=== PATIENT | female | born 1935 | race Caucasian/White ===

== ENCOUNTER 2016-09-17 07:08 | Day surgery (SDC) | payer MEDICARE ==
[~2016-09-17] VITALS: Ht 160 cm; Wt 55.5 kg
[~2016-09-17 07:08] MED LIST: BENEPOW8 PO; CALC600T44 PO; COZA50TA PO; HYDR12.56 PO; LIDOCAINE 1%/EPINEPHrine 1:100,000 SOLN 20 ML VIAL ONE; METH5TAB PO; RIVA20 PO; TAB-TAB PO; ULTR50TA PO; VITA400C28 PO
[2016-09-17] MEDS ORDERED: METH5TAB PO (07:23)
[2016-09-17 07:24] VITALS: BP 149/87; PULSE 101; RESP 20; TEMP 98.2; O2SAT 98
[2016-09-17] MEDS ORDERED: HYDR12.57 PO (07:24)
[2016-09-17] MEDS ORDERED: COZA100T PO (07:24)
[2016-09-17] MEDS ORDERED: XARE20TA PO (07:25)
[2016-09-17] MEDS ORDERED: SODIUM CHLOR 0.9% 1000 ML IV SCH (08:00)
[2016-09-17] MEDS ORDERED: fentaNYL CITRATE 250 MCG/5 ML AMP ONE (08:29)
[2016-09-17] MEDS ORDERED: MIDAZOLAM HCL 5 MG/5 ML VIAL ONE (08:29)
[2016-09-17 09:40] VITALS: BP 103/63; PULSE 71; RESP 20; TEMP 96.3; O2SAT 94
[2016-09-17 09:55] VITALS: BP 96/56; PULSE 89; RESP 20; O2SAT 95
[2016-09-17] MEDS ORDERED: oxyCODONE/ACETAMINOPHEN 5 MG/325 MG TAB PO PRN (10:00)
--- NOTE | 2016-09-17 10:13 | RADRPT ---
EXAM DATE/TIME: 09/17/2016 08:42 [facility] COMPARISON: No previous studies available for comparison. INDICATIONS : Left chest wall mass. SEDATION TIME: 30 minutes BIOPSY SITE: Left chest wall. MEDICATION(S): 1.) 2.5 mg midazolam (Versed) IV 2.) 125 mcg fentanyl (Sublimaze) IV DEVICE(S): 1.) 18 gauge Temno core biopsy needle MEDICAL HISTORY : Carcinoma, breast. Diverticulosis. Hypertension. Chronic kidney disease. SURGICAL HISTORY : Mastectomy, left. Hysterectomy. Appendectomy. ENCOUNTER: Initial ACUITY: 1 day PAIN SCORE: 0/10 LOCATION: Left axilla/chest wall. A total of two core specimen(s) were obtained and sent to the laboratory for pathologic evaluation. PROCEDURE: 1. CT guided chest wall, left biopsy. 2. Conscious sedation with continuous EKG and oximetry monitoring. 3. EKG and oximetry remained stable throughout the procedure. Prior to the procedure informed consent was obtained. Any appropriate prior imaging studies were rev iewed. The site was prepped in a sterile fashion. Full sterile technique was used, including cap, mask, hoa rile gloves and gown and a large sterile sheet. Hand hygiene and 2% chlorhexidine and/or betadine/al cohol prep was utilized per protocol for cutaneous antisepsis. The skin and subcutaneous tissues wer e infiltrated with local anesthetic solution. With CT guidance the previously identified target was localized. Biopsy was performed using the presc ribed needle as above. Adequate hemostasis was obtained with compression at the puncture site. Follow-up CT scan reveals no hemorrhage. The patient tolerated the procedure well and there were no complications. The patient was returned to the Radiology Outpatient Unit in stable condition. CONCLUSION: Uncomplicated CT guided biopsy. Bassam Alonzo MD on September 17, 2016 at 10:11 Board Certified Radiologist. This report was verified electronically.
[2016-09-17 10:25] VITALS: BP 87/49; PULSE 87; RESP 20; O2SAT 95
[2016-09-17 10:55] VITALS: BP 92/52; PULSE 73; RESP 20; O2SAT 95
[2016-09-17 11:25] VITALS: BP 93/54; PULSE 82; RESP 20; O2SAT 97
== END 2016-09-17 11:50 | disposition home or self-care (01) ==
LOC: HROP 07:08 → HRIP 07:09 → HROP 11:50
PROVIDERS: ATTEND Surgery
DX: R22.2 Localized swelling, mass and lump, trunk (principal); I12.9 Hypertensive chronic kidney disease with stage 1 through stage 4 chronic kidney disease, or unspecified chronic kidney disease; N18.9 Chronic kidney disease, unspecified
CPT/HCPCS: 20206; 77012; 88305; 99152; 99153; J1642; J2250; J3010; J7030

== ENCOUNTER 2017-03-04 09:47 | Day surgery (SDC) | payer MEDICARE ==
[~2017-03-04 09:47] MED LIST changes: -BENEPOW8 PO; -CALC600T44 PO; +COZA100T PO; -COZA50TA PO; -HYDR12.56 PO; +HYDR12.57 PO; -LIDOCAINE 1%/EPINEPHrine 1:100,000 SOLN 20 ML VIAL ONE; -RIVA20 PO; -TAB-TAB PO; -ULTR50TA PO; -VITA400C28 PO; +XARE20TA PO
[2017-03-04 10:39] VITALS: BP 163/95; PULSE 78; RESP 14; TEMP 97; O2SAT 97
[2017-03-04 11:45] VITALS: BP 187/87; PULSE 73; RESP 18; O2SAT 98
[2017-03-04] MEDS ORDERED: LIDOCAINE HCL 1% PF 30 ML VIAL ONE (11:48)
[2017-03-04 12:00] VITALS: BP 151/81; PULSE 64; RESP 16; O2SAT 100
[2017-03-04 12:30] VITALS: BP 143/81; PULSE 65; RESP 18; O2SAT 99
--- NOTE | 2017-03-04 13:41 | RADRPT ---
EXAM DATE/TIME: 03/04/2017 10:14 [facility] COMPARISON: No previous studies available for comparison. EXTERNAL COMPARISON: [facility], MR SHOULDER WITH AND WITHOUT CONTRAST, Feb 15 2017. [facility], MR SHOULD ER WITH AND WITHOUT CONTRAST, NOVEMBER 19, 2016. [facility], MR SHOULDER LEFT WITH AND WITHOUT C ONTRAST, Aug 13, 2016. [facility], MR SHOULDER LEFT WITH CONTRAST, Jan 29, 2016. [facility], CT CHEST WITH CONTRAST, February 15, 2017. [facility], CT chest without contrast, Mar 16, 016. INDICATIONS : Enlarged lymph node left axilla. MEDICAL HISTORY : Hypertension. Arthritis. Blood clots. Breast cancer. Radiation therapy. SURGICAL HISTORY : Appendectomy. Hysterectomy. Tonsillectomy. Left axillary mass biopsy. Endoscopy. Colonoscopy. Mastect alivia. Lumpectomy. ENCOUNTER: Initial ACUITY: 2 weeks PAIN SCORE: 0/10 LOCATION: Left axilla. ORGAN: Left lymph node SPECIMENS: One fine needle aspirate(s) submitted for pathologic evaluation. DEVICE: 22 gauge needle Post procedure scanning reveals no hematoma or other complication. The possibility does exist that the tissue obtained will be non-diagnostic. If the sample is non-rc gnostic a repeat biopsy or surgical biopsy may need to be performed. TECHNIQUE: 1. Ultrasound guidance for needle aspiration. 2. Aspiration. The risks, benefits, and alternatives to ultrasound guided aspiration were explained to the patient i n detail including the risk of bleeding and infection. Written and verbal informed consent was obtai esther. With the patient on the ultrasound table, ultrasound imaging was used to select the most appropriate approach for aspiration. The dominant lesion in the left axilla measured 3.4 x 2.5 x 2.3 cm and appea rs to completely encompass the axillary artery. In addition, the axillary vein draped over the lesion . Additional smaller lymph nodes were identified in this region but overall normal by size criteria and appear to contain fatty martin suggesting benignity. I did not feel there was a safe approach for a co re biopsy of the dominant lesion due to the regional vascularity and therefore, a 22 gauge FNA was pe rformed on a small projection of abnormally appearing tissue just anterior to the artery using real-t harjeet ultrasound guidance. CONCLUSION: Uncomplicated ultrasound guided FNA as above. Slides were prepared bedside. Galileo Bernabe MD on March 04, 2017 at 13:31 Board Certified Radiologist. This report was verified electronically.
== END 2017-03-04 12:35 | disposition home or self-care (01) ==
LOC: HRAD 09:47 → HRIP 09:48 → HRAD 12:35
PROVIDERS: ATTEND Internal Medicine Hematology & Oncology
DX: C96.9 Malignant neoplasm of lymphoid, hematopoietic and related tissue, unspecified (principal); Z85.3 Personal history of malignant neoplasm of breast; I10 Essential (primary) hypertension; M19.90 Unspecified osteoarthritis, unspecified site; Z92.3 Personal history of irradiation; Z90.12 Acquired absence of left breast and nipple
CPT/HCPCS: 10022; 76942; 88172; 88173; 88333

== ENCOUNTER 2017-06-22 14:08 | Emergency (ER) | payer MEDICARE ==
[~2017-06-22] VITALS: Ht 157.5 cm; Wt 55.1 kg
[2017-06-22 14:11] VITALS: BP 220/118; PULSE 82; RESP 16; TEMP 98.2; O2SAT 98
--- NOTE | 2017-06-22 15:03 | PD ---
HPI Chief Complaint: Skin Problem Time Seen by Provider: 14:39 Travel History International Travel<30 days: No Contact w/Intl Traveler<30days: No Traveled to known affect area: No History of Present Illness HPI The patient is a 81-year-old female who presents emergency department for right upper extremity swelling after an IV infiltrated. The patient was having a CT of her chest performed earlier today at [facility] when she was administered IV contrast in the IV infiltrated. The patient states she has no swelling over the affected area and was given some precautions including elevate, ice, and follow-up with her physician. However, the patient states the swelling concerned her and she presented to the emergency department for further evaluation. She denies any acute numbness or tingling of the right upper extremity. She does know some coolness over the affected area secondary to ice placement with mild edema, but denies any erythema or skin color changes. She denies any pain to the affected area. Symptoms are mild, exacerbated after IV contrast infiltrated, and there are no current alleviating factors. PFSH Past Medical History Hx Anticoagulant Therapy: Yes Cancer: Yes (LEFT BREAST (2)) Cardiovascular Problems: No Diabetes: No Diminished Hearing: No Endocrine: No Gastrointestinal Disorders: No Glaucoma: No Genitourinary: No Hepatitis: No Hiatal Hernia: No Hypertension: Yes Immune Disorder: No Medical other: Yes (blood clot lt arm) Musculoskeletal: Yes (ARTHRITIS) Neurologic: Yes (MIGRAINES) Psychiatric: No Reproductive: No Respiratory: No Thyroid Disease: No Influenza Vaccination: No (WILL BE GETTING IT 06/25/17) ?: Not Past Surgical History Abdominal Surgery: Yes (APPENDECTOMY 1950) AICD: No Appendectomy: Yes Cardiac Surgery: No Ear Surgery: No Endocrine Surgery: No Eye Surgery: No Genitourinary Surgery: No Gynecologic Surgery: Yes (HYSTERECTOMY X30YRS AGO) Hysterectomy: Yes Joint Replacement: No Neurologic Surgery: No Oral Surgery: Yes (TONSILLECTOMY IN 1963) Pacemaker: No Thoracic Surgery: Yes (LEFT BREAST LUMPECTOMY, LEFT MASTECTOMY) Tonsillectomy: Yes Other Surgery: Yes Social History Alcohol Use: Yes (OCCAS ) Tobacco Use: No Substance Use: No Allergies-Medications (Allergen,Severity, Reaction): Coded Allergies: acetaminophen (Unverified Allergy, Severe, ANXIETY, 03/23/17) meperidine (Unverified Allergy, Severe, Irritability/Anxiety, 03/23/17) morphine (Unverified Allergy, Severe, Irritability/Anxiety, 03/23/17) oxycodone (Unverified Allergy, Severe, ANXIETY, 03/23/17) Reported Meds & Prescriptions Reported Meds & Active Scripts Active Reported Xarelto (Rivaroxaban) 20 Mg Tab 20 Mg PO DAILY Hydrochlorothiazide 12.5 Mg Cap 12.5 Mg PO DAILY Cozaar (Losartan Potassium) 100 Mg Tab 100 Mg PO DAILY Review of Systems General / Constitutional: No: Fever Cardiovascular: No: Chest Pain or Discomfort Respiratory: No: Shortness of Breath Gastrointestinal: No: Nausea, Vomiting Musculoskeletal: Positive: Edema, No: Pain Neurologic: No: Paresthesia, Sensory Disturbance Physical Exam Narrative GENERAL: Awake, alert, pleasant 81 year-old female who appears her stated age and is in no acute respiratory distress. SKIN: Focused skin assessment warm/dry. HEAD: Atraumatic. Normocephalic. EYES: No injection or drainage. ENT: No nasal bleeding or discharge. Mucous membranes pink and moist. NECK: Trachea midline. No JVD. CARDIOVASCULAR: Regular rate and rhythm. No murmur appreciated. RESPIRATORY: No accessory muscle use. Clear to auscultation. Breath sounds equal bilaterally. MUSCULOSKELETAL: The right upper extremity has some mild edema to the distal aspect the right humerus and proximal right forearm. Positive right radial pulse. Positive right brachial pulse. No visible skin necrosis. Intrinsic hand muscles are intact. Arthritis noted of the patient's digits on the right hand. Intrinsic hand muscles are intact. NEUROLOGICAL: Awake and alert. No obvious cranial nerve deficits. Motor grossly within normal limits. Normal speech. Sensation is intact to the radial , median, and ulnar distribution of the right hand. PSYCHIATRIC: Appropriate mood and affect; insight and judgment normal. Data Data Last Documented VS Vital Signs Date Time Temp Pulse Resp B/P (MAP) Pulse Ox O2 Delivery O2 Flow Rate FiO2 06/22/17 14:11 98.2 82 16 220/118 (152) 98 Orders Orders Ed Discharge Order (06/22/17 16:40) [facility] Medical Decision Making Medical Screen Exam Complete: Yes Emergency Medical Condition: Yes Medical Record Reviewed: Yes Differential Diagnosis Differential diagnosis includes IV contrast infiltration, DVT, fistula, aneurysm , compartment syndrome, edema. Narrative Course I had a discussion with radiology, who states to elevate, ice, evaluate for skin necrosis. The patient is neurovascularly intact. The patient will be observed in the emergency department will have repeat neurologic and vascular evaluations. The right upper extremity had ice applied and was elevated in the emergency department. The patient was reevaluated once again at 3:50 PM. The patient continued to have a right radial pulse, the edema improved. She has no pain. Patient was once again monitored. The patient was reevaluated at 4:40 PM , she continues to be neurovascularly intact, the swelling has improved. She will be discharged home. Diagnosis Primary Impression: Edema at injection site Additional Instructions: Elevate, ice, monitor for signs of infection or neurovascular insufficiency. Return if symptoms worsen or progress. Follow-up with your primary physician. Med/Other Pt SpecificInfo: No Change to Meds Disposition: 01 DISCHARGE HOME Condition: Stable Mata Pulliam MD Jun 22, 2017 15:03
== END 2017-06-22 17:58 | disposition home or self-care (01) ==
LOC: NEPD 14:08
DX: R60.9 Edema, unspecified (principal); I10 Essential (primary) hypertension; M19.90 Unspecified osteoarthritis, unspecified site; Z85.3 Personal history of malignant neoplasm of breast; Z79.899 Other long term (current) drug therapy; Z88.6 Allergy status to analgesic agent; Z88.5 Allergy status to narcotic agent; Z88.8 Allergy status to other drugs, medicaments and biological substances
CPT/HCPCS: 99281

== ENCOUNTER 2017-07-10 16:11 | Inpatient (IN) | payer MEDICARE ==
[~2017-07-10] VITALS: Ht 160 cm; Wt 57.3 kg
[~2017-07-10 16:11] MED LIST changes: -METH5TAB PO
[2017-07-10 16:14] VITALS: BP 225/102; PULSE 65; RESP 15; TEMP 97.7; O2SAT 97
[2017-07-10] MEDS ORDERED: SODIUM CHLOR 0.9% 1000 ML INJ 1,000 ML IV ONE (16:58)
[2017-07-10] MEDS ORDERED: SODIUM CHLORIDE 0.9% FLUSH 10 ML FLUSH IVF PRN (17:00)
[2017-07-10] MEDS ORDERED: ONDANSETRON HCL 4 MG/2 ML VIAL IV PUSH ONE ×2 (17:00→19:00)
--- NOTE | 2017-07-10 17:28 | PD ---
HPI Chief Complaint: Edema Time Seen by Provider: 16:46 Travel History International Travel<30 days: No Contact w/Intl Traveler<30days: No Traveled to known affect area: No History of Present Illness HPI Patient is a 81-year-old female presenting to the emergency department for evaluation of left arm numbness and left hand swelling. Patient states it started at 1 PM today. She reports the dry heaves since Wednesday. She has been intolerant of food and fluids. She has started a new chemotherapy men on Wednesday of this week. She has felt nauseated and has been vomiting since that time. She went to [facility] yesterday and was given IV fluid hydration. She was then discharged home. Patient has a history of breast cancer and a left axillary mass. She reports that she's had numbness and swelling in her left arm in the past. She states it's worse today, she denies any weakness. Patient further denies any chest pain, shortness of breath, fever , chills, abdominal pain. PFSH Past Medical History Hx Anticoagulant Therapy: Yes (XARELTO) Cancer: Yes (LEFT BREAST (2)) Chemotherapy: Yes Hypertension: Yes Implanted Vascular Access Dvce: Yes (RIGHT CHEST PORT) Medical other: Yes (blood clot lt arm) Migraines: Yes Past Surgical History Appendectomy: Yes Gynecologic Surgery: Yes (PARTAIL HYSTERECTOMY ) Thoracic Surgery: Yes (LEFT BREAST LUMPECTOMY, LEFT MASTECTOMY) Tonsillectomy: Yes Social History Alcohol Use: Yes (OCCAS ) Tobacco Use: No Substance Use: No Allergies-Medications (Allergen,Severity, Reaction): Coded Allergies: meperidine (Verified Allergy, Severe, Irritability/Anxiety, 07/10/17) morphine (Verified Allergy, Severe, Irritability/Anxiety, 07/10/17) oxycodone (Verified Allergy, Severe, ANXIETY, 07/10/17) acetaminophen (Verified Adverse Reaction, Severe, ANXIETY, 07/10/17) Reported Meds & Prescriptions Reported Meds & Active Scripts Active Reported Xarelto (Rivaroxaban) 20 Mg Tab 20 Mg PO DAILY Hydrochlorothiazide 12.5 Mg Cap 12.5 Mg PO DAILY Cozaar (Losartan Potassium) 100 Mg Tab 100 Mg PO DAILY Review of Systems Except as stated in HPI: all other systems reviewed are Neg Gastrointestinal: Positive: Nausea, Vomiting Musculoskeletal: Positive: Edema Neurologic: Positive: Sensory Disturbance, No: Weakness, Focal Abnormalities Physical Exam Narrative GENERAL: Well-developed, well-nourished, alert female. Resting comfortably in no acute distress. SKIN: Warm and dry. HEAD: Atraumatic. Normocephalic. EYES: Pupils equal and round. No scleral icterus. No injection or drainage. ENT: No nasal bleeding or discharge. Mucous membranes pink and moist. NECK: Trachea midline. No JVD. CARDIOVASCULAR: Regular rate and rhythm. RESPIRATORY: No accessory muscle use. Clear to auscultation. Breath sounds equal bilaterally. GASTROINTESTINAL: Abdomen soft, non-tender, nondistended. Hepatic and splenic margins not palpable. MUSCULOSKELETAL: Extremities without clubbing, cyanosis, or edema. No obvious deformities. NEUROLOGICAL: Awake and alert. No obvious cranial nerve deficits. Motor grossly within normal limits. Five out of 5 muscle strength in the arms and legs. Normal speech. PSYCHIATRIC: Appropriate mood and affect; insight and judgment normal. Data Data Last Documented VS Vital Signs Date Time Temp Pulse Resp B/P (MAP) Pulse Ox O2 Delivery O2 Flow Rate FiO2 07/10/17 19:17 89 18 156/72 (100) 97 07/10/17 18:35 Room Air 07/10/17 16:14 97.7 Orders Orders Complete Blood Count With Diff (07/10/17 16:58) Comprehensive Metabolic Panel (07/10/17 16:58) Lipase (07/10/17 16:58) Iv Access Insert/Monitor (07/10/17 16:58) Ecg Monitoring (07/10/17 16:58) Oximetry (07/10/17 16:58) Ondansetron Inj (Zofran Inj) (07/10/17 17:00) Sodium Chlor 0.9% 1000 Ml Inj (Ns 1000 M (07/10/17 16:58) Sodium Chloride 0.9% Flush (Ns Flush) (07/10/17 17:00) Us Arm Venous Doppler (07/10/17 ) Hydralazine Inj (Apresoline Inj) (07/10/17 19:00) Ondansetron Inj (Zofran Inj) (07/10/17 19:00) Potassium Chlor 20 Meq Premix (Kcl 20 Me (07/10/17 20:00) Prochlorperazine Inj (Compazine Inj) (07/10/17 20:15) Diphenhydramine Inj (Benadryl Inj) (07/10/17 20:15) Pantoprazole Inj (Protonix Inj) (07/10/17 20:15) Admit Order (Ed Use Only) (07/10/17 20:14) Labs Laboratory Tests Test 07/10/17 18:15 White Blood Count 7.4 TH/MM3 Red Blood Count 3.25 MIL/MM3 Hemoglobin 11.2 GM/DL Hematocrit 31.6 % Mean Corpuscular Volume 97.3 FL Mean Corpuscular Hemoglobin 34.4 PG Mean Corpuscular Hemoglobin Concent 35.4 % Red Cell Distribution Width 13.1 % Platelet Count 266 TH/MM3 Mean Platelet Volume 7.7 FL Neutrophils (%) (Auto) 85.6 % Lymphocytes (%) (Auto) 6.4 % Monocytes (%) (Auto) 7.9 % Eosinophils (%) (Auto) 0.0 % Basophils (%) (Auto) 0.1 % Neutrophils # (Auto) 6.3 TH/MM3 Lymphocytes # (Auto) 0.5 TH/MM3 Monocytes # (Auto) 0.6 TH/MM3 Eosinophils # (Auto) 0.0 TH/MM3 Basophils # (Auto) 0.0 TH/MM3 CBC Comment DIFF FINAL Differential Comment Blood Urea Nitrogen 17 MG/DL Creatinine 0.97 MG/DL Random Glucose 118 MG/DL Total Protein 8.1 GM/DL Albumin 3.2 GM/DL Calcium Level 8.8 MG/DL Alkaline Phosphatase 105 U/L Aspartate Amino Transf (AST/SGOT) 35 U/L Alanine Aminotransferase (ALT/SGPT) 61 U/L Total Bilirubin 0.6 MG/DL Sodium Level 125 MEQ/L Potassium Level 2.4 MEQ/L Chloride Level 86 MEQ/L Carbon Dioxide Level 30.6 MEQ/L Anion Gap 8 MEQ/L Estimat Glomerular Filtration Rate 55 ML/MIN Lipase 193 U/L MDM Medical Decision Making Medical Screen Exam Complete: Yes Emergency Medical Condition: Yes Medical Record Reviewed: Yes Interpretation(s) Laboratory Tests Test 07/10/17 18:15 White Blood Count 7.4 TH/MM3 Red Blood Count 3.25 MIL/MM3 Hemoglobin 11.2 GM/DL Hematocrit 31.6 % Mean Corpuscular Volume 97.3 FL Mean Corpuscular Hemoglobin 34.4 PG Mean Corpuscular Hemoglobin Concent 35.4 % Red Cell Distribution Width 13.1 % Platelet Count 266 TH/MM3 Mean Platelet Volume 7.7 FL Neutrophils (%) (Auto) 85.6 % Lymphocytes (%) (Auto) 6.4 % Monocytes (%) (Auto) 7.9 % Eosinophils (%) (Auto) 0.0 % Basophils (%) (Auto) 0.1 % Neutrophils # (Auto) 6.3 TH/MM3 Lymphocytes # (Auto) 0.5 TH/MM3 Monocytes # (Auto) 0.6 TH/MM3 Eosinophils # (Auto) 0.0 TH/MM3 Basophils # (Auto) 0.0 TH/MM3 CBC Comment DIFF FINAL Differential Comment Blood Urea Nitrogen 17 MG/DL Creatinine 0.97 MG/DL Random Glucose 118 MG/DL Total Protein 8.1 GM/DL Albumin 3.2 GM/DL Calcium Level 8.8 MG/DL Alkaline Phosphatase 105 U/L Aspartate Amino Transf (AST/SGOT) 35 U/L Alanine Aminotransferase (ALT/SGPT) 61 U/L Total Bilirubin 0.6 MG/DL Sodium Level 125 MEQ/L Potassium Level 2.4 MEQ/L Chloride Level 86 MEQ/L Carbon Dioxide Level 30.6 MEQ/L Anion Gap 8 MEQ/L Estimat Glomerular Filtration Rate 55 ML/MIN Lipase 193 U/L Vital Signs Date Time Temp Pulse Resp B/P (MAP) Pulse Ox O2 Delivery O2 Flow Rate FiO2 07/10/17 16:29 96 Room Air 07/10/17 16:14 97.7 65 15 225/102 (143) 97 Last Impressions Upper Extremity Ultrasound 07/10/17 0000 Signed Impressions: Service Date/Time: Monday, July 10, 2017 17:45 - CONCLUSION: 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 Jose Manuel Rodriguez MD Differential Diagnosis DVT versus lymphedema versus metabolic abnormality versus intractable nausea and vomiting versus medication side effect versus other Narrative Course Patient presented for evaluation of left arm numbness and left hand swelling. No obvious edema to the left hand on exam. Patient has a 2+ radial pulses, there are no focal deficits noted. Ultrasound of the left upper extremity is ordered and pending. Labs and IV fluids as well as Zofran ordered. Ultrasound the left arm shows occluded left axillary pain and lower internal jugular vein. Discussed with the reading radiologist who stated it was not a DVT but the mass effect from the left axillary masses causing the occlusion. There is no discrete thrombus noted. CBC reviewed, no acute findings identified. Patient reassessed, she continued to report nausea. Additional dose of Zofran ordered. Patient remains hypertensive, hydralazine 20 mg IV 1 dose ordered. BP normalized K 2.4 and NA 125, IVF and IV KCL ordered. Pt continues to c/o nausea and epigastric abdominal cramping. Protonix, compazine, benadry ordered. Discussed with Dr. Rees, admit orders placed. Diagnosis Primary Impression: Mass of left axilla Additional Impressions: Intractable nausea and vomiting Qualified Codes: R11.2 - Nausea with vomiting, unspecified Hypokalemia Hyponatremia Admitting Information Admitting Physician Requests: Observation Condition: Stable Caitlin Cano Jul 10, 2017 17:28
[2017-07-10 18:35] VITALS: RESP 16; O2SAT 98
--- NOTE | 2017-07-10 18:39 | RADRPT ---
EXAM DATE/TIME: 07/10/2017 17:45 [facility] COMPARISON: CT CHEST WALL BIOPSY, LEFT, September 17, 2016, 8:42. INDICATIONS : Left arm swelling. MEDICAL HISTORY : Hypertension. Carcinoma, breast. Anticoagulant therapy, xarelto. Renal calculi. SURGICAL HISTORY : Tonsillectomy. Mastectomy, left. Crowns. Left breast lumpectomy. Right chest port. ENCOUNTER: Initial ACUITY: 3 days PAIN SCORE: 6/10 LOCATION: Left arm. FINDINGS: Left axillary mass with occlusion of the axillary vein and lower portions of the internal jugular vei n noted. Other venous tributaries are patent. 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 Jose Manuel Rodriguez MD on July 10, 2017 at 18:33 Board Certified Radiologist. This report was verified electronically.
[2017-07-10] MEDS ORDERED: hydrALAZINE HCL 20 MG/ML VIAL IV PUSH ONE (19:00)
[2017-07-10 19:02] LABS: AUTOMATED NEUTROPHIL # 6.3 TH/MM3 (1.8-7.7); BASOPHIL % 0.1 % (0.0-2.0); HEMATOCRIT 31.6 % (35.0-46.0); HEMO FLAGS DIFF FINAL; LYMPH % 6.4 % (9.0-44.0); LYMPHOCYTE # 0.5 TH/MM3 (1.0-4.8); MEAN CELL VOLUME 97.3 FL (80.0-100.0); MEAN CORPUSCULAR HEMOGLOBIN 34.4 PG (27.0-34.0); MEAN CORPUSCULAR HGB CONC 35.4 % (32.0-36.0); MONO % 7.9 % (0.0-8.0); NEUT % 85.6 % (16.0-70.0); PLATELET COUNT 266 TH/MM3 (150-450); RED BLOOD COUNT 3.25 MIL/MM3 (4.00-5.30); RED CELL DISTRIBUTION WIDTH 13.1 % (11.6-17.2); WHITE BLOOD COUNT 7.4 TH/MM3 (4.0-11.0)
[2017-07-10 19:17] VITALS: BP 156/72; PULSE 89; RESP 18; O2SAT 97
[2017-07-10 19:49] LABS: ANION GAP 8 MEQ/L (5-15)
[2017-07-10 19:51] LABS: ALKALINE PHOSPHATASE 105 U/L (45-117); ALT (GPT) 61 U/L (10-53); AST (GOT) 35 U/L (15-37); BICARBONATE 30.6 MEQ/L (21.0-32.0); BLOOD UREA NITROGEN 17 MG/DL (7-18); CHLORIDE 86 MEQ/L (98-107); GLOMERULAR FILTRATION RATE 55 ML/MIN (>89); SODIUM (NA) 125 MEQ/L (136-145); TOTAL BILIRUBIN ADULT 0.6 MG/DL (0.2-1.0)
[2017-07-10 19:53] LABS: POTASSIUM 2.4 MEQ/L (3.5-5.1)
[2017-07-10] MEDS ORDERED: PROCHLORPERAZINE INJ 10 MG/2 ML VIAL IV PUSH ONE (20:15)
[2017-07-10] MEDS ORDERED: PANTOPRAZOLE SODIUM 40 MG VIAL IV PUSH ONE (20:15)
[2017-07-10] MEDS ORDERED: diphenhydrAMINE HCL 50 MG/ML VIAL IV PUSH ONE (20:15)
[2017-07-10] MEDS: POTASSIUM CHLOR 20 MEQ PREMIX 100 ML IV SCH (20:27)
[2017-07-10 20:37] VITALS: BP 153/74; PULSE 100; RESP 18; O2SAT 97
[2017-07-10] MEDS ORDERED: SENNOSIDES 8.6 MG TAB PO PRN (22:00)
[2017-07-10] MEDS ORDERED: SODIUM CHLORIDE 0.9% FLUSH 10 ML FLUSH IV FLUSH PRN (22:00)
[2017-07-10] MEDS ORDERED: MAGNESIUM HYDROXIDE SUSP 30 ML CUP PO PRN (22:00)
[2017-07-10] MEDS ORDERED: LACTULOSE SYRUP 20 GM/30 ML CUP PO PRN (22:00)
[2017-07-10] MEDS ORDERED: ONDANSETRON HCL 4 MG/2 ML VIAL IVP PRN (22:00)
[2017-07-10] MEDS ORDERED: NALOXONE HCL 0.4 MG/ML AMP IV PUSH PRN (22:00)
[2017-07-10] MEDS ORDERED: BISACODYL 10 MG SUPP RECTAL PRN (22:00)
[2017-07-10] MEDS ORDERED: TEMAZEPAM 15 MG CAP PO PRN (22:00)
[2017-07-10] MEDS ORDERED: ENALAPRILAT 1.25 MG/ML VIAL IV PUSH PRN (22:15)
--- NOTE | 2017-07-10 22:28 | HHI.HP ---
HPI Service [facility] Primary Care Physician Keke Chapa MD Admission Diagnosis INTRACTABLE N/V, HYPOKALEMIA, HYPONATREMIA Chief Complaint: intractable N/V on chemo trial Travel History International Travel<30 Days: No Contact w/Intl Traveler <30 Da: No Traveled to Known Affected Are: No History of Present Illness Patient is a 81-year-old female presenting to the emergency department for evaluation of left arm numbness and left hand swelling. Patient states it started at 1 PM today. She reports the dry heaves since Wednesday. She has been intolerant of food and fluids. She has started a new chemotherapy men on Wednesday of this week. She has felt nauseated and has been vomiting since that time. She went to [facility] yesterday and was given IV fluid hydration. She was then discharged home. Patient has a history of breast cancer and a left axillary mass. She reports that she's had numbness and swelling in her left arm in the past. She states it's worse today, she denies any weakness. Patient further denies any chest pain, shortness of breath, fever , chills, abdominal pain. Patient was dx 02/07 with ER positive disease completed adjunctive hormonal therapy . In 08/20 second primary left breast cancer s/p surgery and chemo. 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 In 02/21 left upper extremity DVT on Xarelto . In work up was found to have Left Axillary mass BX-poorly diff cancer consistent with breast as primary received chemo and RT completed 07/24 . In 11/23 and 02/22 metastatic to lymph nodes and just started clinical trialand has had nausea and vomit and on labs significant hyponatremia and hypokalemia and will admit for zofran and IV fluid replacement potassium. Patient also has left arm pain and swelling ultrasound showed occulsion but from axillary tumor and not blood clot. Review of Systems Gastrointestinal: COMPLAINS OF: Nausea, Vomiting Past Family Social History Past Medical History breast cancer,hypertension,DVT upper extremity,cellulitis Past Surgical History appendix,hysterectomy.mastectomy,lumpectomy tonsil Reported Medications Xarelto (Rivaroxaban) 20 Mg Tab 20 Mg PO DAILY Hydrochlorothiazide 12.5 Mg Cap 12.5 Mg PO DAILY Cozaar (Losartan Potassium) 100 Mg Tab 100 Mg PO DAILY Allergies: Coded Allergies: meperidine (Verified Allergy, Severe, Irritability/Anxiety, 07/10/17) morphine (Verified Allergy, Severe, Irritability/Anxiety, 07/10/17) oxycodone (Verified Allergy, Severe, ANXIETY, 07/10/17) acetaminophen (Verified Adverse Reaction, Severe, ANXIETY, 07/10/17) Social History NS,ND Physical Exam Vital Signs Vital Signs Date Time Temp Pulse Resp B/P (MAP) Pulse Ox O2 Delivery O2 Flow Rate FiO2 07/10/17 20:37 100 18 153/74 (100) 97 07/10/17 19:17 89 18 156/72 (100) 97 07/10/17 18:35 16 98 Room Air 07/10/17 16:29 96 Room Air 07/10/17 16:14 97.7 65 15 225/102 (143) 97 Physical Exam GENERAL: This is a well-nourished, well-developed patient, in no apparent distress. SKIN: No rashes, ecchymoses or lesions. Cool and dry.left mastectomy some swelling left hand HEAD: Atraumatic. Normocephalic. No temporal or scalp tenderness. EYES: Pupils equal round and reactive. Extraocular motions intact. No scleral icterus. No injection or drainage. ENT: Nose without bleeding, purulent drainage or septal hematoma. Throat without erythema, tonsillar hypertrophy or exudate. Uvula midline. Airway patent. NECK: Trachea midline. No JVD or lymphadenopathy. Supple, nontender, no meningeal signs. CARDIOVASCULAR: Regular rate and rhythm without murmurs, gallops, or rubs. RESPIRATORY: Clear to auscultation. Breath sounds equal bilaterally. No wheezes , rales, or rhonchi. GASTROINTESTINAL: Abdomen soft, non-tender, nondistended. No hepato-splenomegaly , or palpable masses. No guarding. MUSCULOSKELETAL: Extremities without clubbing, cyanosis, or edema. No joint tenderness, effusion, or edema noted. No calf tenderness. Negative Homans sign bilaterally. NEUROLOGICAL: Awake and alert. Cranial nerves II through XII intact. Motor and sensory grossly within normal limits. Five out of 5 muscle strength in all muscle groups. Normal speech. Laboratory Laboratory Tests Test 07/10/17 18:15 White Blood Count 7.4 Red Blood Count 3.25 Hemoglobin 11.2 Hematocrit 31.6 Mean Corpuscular Volume 97.3 Mean Corpuscular Hemoglobin 34.4 Mean Corpuscular Hemoglobin Concent 35.4 Red Cell Distribution Width 13.1 Platelet Count 266 Mean Platelet Volume 7.7 Neutrophils (%) (Auto) 85.6 Lymphocytes (%) (Auto) 6.4 Monocytes (%) (Auto) 7.9 Eosinophils (%) (Auto) 0.0 Basophils (%) (Auto) 0.1 Neutrophils # (Auto) 6.3 Lymphocytes # (Auto) 0.5 Monocytes # (Auto) 0.6 Eosinophils # (Auto) 0.0 Basophils # (Auto) 0.0 CBC Comment DIFF FINAL Differential Comment Blood Urea Nitrogen 17 Creatinine 0.97 Random Glucose 118 Total Protein 8.1 Albumin 3.2 Calcium Level 8.8 Alkaline Phosphatase 105 Aspartate Amino Transf (AST/SGOT) 35 Alanine Aminotransferase (ALT/SGPT) 61 Total Bilirubin 0.6 Sodium Level 125 Potassium Level 2.4 Chloride Level 86 Carbon Dioxide Level 30.6 Anion Gap 8 Estimat Glomerular Filtration Rate 55 Lipase 193 Result Diagram: 07/10/17 18107/10/17 1815 Imaging Last 24 hours Impressions Upper Extremity Ultrasound 07/10/17 0000 Signed Impressions: Service Date/Time: Monday, July 10, 2017 17:45 - CONCLUSION: 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 Jose Manuel Rodriguez MD Course in er started on IV fluid and potassium and given zofran ,blood pressure was high received hydralazine Caprini VTE Risk Assessment Caprini VTE Risk Assessment: Mod/High Risk (score >= 2) Caprini Risk Assessment Model Point Value = 1 Point Value = 2 Point Value = 3 Point Value = 5 Age 41-60 Minor surgery BMI > 25 kg/m2 Swollen legs Varicose veins or History of unexplained or recurrent spontaneous Oral contraceptives or hormone replacement Sepsis (< 1 month) Serious lung disease, including pneumonia (< 1 month) Abnormal pulmonary function Acute myocardial infarction Congestive heart failure (< 1 month) History of inflammatory bowel disease Medical patient at bed rest Age 61-74 Arthroscopic surgery Major open surgery (> 45 min) Laparoscopic surgery (> 45 min) Malignancy Confined to bed (> 72 hours) Immobilizing plaster cast Central venous access Age >= 75 History of VTE Family history of VTE Factor V Leiden Prothrombin [id number] Lupus anticoagulant Anticardiolipin antibodies Elevated serum homocysteine Heparin-induced thrombocytopenia Other congenital or acquired thrombophilia Stroke (< 1 month) Elective arthroplasty Hip, pelvis, or leg fracture Acute spinal cord injury (< 1 month) Prophylaxis Regimen Total Risk Factor Score Risk Level Prophylaxis Regimen 0-1 Low Early ambulation 2 Moderate Order ONE of the following: *Sequential Compression Device (SCD) *Heparin 5000 units SQ BID 3-4 Higher Order ONE of the following medications: *Heparin 5000 units SQ TID *Enoxaparin/Lovenox 40 mg SQ daily (WT < 150 kg, CrCl > 30 mL/min) *Enoxaparin/Lovenox 30 mg SQ daily (WT < 150 kg, CrCl > 10-29 mL/min) *Enoxaparin/Lovenox 30 mg SQ BID (WT < 150 kg, CrCl > 30 mL/min) AND/OR *Sequential Compression Device (SCD) 5 or more Highest Order ONE of the following medications: *Heparin 5000 units SQ TID (Preferred with Epidurals) *Enoxaparin/Lovenox 40 mg SQ daily (WT < 150 kg, CrCl > 30 mL/min) *Enoxaparin/Lovenox 30 mg SQ daily (WT < 150 kg, CrCl > 10-29 mL/min) *Enoxaparin/Lovenox 30 mg SQ BID (WT < 150 kg, CrCl > 30 mL/min) AND *Sequential Compression Device (SCD) Assessment and Plan Problem List: (1) Hyponatremia ICD Codes: E87.1 - Hypo-osmolality and hyponatremia Status: Acute Plan: IV fluid and recheck labs (2) Hypokalemia ICD Codes: E87.6 - Hypokalemia Status: Acute Plan: potassium replacement and recheck labs (3) Intractable nausea and vomiting ICD Codes: R11.2 - Nausea with vomiting, unspecified Status: Acute Plan: possibly related to chemo drugs just started them this week will consult oncology (4) Mass of left axilla ICD Codes: R22.32 - Localized swelling, mass and lump, left upper limb Status: Chronic Plan: will consult oncology ultrasound shows no new changes (5) Breast CA ICD Codes: C50.919 - Malignant neoplasm of unspecified site of unspecified female breast Status: Chronic Plan: will consult oncology Assessment and Plan further plan as case develops and recheck of labs Code Status full Discussed Condition With patient Problem Qualifiers (1) Intractable nausea and vomiting: Qualified Codes: R11.2 - Nausea with vomiting, unspecified Irwin Jordan MD Jul 10, 2017 22:27
[2017-07-10] MEDS: SODIUM CHLOR 0.9% 1000 ML INJ 1,000 ML IV SCH (23:06)
[2017-07-11] VITALS (7 sets, daily range): BP systolic 143–186; BP diastolic 68–89; PULSE 69–89; RESP 16–18; TEMP 98.2–98.7; O2SAT 94–96
[2017-07-11] MEDS ORDERED: ACETAMINOPHEN 325 MG TAB PO PRN (04:15)
[2017-07-11] MEDS: POTASSIUM CHLOR 20 MEQ PREMIX 100 ML IV SCH (04:19)
[2017-07-11] MEDS: HYDROCHLOROTHIAZIDE 12.5 MG CAP PO SCH (08:33)
[2017-07-11] MEDS: LOSARTAN 50 MG TAB PO SCH (08:33)
[2017-07-11] MEDS: DOCUSATE SODIUM 50 MG/SENNA 8.6 MG TAB PO SCH ×2 (08:34→20:21)
[2017-07-11] MEDS: SODIUM CHLORIDE 0.9% FLUSH 10 ML FLUSH IV FLUSH SCH ×2 (08:34→20:21)
[2017-07-11] MEDS: SODIUM CHLOR 0.9% 1000 ML INJ 1,000 ML IV SCH (09:09)
[2017-07-11] MEDS: RIVAROXABAN 20 MG TAB PO SCH (09:10)
--- NOTE | 2017-07-11 12:05 | MB ---
cc: MICHELLE MORALES M.D. DATE OF CONSULTATION: 07/11/2017. REASON FOR CONSULTATION: Oncology was consulted to render opinion regarding a patient with metastatic breast cancer admitted with dehydration and swelling of the left upper extremity. ATTENDING PHYSICIAN: Dr. Jordan. HISTORY OF PRESENT ILLNESS: The patient is a very pleasant 81-year-old female with a long history of metastatic breast cancer who presented to the hospital with complaints of left arm numbness and swelling since yesterday afternoon. She just received her first cycle of cisplatin with a clinical trial drug on Wednesday. Since then, she has not been feeling well. She has had a lot of dry heaves. She has decreased oral intake and has lost about five pounds. She is able to drink water. She called me yesterday with the above complaints and was directed to the emergency room. She denies any fever, chills or night sweats. Denies any chest pain. Denies any shortness of breath or cough. She denies abdominal pain. She had constipation but that is controlled. Denies any bone pain. Denies any change in urinary habits. PAST MEDICAL HISTORY: 1. Metastatic breast cancer. 2. Hypertension. 3. Deep venous thrombosis left upper extremity. 4. Cellulitis. PAST SURGICAL HISTORY: 1. Appendectomy. 2. Lumpectomy. 3. Mastectomy. 4. Tonsillectomy. 5. Port placement. 6. Hysterectomy. SOCIAL HISTORY: Remote history of tobacco use. She drinks occasionally. FAMILY HISTORY: She has two sisters with some sort of malignancy. No family history of thromboembolic event. ALLERGIES: 1. ACETAMINOPHEN. 2. MEPERIDINE. 3. MORPHINE. 4. OXYCODONE. CURRENT MEDICATIONS: 1. Hydrochlorothiazide. 2. Cozaar. 3. Xarelto. REVIEW OF SYSTEMS: CONSTITUTIONAL: As above. EYES: Negative. ENT: Negative. CARDIOVASCULAR: Denies any chest pressure or palpitations. RESPIRATORY: Denies any shortness of breath or cough. GI: As above. : Negative. MUSCULOSKELETAL: As above. ENDOCRINE: Negative. HEMATOLOGIC: Negative. DERMATOLOGIC: Negative. PSYCHIATRIC: A little anxious. NEUROLOGIC: Negative. PHYSICAL EXAMINATION: VITAL SIGNS: Temperature 98.4, blood pressure 186/82, 02 saturation 96% on room air. GENERAL: She is alert and oriented times three and in no acute distress. HEAD, EYES, EARS, NOSE, THROAT: Atraumatic, normocephalic. Pupils equal, round, reactive to light. Extraocular muscles are intact. No scleral icterus. OROPHARYNX: Dry mucosa. No lesions. No thrush. No mucositis. NECK: No thyromegaly. No palpable mass. LYMPHATIC: No palpable cervical, clavicular, axillary or inguinal lymph nodes. CARDIOVASCULAR: Regular S1-S2. No murmur. LUNGS: Clear to auscultation bilaterally. ABDOMEN: Abdomen soft and nontender. I could not palpate the liver or spleen. EXTREMITIES: She is a little tender in the left axillary area. I could not palpate any mass. I do not see significant edema of the left upper extremity. NEUROLOGIC EXAM: Nonfocal. LABORATORY DATA: Hemoglobin 11.2. Creatinine 0.97. ALT 61. ASSESSMENT: 1. Metastatic breast cancer. She was first diagnosed with left breast cancer in 2001 and underwent lumpectomy. She had a stage I hormone receptor positive tumor. She was on endocrine therapy under clinical trial until 2008. In 2011, she developed recurrent disease in the left breast and underwent mastectomy. It was a triple negative tumor. She was again treated and did well. In February of 2016, she developed left upper extremity deep venous thrombosis. A workup showed a left axillary mass. She was given carboplatin and Taxol with poor tolerance. She then received radiation with concurrent Xeloda. She unfortunately developed progression of disease. She was just started on cisplatin with clinical trial drug (velaparib) versus a placebo. She received the first dose on Wednesday, and since then she has not been feeling well. She has had nausea, dry heaves, weakness and taste changes. I think all these are due to cisplatin. It is too early to assess response at this time. 2. Left upper extremity swelling and numbness. She had ultrasound of the left upper extremity again showing left axillary mass with occlusion of the axillary vein and lower internal jugular vein. I think the numbness is likely due to cisplatin. The swelling is most likely due to the chronic deep venous thrombosis and the left axillary mass. She has been on Xarelto. This morning her swelling has resolved. I doubt that she has failed Xarelto. Will continue her on Xarelto for now. 3. Dehydration. She has decreased oral intake since the chemotherapy on Wednesday. She was started on IV fluids and she feels better this morning. 4. Hypertension. Stable. RECOMMENDATIONS: 1. Continue Xarelto. 2. Continue IV fluid hydration. 3. Continue to replace electrolytes. 4. She possibly could be discharged tomorrow if her symptoms continue to improve. Thank you, Dr. Jordan, for asking me to see this patient. MD MANPREET José/JCMark /10:57 AM /11:46 AM JAVIER
--- NOTE | 2017-07-11 15:33 | HHI.PR ---
Subjective Remarks pain improved at LUE Objective Vitals Vital Signs Date Time Temp Pulse Resp B/P (MAP) Pulse Ox O2 Delivery O2 Flow Rate FiO2 07/11/17 12:00 98.6 80 16 177/89 (118) 95 07/11/17 08:00 98.4 77 16 186/82 (116) 96 07/11/17 04:00 98.5 78 18 143/68 (93) 94 07/11/17 04:00 98.5 78 18 143/68 (93) 94 07/11/17 00:00 98.2 89 18 145/69 (94) 95 07/10/17 22:49 07/10/17 20:37 100 18 153/74 (100) 97 07/10/17 19:17 89 18 156/72 (100) 97 07/10/17 18:35 16 98 Room Air 07/10/17 16:29 96 Room Air 07/10/17 16:14 97.7 65 15 225/102 (143) 97 07/11/17 07/11/17 07/12/17 15:00 23:00 07:00 Intake Total 1100 ml Balance 1100 ml Intake IV Total 1100 ml Result Diagram: 07/10/17 1815 07/10/17 1815 Imaging Last 24 hours Impressions Upper Extremity Ultrasound 07/10/17 0000 Signed Impressions: Service Date/Time: Monday, July 10, 2017 17:45 - CONCLUSION: 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 Jose Manuel Rodriguez MD Objective Remarks GENERAL: This is a well-nourished, well-developed patient, in no apparent distress. CARDIOVASCULAR: Regular rate and rhythm without murmurs, gallops, or rubs. RESPIRATORY: Clear to auscultation. Breath sounds equal bilaterally. No wheezes , rales, or rhonchi. GASTROINTESTINAL: Abdomen soft, non-tender, nondistended. Normal active bowel sounds MUSCULOSKELETAL: Extremities without clubbing, cyanosis, or edema. NEURO: Alert & Oriented x4 to person, place, time, situation. Moves all ext x4 A/P Problem List: (1) Hyponatremia ICD Codes: E87.1 - Hypo-osmolality and hyponatremia Status: Acute Plan: - continue IVFs - await repeat BMP - BMP ordered for 6AM was NOT done I have asked the nursing staff to draw the pt's blood and send samples to the lab STAT - anticipate d/c in next 1-2 days (2) Hypokalemia ICD Codes: E87.6 - Hypokalemia Status: Acute Plan: - see above (3) Intractable nausea and vomiting ICD Codes: R11.2 - Nausea with vomiting, unspecified Status: Acute Plan: - d/t new chemo regimen - IVFs - zofran prn (4) Mass of left axilla ICD Codes: R22.32 - Localized swelling, mass and lump, left upper limb Status: Chronic Plan: - US lue (07/10) - left axillary mass - LUE DVT - comgmt with Oncology - continue xarelto (5) Breast CA ICD Codes: C50.919 - Malignant neoplasm of unspecified site of unspecified female breast Status: Chronic Plan: - mgmt per Oncology (6) Head ache ICD Codes: R51 - Headache Status: Acute Plan: - possibly d/t elevated BP - pt has multiple narcotic allergies - NO relief with tylenol - trial of compazine. Compazine helped in ER Problem Qualifiers (1) Intractable nausea and vomiting: Qualified Codes: R11.2 - Nausea with vomiting, unspecified (2) Head ache: Qualified Codes: R51 - Headache Luis Marcelino DO Jul 11, 2017 15:32
[2017-07-11] MEDS ORDERED: cloNIDine HCL 0.2 MG TAB PO PRN (15:45)
[2017-07-11] MEDS ORDERED: ENALAPRILAT 1.25 MG/ML VIAL IV PRN (15:45)
[2017-07-11] MEDS: NIFEdipine 60 MG SUSTAINED RELEASE TAB PO SCH (15:59)
[2017-07-11] MEDS ORDERED: PROCHLORPERAZINE INJ 10 MG/2 ML VIAL IV PUSH ONE (16:00)
[2017-07-11 16:01] LABS: AUTOMATED NEUTROPHIL # 4.1 TH/MM3 (1.8-7.7); BASOPHIL % 0.2 % (0.0-2.0); EOSINOPHIL % 0.1 % (0.0-4.0); HEMATOCRIT 29.6 % (35.0-46.0); HEMO FLAGS DIFF FINAL; LYMPH % 14.7 % (9.0-44.0); LYMPHOCYTE # 0.8 TH/MM3 (1.0-4.8); MEAN CELL VOLUME 97.6 FL (80.0-100.0); MEAN CORPUSCULAR HEMOGLOBIN 34.5 PG (27.0-34.0); MEAN CORPUSCULAR HGB CONC 35.3 % (32.0-36.0); PLATELET COUNT 238 TH/MM3 (150-450); RED BLOOD COUNT 3.04 MIL/MM3 (4.00-5.30); WHITE BLOOD COUNT 5.6 TH/MM3 (4.0-11.0)
[2017-07-11] MEDS: NS + KCL 20 MEQ INJ 1,000 ML IV SCH (16:03)
[2017-07-11 16:24] LABS: BICARBONATE 30.8 MEQ/L (21.0-32.0)
[2017-07-11 16:28] LABS: POTASSIUM 2.4 MEQ/L (3.5-5.1)
[2017-07-11] MEDS: POTASSIUM CHLORIDE 20 MEQ CONTROLLED RELEASE TAB PO SCH ×2 (16:47→20:21)
[2017-07-12] VITALS: BP 137/63; PULSE 74; RESP 18; TEMP 97.7; O2SAT 93
[2017-07-12] MEDS: NS + KCL 20 MEQ INJ 1,000 ML IV SCH ×2 (03:46→05:10)
[2017-07-12 04:00] VITALS: BP 147/68; PULSE 77; RESP 18; TEMP 98.6; O2SAT 96
[2017-07-12 07:34] LABS: AUTOMATED NEUTROPHIL # 2.6 TH/MM3 (1.8-7.7); BASOPHIL % 0.2 % (0.0-2.0); EOSINOPHIL % 0.7 % (0.0-4.0); HEMATOCRIT 27.7 % (35.0-46.0); HEMO FLAGS DIFF FINAL; LYMPH % 18.4 % (9.0-44.0); LYMPHOCYTE # 0.7 TH/MM3 (1.0-4.8); MEAN CELL VOLUME 98.2 FL (80.0-100.0); MEAN CORPUSCULAR HEMOGLOBIN 34.2 PG (27.0-34.0); MEAN CORPUSCULAR HGB CONC 34.8 % (32.0-36.0); MONO % 11.2 % (0.0-8.0); NEUT % 69.5 % (16.0-70.0); PLATELET COUNT 218 TH/MM3 (150-450); RED BLOOD COUNT 2.82 MIL/MM3 (4.00-5.30); RED CELL DISTRIBUTION WIDTH 13.2 % (11.6-17.2); WHITE BLOOD COUNT 3.7 TH/MM3 (4.0-11.0)
[2017-07-12 08:00] VITALS: BP_SYST 140; BP_SYST 176; BP_DIAS 83; BP_DIAS 87; PULSE 82; RESP 20; TEMP 99; O2SAT 98
[2017-07-12 08:03] LABS: BICARBONATE 29.3 MEQ/L (21.0-32.0); POTASSIUM 3.7 MEQ/L (3.5-5.1)
[2017-07-12] MEDS: NIFEdipine 60 MG SUSTAINED RELEASE TAB PO SCH (08:08)
[2017-07-12] MEDS: DOCUSATE SODIUM 50 MG/SENNA 8.6 MG TAB PO SCH (08:09)
[2017-07-12] MEDS: HYDROCHLOROTHIAZIDE 12.5 MG CAP PO SCH (08:09)
[2017-07-12] MEDS: SODIUM CHLORIDE 0.9% FLUSH 10 ML FLUSH IV FLUSH SCH (08:09)
[2017-07-12] MEDS: LOSARTAN 50 MG TAB PO SCH (08:09)
[2017-07-12] MEDS: RIVAROXABAN 20 MG TAB PO SCH (09:05)
[2017-07-12 12:00] VITALS: BP 148/71; PULSE 85; RESP 19; TEMP 99; O2SAT 96
--- NOTE | 2017-07-12 12:32 | PD.ONC.PN ---
Subjective Subjective Remarks Afebrile overnight. Feeling much improved today. Tolerated breakfast this AM. No further nausea or vomiting. Eager to go home. Objective Data Date Time Temp Pulse Resp B/P (MAP) Pulse Ox O2 Delivery O2 Flow Rate FiO2 07/12/17 08:00 99.0 82 20 176/83 (114) 98 07/12/17 04:00 98.6 77 18 147/68 (94) 96 07/12/17 00:00 97.7 74 18 137/63 (87) 93 07/11/17 20:00 98.4 80 18 155/74 (101) 96 07/11/17 16:54 69 16 169/81 (110) 07/11/17 16:00 98.7 78 16 95 Result Diagram: 07/12/17 0649 07/12/17 0649 Laboratory Results Laboratory Tests Test 07/11/17 15:43 07/12/17 06:49 White Blood Count 5.6 TH/MM3 3.7 TH/MM3 Red Blood Count 3.04 MIL/MM3 2.82 MIL/MM3 Hemoglobin 10.5 GM/DL 9.6 GM/DL Hematocrit 29.6 % 27.7 % Mean Corpuscular Volume 97.6 FL 98.2 FL Mean Corpuscular Hemoglobin 34.5 PG 34.2 PG Mean Corpuscular Hemoglobin Concent 35.3 % 34.8 % Red Cell Distribution Width 13.0 % 13.2 % Platelet Count 238 TH/MM3 218 TH/MM3 Mean Platelet Volume 7.8 FL 7.7 FL Neutrophils (%) (Auto) 73.0 % 69.5 % Lymphocytes (%) (Auto) 14.7 % 18.4 % Monocytes (%) (Auto) 12.0 % 11.2 % Eosinophils (%) (Auto) 0.1 % 0.7 % Basophils (%) (Auto) 0.2 % 0.2 % Neutrophils # (Auto) 4.1 TH/MM3 2.6 TH/MM3 Lymphocytes # (Auto) 0.8 TH/MM3 0.7 TH/MM3 Monocytes # (Auto) 0.7 TH/MM3 0.4 TH/MM3 Eosinophils # (Auto) 0.0 TH/MM3 0.0 TH/MM3 Basophils # (Auto) 0.0 TH/MM3 0.0 TH/MM3 CBC Comment DIFF FINAL DIFF FINAL Differential Comment Blood Urea Nitrogen 16 MG/DL 17 MG/DL Creatinine 0.85 MG/DL 0.75 MG/DL Random Glucose 96 MG/DL 91 MG/DL Calcium Level 8.0 MG/DL 8.0 MG/DL Sodium Level 130 MEQ/L 135 MEQ/L Potassium Level 2.4 MEQ/L 3.7 MEQ/L Chloride Level 94 MEQ/L 100 MEQ/L Carbon Dioxide Level 30.8 MEQ/L 29.3 MEQ/L Anion Gap 5 MEQ/L 6 MEQ/L Estimat Glomerular Filtration Rate 65 ML/MIN 75 ML/MIN Administered Medications Medications (Trade) Dose Ordered Sig/Leslie Route PRN Reason Start Time Stop Time Status Last Admin Dose Admin Hydrochlorothiazide (Microzide) 12.5 mg DAILY PO 07/11/17 09:00 07/12/17 08:09 Losartan Potassium (Cozaar) 100 mg DAILY PO 07/11/17 09:00 07/12/17 08:09 Rivaroxaban (Xarelto) 20 mg DAILY PO 07/11/17 09:00 07/12/17 09:05 Ondansetron HCl (Zofran Inj) 4 mg Q6H PRN IVP NAUSEA OR VOMITING 07/10/17 22:00 07/11/17 09:09 Senna/Docusate Sodium (Nina-Colace) 1 tab BID PO 07/11/17 09:00 07/12/17 08:09 Enalaprilat (Vasotec Inj) 1.25 mg Q6H PRN IV PUSH SBP> OR = 180, DBP> OR = 100 07/10/17 22:15 07/10/17 23:21 Acetaminophen (Tylenol) 650 mg Q6H PRN PO PAIN SCALE 1 TO 5 07/11/17 04:15 07/11/17 04:19 Nifedipine (Procardia Xl) 60 mg DAILY PO 07/11/17 16:00 07/12/17 08:08 Potassium Chloride/Sodium Chloride 1,000 ml @ 85 mls/hr [id number] IV 07/11/17 16:00 07/12/17 05:10 Objective Remarks GENERAL: Pleasant female sitting up in bed in [facility]. SKIN: Warm and dry. HEAD: Normocephalic. EYES: No injection or drainage. NECK: Supple, trachea midline. CARDIOVASCULAR: Regular rate and rhythm RESPIRATORY: Breath sounds equal bilaterally. No accessory muscle use. GASTROINTESTINAL: Abdomen soft, non-tender, nondistended. EXTREMITIES: No cyanosis NEUROLOGICAL: awake and alert, normal speech. moving extremities. Assessment/Plan Problem List: (1) Metastatic breast cancer ICD Codes: C50.919 - Malignant neoplasm of unspecified site of unspecified female breast Plan: --currently on clinical trial drug + cisplatin--received first dose Wednesday last week. History of Cancer: first diagnosed with left breast cancer in 2001 and underwent lumpectomy. had a stage I hormone receptor positive tumor. --was on endocrine therapy under clinical trial until 2008. --2011, she developed recurrent disease in the left breast and underwent mastectomy. was a triple negative tumor. was again treated and did well. --February of 2016, she developed left upper extremity deep venous thrombosis. A workup showed a left axillary mass. She was given carboplatin and Taxol with poor tolerance. She then received radiation with concurrent Xeloda. She unfortunately developed progression of disease. She was just started on cisplatin with clinical trial drug (velaparib) versus a placebo. She received the first dose on Wednesday, and since then she has not been feeling well. She has had nausea, dry heaves, weakness and taste changes. I think all these are due to cisplatin. It is too early to assess response at this time. (2) Left upper extremity swelling ICD Codes: M79.89 - Other specified soft tissue disorders Plan: --Left upper extremity swelling and numbness. --U/S, LUE: showed left axillary mass with occlusion of the axillary vein and lower internal jugular vein. --numbness is likely due to cisplatin. --swelling is most likely due to the chronic deep venous thrombosis and the left axillary mass. --has been on Xarelto. swelling has resolved. doubt that she has failed Xarelto. Will continue her on Xarelto for now. Assessment 81y/o female with metastatic breast cancer admitted with dehydration and swelling of the left upper extremity. --just received her first cycle of cisplatin with a clinical trial drug on Wednesday. Since then, she has not been feeling well. h/o Metastatic breast cancer. Hypertension. Deep venous thrombosis left upper extremity. Cellulitis. Plan 1. continue supportive care 2. once discharged follow up in clinic with Dr. Grove. Attending Statement Pt DC home before could be seen. Discussed above. Reviewed with credit coordinator, continue to hold study drug until hospital fu appt this at 2pm. Jeanine Bright Jul 12, 2017 12:32 Mary Grove MD Jul 13, 2017 18:15
--- NOTE | 2017-07-12 14:40 | HHI.PR ---
Subjective Remarks Headache is better today Swelling has improved Pt tolerating oral intake she is wanting to go home today Objective Vitals Vital Signs Date Time Temp Pulse Resp B/P (MAP) Pulse Ox O2 Delivery O2 Flow Rate FiO2 07/12/17 12:00 99.0 85 19 148/71 (96) 96 07/12/17 08:00 99.0 82 20 176/83 (114) 98 07/12/17 04:00 98.6 77 18 147/68 (94) 96 07/12/17 00:00 97.7 74 18 137/63 (87) 93 07/11/17 20:00 98.4 80 18 155/74 (101) 96 07/11/17 16:54 69 16 169/81 (110) 07/11/17 16:00 98.7 78 16 95 Result Diagram: 07/12/17 0649 07/12/17 0649 Other Results Laboratory Tests Test 07/10/17 18:15 07/11/17 15:43 07/12/17 06:49 White Blood Count 7.4 TH/MM3 5.6 TH/MM3 3.7 TH/MM3 Red Blood Count 3.25 MIL/MM3 3.04 MIL/MM3 2.82 MIL/MM3 Hemoglobin 11.2 GM/DL 10.5 GM/DL 9.6 GM/DL Hematocrit 31.6 % 29.6 % 27.7 % Mean Corpuscular Volume 97.3 FL 97.6 FL 98.2 FL Mean Corpuscular Hemoglobin 34.4 PG 34.5 PG 34.2 PG Mean Corpuscular Hemoglobin Concent 35.4 % 35.3 % 34.8 % Red Cell Distribution Width 13.1 % 13.0 % 13.2 % Platelet Count 266 TH/MM3 238 TH/MM3 218 TH/MM3 Mean Platelet Volume 7.7 FL 7.8 FL 7.7 FL Neutrophils (%) (Auto) 85.6 % 73.0 % 69.5 % Lymphocytes (%) (Auto) 6.4 % 14.7 % 18.4 % Monocytes (%) (Auto) 7.9 % 12.0 % 11.2 % Eosinophils (%) (Auto) 0.0 % 0.1 % 0.7 % Basophils (%) (Auto) 0.1 % 0.2 % 0.2 % Neutrophils # (Auto) 6.3 TH/MM3 4.1 TH/MM3 2.6 TH/MM3 Lymphocytes # (Auto) 0.5 TH/MM3 0.8 TH/MM3 0.7 TH/MM3 Monocytes # (Auto) 0.6 TH/MM3 0.7 TH/MM3 0.4 TH/MM3 Eosinophils # (Auto) 0.0 TH/MM3 0.0 TH/MM3 0.0 TH/MM3 Basophils # (Auto) 0.0 TH/MM3 0.0 TH/MM3 0.0 TH/MM3 CBC Comment DIFF FINAL DIFF FINAL DIFF FINAL Differential Comment Blood Urea Nitrogen 17 MG/DL 16 MG/DL 17 MG/DL Creatinine 0.97 MG/DL 0.85 MG/DL 0.75 MG/DL Random Glucose 118 MG/DL 96 MG/DL 91 MG/DL Total Protein 8.1 GM/DL Albumin 3.2 GM/DL Calcium Level 8.8 MG/DL 8.0 MG/DL 8.0 MG/DL Alkaline Phosphatase 105 U/L Aspartate Amino Transf (AST/SGOT) 35 U/L Alanine Aminotransferase (ALT/SGPT) 61 U/L Total Bilirubin 0.6 MG/DL Sodium Level 125 MEQ/L 130 MEQ/L 135 MEQ/L Potassium Level 2.4 MEQ/L 2.4 MEQ/L 3.7 MEQ/L Chloride Level 86 MEQ/L 94 MEQ/L 100 MEQ/L Carbon Dioxide Level 30.6 MEQ/L 30.8 MEQ/L 29.3 MEQ/L Anion Gap 8 MEQ/L 5 MEQ/L 6 MEQ/L Estimat Glomerular Filtration Rate 55 ML/MIN 65 ML/MIN 75 ML/MIN Lipase 193 U/L Imaging Last 24 hours Impressions Upper Extremity Ultrasound 07/10/17 0000 Signed Impressions: Service Date/Time: Monday, July 10, 2017 17:45 - CONCLUSION: 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 Jose Manuel Rodriguez MD Objective Remarks General: NAD, AAOx3 Chest: CTA Cardiac: Regular Abd: +BS, soft ND/NT Ext: No edema A/P Problem List: (1) Hyponatremia ICD Codes: E87.1 - Hypo-osmolality and hyponatremia Status: Acute Plan: - Pt is a 81 y/o female with recurrent metastatic breast cancer. She was first diagnosed with left breast cancer in 2001 and underwent lumpectomy. In 2011 she had recent disease in the left breast and underwent mastectomy. In February of 2016, she developed left upper extremity deep venous thrombosis and workup showed a left axillary mass which was found to be consistent with poorly differentiated carcinoma of the breast. She was given carboplatin and Taxol with poor tolerance. She then received radiation with concurrent Xeloda. She developed progression of disease and was recently started on cisplatin with clinical trial drug (velaparib) vs. a placebo. She received the first dose on Wednesday, and since then has had nausea and vomiting - Labs at admission revealed significant hyponatremia and hypokalemia - Pt was treated with IVF and electrolyte replacement. - Repeat labs on 07/11 noted improvement in her Na+ to 130 but K+ was still 2.4 - She received continued oral replacement of the potassium - Repeat labs on 07/12 with K+ 3.7 and Na+ 135 - Pt is tolerating oral intake - She is anxious for discharge to home. - Pt will need to followup with her Oncologist, Dr. Grove, within 1 week of discharge. (2) Hypokalemia ICD Codes: E87.6 - Hypokalemia Status: Acute Plan: - see above (3) Intractable nausea and vomiting ICD Codes: R11.2 - Nausea with vomiting, unspecified Status: Acute Plan: - Likely d/t new chemo regimen - IVFs - zofran prn (4) Mass of left axilla ICD Codes: R22.32 - Localized swelling, mass and lump, left upper limb Status: Chronic Plan: - US LUE (07/10) -->showed left axillary mass with occlusion of the axillary vein and lower internal jugular vein. - Appreciate Oncology input - It is felt that the LUE numbness is likely due to cisplatin and swelling is most likely due to the chronic DVT and the left axillary mass. - The pt has been on Xarelto. - Today her swelling has resolved. It is felt to be unlikely that she has failed Xarelto per the Oncology notes. - She will continue on Xarelto for now. - She will need followup with Dr. Grove within 1 week following discharge (5) Breast CA ICD Codes: C50.919 - Malignant neoplasm of unspecified site of unspecified female breast Status: Chronic Plan: - mgmt per Oncology (6) Hypertension, benign ICD Codes: I10 - Essential (primary) hypertension Status: Chronic Plan: - Pt was continued on home meds of Losartan and HCTZ but BP was still elevated during admission - She was also started Procardia XL 60mg po daily and BP is better controlled today - She will be continued on the Procardia XL 60mg po daily at home - She will need to followup with her PCP, Dr. Chapa, in 1 week. (7) Head ache ICD Codes: R51 - Headache Status: Acute Plan: - possibly d/t elevated BP - pt has multiple narcotic allergies - NO relief with Tylenol - Pt was given trial of Compazine on 07/11 . Compazine helped in ER Problem Qualifiers (1) Intractable nausea and vomiting: Qualified Codes: R11.2 - Nausea with vomiting, unspecified (2) Head ache: Qualified Codes: R51 - Headache Khushi Lester Jul 12, 2017 14:40
[2017-07-12] MEDS ORDERED: NIFE60TA8 PO (14:49)
--- NOTE | 2017-07-12 14:54 | HHI.DCPOC ---
Discharge Care Plan Diagnosis: (1) Left upper extremity swelling (2) Hyponatremia (3) Hypokalemia (4) Hypertension, benign (5) Metastatic breast cancer (6) Mass of left axilla (7) Head ache Goals to Promote Your Health - New Medications: - Procardia XL 60mg once daily (for blood pressure control) - Monitor your blood pressure at home, once or twice a day at varying times during the day and record these values to give to your primary care physician, Dr. Chapa, at your followup appt with her - You need to followup with Dr. Chapa in 1 week, call for an appt - You need to followup with Dr. Grove in 1 week, call for an appt. Directions to Meet Your Goals Take your medications as prescribed Follow your dietary instruction Follow activity as directed Keep your appointments as scheduled Take your immunizations and boosters as scheduled If your symptoms worsen call your PCP, if no PCP go to Urgent Care Center or Emergency Room Smoking is Dangerous to Your Health. Avoid second hand smoke Call the 24-hour hour crisis hotline for domestic abuse at Khushi Lester Jul 12, 2017 14:53
[2017-07-12 16:00] VITALS: BP 150/76; PULSE 82; RESP 16; TEMP 99; O2SAT 97
== END 2017-07-12 18:54 | disposition home or self-care (01) | DRG 300 ==
LOC: NEPE 16:11 → NEDA 20:16 → N05B 22:46 → OBSVTOIN 07-12 09:25
PROVIDERS: ADMIT Hospitalist; ATTEND Hospitalist
DX: I82.622 Acute embolism and thrombosis of deep veins of left upper extremity (principal); E87.1 Hypo-osmolality and hyponatremia; E86.0 Dehydration; L03.90 Cellulitis, unspecified; E87.6 Hypokalemia; I10 Essential (primary) hypertension; K59.00 Constipation, unspecified; Z79.01 Long term (current) use of anticoagulants; Z85.3 Personal history of malignant neoplasm of breast; Z87.891 Personal history of nicotine dependence; R11.2 Nausea with vomiting, unspecified; R51 Headache
CPT/HCPCS: 80048; 80053; 83690; 85025; 93971; C9113; J0360; J0780; J1200; J2405; J3480; J7030

== ENCOUNTER 2017-08-05 13:31 | Inpatient (IN) | payer MEDICARE ==
[~2017-08-05 13:31] MED LIST changes: +NIFE60TA8 PO
[2017-08-05] MEDS ORDERED: ONDANSETRON HCL 4 MG/2 ML VIAL IV PUSH PRN (17:00)
[2017-08-05] MEDS: NS + KCL 20 MEQ INJ 1,000 ML IV SCH (17:00)
--- NOTE | 2017-08-05 17:01 | HHI.HP ---
HPI Service CP Hospitalists Primary Care Physician Unknown Admission Diagnosis Chief Complaint: n/v History of Present Illness Pt is 81 yo with recurrent metastatic breast ca, initially diagnosed in 2011. Admitted for intractable chemotherapy induced n/v. Attempts were made in oncology clinic for over 4 hrs but pt required admission. She is on cisplatin and a study drug. She denies abdomen pain or diarrhea. Denies any fever or chills. She is on anticoagulation for dvt found last admission. Review of Systems Other n/v Past Family Social History Past Medical History recurrent metastatic breast ca...first diagnosed with left breast cancer in 2001 and underwent lumpectomy. In 2011 recurrentce in left breast and underwent mastectomy. In February of 2016, she developed left upper extremity deep venous thrombosis and workup showed a left axillary mass which was found to be consistent with poorly differentiated carcinoma of the breast. She was given carboplatin and Taxol with poor tolerance. She then received radiation with concurrent Xeloda. She developed progression of disease and was recently started on cisplatin with clinical trial drug (velaparib) vs. a placebo. US LUE (07/10) -->showed left axillary mass with occlusion of the axillary vein and lower internal jugular vein. LUE numbness is likely due to cisplatin and swelling is most likely due to the chronic DVT and the left axillary mass. HTN appe port placement partial hysterectomy mastectomy Reported Medications losartan 100mg daily procardia xl 60mg daily xarelto 20mg daily Allergies: Coded Allergies: meperidine (Verified Allergy, Severe, Irritability/Anxiety, 08/05/17) morphine (Verified Allergy, Severe, Irritability/Anxiety, 08/05/17) oxycodone (Verified Allergy, Severe, ANXIETY, 08/05/17) Family History nc Social History on etoh/tob Physical Exam Vital Signs heart reg lung cta abd s/nt ext mild lue edema right chest port Caprini VTE Risk Assessment Caprini Risk Assessment Model Point Value = 1 Point Value = 2 Point Value = 3 Point Value = 5 Age 41-60 Minor surgery BMI > 25 kg/m2 Swollen legs Varicose veins or History of unexplained or recurrent spontaneous Oral contraceptives or hormone replacement Sepsis (< 1 month) Serious lung disease, including pneumonia (< 1 month) Abnormal pulmonary function Acute myocardial infarction Congestive heart failure (< 1 month) History of inflammatory bowel disease Medical patient at bed rest Age 61-74 Arthroscopic surgery Major open surgery (> 45 min) Laparoscopic surgery (> 45 min) Malignancy Confined to bed (> 72 hours) Immobilizing plaster cast Central venous access Age >= 75 History of VTE Family history of VTE Factor V Leiden Prothrombin [id number] Lupus anticoagulant Anticardiolipin antibodies Elevated serum homocysteine Heparin-induced thrombocytopenia Other congenital or acquired thrombophilia Stroke (< 1 month) Elective arthroplasty Hip, pelvis, or leg fracture Acute spinal cord injury (< 1 month) Prophylaxis Regimen Total Risk Factor Score Risk Level Prophylaxis Regimen 0-1 Low Early ambulation 2 Moderate Order ONE of the following: *Sequential Compression Device (SCD) *Heparin 5000 units SQ BID 3-4 Higher Order ONE of the following medications: *Heparin 5000 units SQ TID *Enoxaparin/Lovenox 40 mg SQ daily (WT < 150 kg, CrCl > 30 mL/min) *Enoxaparin/Lovenox 30 mg SQ daily (WT < 150 kg, CrCl > 10-29 mL/min) *Enoxaparin/Lovenox 30 mg SQ BID (WT < 150 kg, CrCl > 30 mL/min) AND/OR *Sequential Compression Device (SCD) 5 or more Highest Order ONE of the following medications: *Heparin 5000 units SQ TID (Preferred with Epidurals) *Enoxaparin/Lovenox 40 mg SQ daily (WT < 150 kg, CrCl > 30 mL/min) *Enoxaparin/Lovenox 30 mg SQ daily (WT < 150 kg, CrCl > 10-29 mL/min) *Enoxaparin/Lovenox 30 mg SQ BID (WT < 150 kg, CrCl > 30 mL/min) AND *Sequential Compression Device (SCD) Assessment and Plan Problem List: (1) Chemotherapy induced nausea and vomiting ICD Codes: R11.2 - Nausea with vomiting, unspecified; T45.1X5A - Adverse effect of antineoplastic and immunosuppressive drugs, initial encounter Status: Acute Plan: 1. metastatic breast ca. undergoing chemo with cisplatin/plus study drug presents with intractable n/v felt related to cisplatin 2. left arm dvt 3. htn plan discussed with Dr Grove ivf overnight liquid diet advance as tolerated prn antiemetics. iv ppi resume bp meds in AM cont xarelto for dvt (2) Metastatic breast cancer ICD Codes: C50.919 - Malignant neoplasm of unspecified site of unspecified female breast Status: Acute (3) Hypertension, benign ICD Codes: I10 - Essential (primary) hypertension Status: Chronic (4) DVT (deep venous thrombosis) ICD Codes: I82.409 - Acute embolism and thrombosis of unspecified deep veins of unspecified lower extremity Status: Chronic Physician Certification 2 Midnight Certification Type: Admission for Inpatient Services Order for Inpatient Services 3The services are ordered in accordance with Medicare regulations or non- Medicare payer requirements, as applicable. In the case of services not specified as inpatient-only, they are appropriately provided as inpatient services in accordance with the 2-midnight benchmark. Estimated LOS (days): 3 3 days is the estimated time the patient will need to remain in the hospital, assuming treatment plan goals are met and no additional complications. Post-Hospital Plan: Home Jaime Gonzalez MD Aug 05, 2017 17:01
[2017-08-05] MEDS ORDERED: ONDANSETRON HCL 4 MG/2 ML VIAL IV PUSH ONE (17:30)
[2017-08-05] MEDS ORDERED: cloNIDine HCL 0.1 MG TAB PO PRN (17:30)
[2017-08-05] MEDS ORDERED: MEPERIDINE HCL 25 MG/ML VIAL IV PUSH PRN (18:15)
[2017-08-05 20:47] VITALS: BP 126/70; PULSE 100; RESP 16; TEMP 98.5; O2SAT 98
[2017-08-05] MEDS: PANTOPRAZOLE SODIUM 40 MG VIAL IV PUSH SCH (20:49)
[2017-08-06] MEDS: NS + KCL 20 MEQ INJ 1,000 ML IV SCH (04:55)
[2017-08-06 05:14] VITALS: BP 163/86; PULSE 103; RESP 18; TEMP 97.9; O2SAT 98
[2017-08-06] MEDS: PANTOPRAZOLE SODIUM 40 MG VIAL IV PUSH SCH (05:21)
[2017-08-06 06:37] LABS: AUTOMATED NEUTROPHIL # 5.2 TH/MM3 (1.8-7.7); BASOPHIL % 0.1 % (0.0-2.0); HEMATOCRIT 27.9 % (35.0-46.0); HEMOGLOBIN 9.6 GM/DL (11.6-15.3); LYMPHOCYTE # 0.9 TH/MM3 (1.0-4.8); MEAN CELL VOLUME 101.6 FL (80.0-100.0); MEAN CORPUSCULAR HEMOGLOBIN 34.9 PG (27.0-34.0); MEAN CORPUSCULAR HGB CONC 34.3 % (32.0-36.0); MEAN PLATELET VOLUME 6.9 FL (7.0-11.0); MONO % 13.4 % (0.0-8.0); NEUT % 73.5 % (16.0-70.0); PLATELET COUNT 411 TH/MM3 (150-450); RED BLOOD COUNT 2.75 MIL/MM3 (4.00-5.30); WHITE BLOOD COUNT 7.1 TH/MM3 (4.0-11.0)
[2017-08-06 07:06] LABS: BICARBONATE 25.3 MEQ/L (21.0-32.0); CALCIUM 8.7 MG/DL (8.5-10.1); CREATININE 0.8 MG/DL (0.50-1.00); MAGNESIUM 2.1 MG/DL (1.5-2.5)
--- NOTE | 2017-08-06 08:26 | HHI.PR ---
Subjective Remarks feels well dwight liquid Objective Vitals heart reg lung cta abd s/nt ext no edema Vital Signs Date Time Temp Pulse Resp B/P (MAP) Pulse Ox O2 Delivery O2 Flow Rate FiO2 08/06/17 05:14 97.9 103 18 163/86 (111) 98 08/05/17 20:47 98.5 100 16 126/70 (88) 98 08/06/17 08/06/17 08/07/17 15:00 23:00 07:00 Intake Total 480 ml Balance 480 ml Intake Oral 480 ml # Voids 3 Result Diagram: 08/06/17 0534 08/06/17 0534 A/P Problem List: (1) Chemotherapy induced nausea and vomiting ICD Codes: R11.2 - Nausea with vomiting, unspecified; T45.1X5A - Adverse effect of antineoplastic and immunosuppressive drugs, initial encounter Status: Acute Plan: 1. metastatic breast ca. undergoing chemo with cisplatin/plus study drug presents with intractable n/v felt related to cisplatin 2. left arm dvt 3. htn plan discussed with Dr Grove ivf given tolerating liquids advance diet and if tolerating then d/c home. prn antiemetics. iv ppi resume bp meds cont xarelto for dvt (2) Metastatic breast cancer ICD Codes: C50.919 - Malignant neoplasm of unspecified site of unspecified female breast Status: Acute (3) Hypertension, benign ICD Codes: I10 - Essential (primary) hypertension Status: Chronic (4) DVT (deep venous thrombosis) ICD Codes: I82.409 - Acute embolism and thrombosis of unspecified deep veins of unspecified lower extremity Status: Chronic Jaime Gonzalez MD Aug 06, 2017 08:26
[2017-08-06 08:29] VITALS: BP 155/86; PULSE 86; RESP 14; TEMP 98.5; O2SAT 100
[2017-08-06] MEDS ORDERED: RIVAROXABAN 20 MG TAB PO SCH (09:00)
[2017-08-06] MEDS ORDERED: NIFEdipine 60 MG SUSTAINED RELEASE TAB PO SCH (09:00)
[2017-08-06] MEDS ORDERED: LOSARTAN 50 MG TAB PO SCH (09:00)
[2017-08-06] MEDS ORDERED: ZOFR4TAB3 SL (12:41)
--- NOTE | 2017-08-06 12:42 | HHI.DCPOC ---
Discharge Care Plan Diagnosis: (1) Metastatic breast cancer (2) Chemotherapy induced nausea and vomiting (3) DVT (deep venous thrombosis) (4) Hypertension, benign Goals to Promote Your Health * To prevent worsening of your condition and complications * To maintain your health at the optimal level Directions to Meet Your Goals Take your medications as prescribed Follow your dietary instruction Follow activity as directed Keep your appointments as scheduled Take your immunizations and boosters as scheduled If your symptoms worsen call your PCP, if no PCP go to Urgent Care Center or Emergency Room Smoking is Dangerous to Your Health. Avoid second hand smoke Call the 24-hour hour crisis hotline for domestic abuse at Jaime Gonzalez MD Aug 06, 2017 12:42
[2017-08-06 13:14] VITALS: BP 179/95; PULSE 93; RESP 16; TEMP 98.5; O2SAT 97
[2017-08-06 13:30] VITALS: BP 159/96
[2017-08-06] MEDS ORDERED: SODIUM CHLORIDE 0.9% FLUSH 10 ML FLUSH IV FLUSH PRN (15:00)
== END 2017-08-06 15:38 | disposition home or self-care (01) | DRG 392 ==
LOC: HCIN 16:50
PROVIDERS: ADMIT Hospitalist; ATTEND Hospitalist
DX: R11.2 Nausea with vomiting, unspecified (principal); C77.3 Secondary and unspecified malignant neoplasm of axilla and upper limb lymph nodes; I82.722 Chronic embolism and thrombosis of deep veins of left upper extremity; I10 Essential (primary) hypertension; T45.1X5A Adverse effect of antineoplastic and immunosuppressive drugs, initial encounter; R20.0 Anesthesia of skin; Z79.01 Long term (current) use of anticoagulants; Z85.3 Personal history of malignant neoplasm of breast
CPT/HCPCS: 36591; 80048; 80053; 83735; 85007; 85025; 85027; 96365; 96366; 96367; 96375; 96413; C9113; J1100; J1453; J1642; J1940; J2405; J2469; J2550; J3475; J3480; J7030; J7040; J9060; Q0164

== ENCOUNTER 2017-12-10 17:42 | Inpatient (IN) | payer MEDICARE ==
[~2017-12-10] VITALS: Ht 160 cm; Wt 53.1 kg
[~2017-12-10 17:42] MED LIST changes: -HYDR12.57 PO; +ZOFR4TAB3 SL
[2017-12-10 17:53] VITALS: BP 104/55; PULSE 111; RESP 24; TEMP 98.2; O2SAT 97
[2017-12-10] MEDS ORDERED: LORA0.5T PO (18:09)
[2017-12-10] MEDS ORDERED: METH10TA PO (18:09)
[2017-12-10] MEDS ORDERED: GABA300C5 PO (18:09)
[2017-12-10] MEDS ORDERED: FENT25DI T-DERMAL (18:09)
[2017-12-10] MEDS ORDERED: VALA1TAB PO (18:09)
--- NOTE | 2017-12-10 18:18 | PD ---
HPI Chief Complaint: Edema Time Seen by Provider: 18:00 Travel History International Travel<30 days: No Contact w/Intl Traveler<30days: No Traveled to known affect area: No History of Present Illness HPI 82-year-old female patient with history of breast cancer currently on radiation and chemotherapy with Dr. Gramajo, who presents to the ER here because she was sent in, has been having worsening left arm swelling, complaining of shortness of breath, patient states for several months. She denies any fevers, chest pains, or other symptoms. Modifying Factors: None Associated Signs & Symptoms: Left arm swelling, shortness of breath Risk Factors: Breast cancer currently on chemotherapy and radiation PFSH Past Medical History Hx Anticoagulant Therapy: Yes (XARELTO) Arthritis: Yes Asthma: No Heart Rhythm Problems: No Cancer: Yes (LEFT BREAST (2)) Cardiovascular Problems: Yes High Cholesterol: No Chemotherapy: Yes Chest Pain: No Congestive Heart Failure: No COPD: No Cerebrovascular Accident: No Diabetes: No Endocrine: No GERD: No Genitourinary: No Headaches: Yes Hiatal Hernia: No Hypertension: Yes Immune Disorder: No Implanted Vascular Access Dvce: Yes (RIGHT CHEST PORT) Kidney Stones: Yes Medical other: Yes (blood clot lt arm) Musculoskeletal: Yes (ARTHRITIS) Neurologic: Yes (MIGRAINES/ LEFT FINGERS NEUROPATHY) Psychiatric: No Reproductive: Yes (HYSTERECTOMY) Respiratory: No Migraines: Yes Renal Failure: No Seizures: No Sleep Apnea: No Thyroid Disease: No Ulcer: No Tetanus Vaccination: Unknown Influenza Vaccination: Yes Past Surgical History Abdominal Surgery: Yes (APPENDECTOMY 1949) AICD: No Appendectomy: Yes Cardiac Surgery: No Ear Surgery: No Endocrine Surgery: No Eye Surgery: No Genitourinary Surgery: No Gynecologic Surgery: Yes ( HYSTERECTOMY 1988) Hysterectomy: Yes Joint Replacement: No Oral Surgery: Yes (TONSILLECTOMY IN 1962/DENTAL IMPLANTS) Pacemaker: No Thoracic Surgery: Yes (LEFT BREAST [id number], LEFT [id number]) Tonsillectomy: Yes Other Surgery: Yes Social History Alcohol Use: No Tobacco Use: No Substance Use: No Allergies-Medications (Allergen,Severity, Reaction): Coded Allergies: meperidine (Verified Allergy, Severe, Irritability/Anxiety, 12/10/17) morphine (Verified Allergy, Severe, Irritability/Anxiety, 12/10/17) oxycodone (Verified Allergy, Severe, ANXIETY, 12/10/17) Reported Meds & Prescriptions Reported Meds & Active Scripts Active Zofran Odt (Ondansetron Odt) 4 Mg Tab 4 Mg SL Q6HR PRN Nifedipine ER 24 HR (Nifedipine) 60 Mg Tab 60 Mg PO DAILY Reported Lorazepam 0.5 Mg Tab 0.5 Mg PO HS PRN Gabapentin 300 Mg Cap 600 Mg PO HS Methadone (Methadone HCl) 10 Mg Tab 20 Mg PO DAILY Fentanyl Patch 72 HR (Fentanyl) 25 Mcg/Hr Patch 25 Mcg T-DERMAL Q72H Valacyclovir (Valacyclovir HCl) 1,000 Mg Tab 1,000 Mg PO TID Xarelto (Rivaroxaban) 20 Mg Tab 20 Mg PO DAILY Cozaar (Losartan Potassium) 100 Mg Tab 100 Mg PO DAILY Review of Systems Except as stated in HPI: all other systems reviewed are Neg Physical Exam Narrative GENERAL: Well-developed elderly female patient currently in mild respiratory distress. Awake and oriented 3. SKIN: Focused skin assessment warm/dry. HEAD: Atraumatic. Normocephalic. EYES: Pupils equal and round. No scleral icterus. No injection or drainage. ENT: No nasal bleeding or discharge. Mucous membranes pink and moist. NECK: Trachea midline. No JVD. Supple. CARDIOVASCULAR: Regular rate and rhythm. No murmur appreciated. RESPIRATORY: Mild accessory muscle use. Mild wheezing throughout. Breath sounds equal bilaterally. GASTROINTESTINAL: Abdomen soft, non-tender, nondistended. Hepatic and splenic margins not palpable. MUSCULOSKELETAL: No obvious deformities. No clubbing. No cyanosis. Notable edema of the entire left arm. NEUROLOGICAL: Awake and alert. No obvious cranial nerve deficits. Motor grossly within normal limits. Normal speech. PSYCHIATRIC: Appropriate mood and affect; insight and judgment normal. Data Data Last Documented VS Vital Signs Date Time Temp Pulse Resp B/P (MAP) Pulse Ox O2 Delivery O2 Flow Rate FiO2 12/10/17 18:11 19 Room Air 12/10/17 17:53 98.2 111 104/55 (71) 97 Orders Orders Electrocardiogram (12/10/17 18:00) Complete Blood Count With Diff (12/10/17 18:00) Comprehensive Metabolic Panel (12/10/17 18:00) Prothrombin Time / Inr (Pt) (12/10/17 18:00) Act Partial Throm Time (Ptt) (12/10/17 18:00) Us Arm Venous Doppler (12/10/17 18:00) Ct Pulmonary Angiogram (12/10/17 18:00) Labs Laboratory Tests Test 12/10/17 18:40 White Blood Count 5.1 TH/MM3 Red Blood Count 2.95 MIL/MM3 Hemoglobin 10.8 GM/DL Hematocrit 31.1 % Mean Corpuscular Volume 105.5 FL Mean Corpuscular Hemoglobin 36.6 PG Mean Corpuscular Hemoglobin Concent 34.6 % Red Cell Distribution Width 14.1 % Platelet Count 289 TH/MM3 Mean Platelet Volume 6.7 FL Neutrophils (%) (Auto) 74.6 % Lymphocytes (%) (Auto) 9.6 % Monocytes (%) (Auto) 12.9 % Eosinophils (%) (Auto) 2.1 % Basophils (%) (Auto) 0.8 % Neutrophils # (Auto) 3.8 TH/MM3 Lymphocytes # (Auto) 0.5 TH/MM3 Monocytes # (Auto) 0.7 TH/MM3 Eosinophils # (Auto) 0.1 TH/MM3 Basophils # (Auto) 0.0 TH/MM3 CBC Comment DIFF FINAL Differential Comment Prothrombin Time 13.4 SEC Prothromb Time International Ratio 1.3 RATIO Activated Partial Thromboplast Time 35.0 SEC Blood Urea Nitrogen 19 MG/DL Creatinine 1.13 MG/DL Random Glucose 106 MG/DL Albumin 3.2 GM/DL Calcium Level 9.0 MG/DL Aspartate Amino Transf (AST/SGOT) 28 U/L Sodium Level 135 MEQ/L Potassium Level 4.2 MEQ/L Chloride Level 98 MEQ/L Carbon Dioxide Level 30.0 MEQ/L Anion Gap 7 MEQ/L Estimat Glomerular Filtration Rate 46 ML/MIN [facility] Medical Decision Making Medical Screen Exam Complete: Yes Emergency Medical Condition: Yes Medical Record Reviewed: Yes Interpretation(s) Laboratory Tests Test 12/10/17 18:40 Red Blood Count 2.95 MIL/MM3 (4.00-5.30) Hemoglobin 10.8 GM/DL (11.6-15.3) Hematocrit 31.1 % (35.0-46.0) Mean Corpuscular Volume 105.5 FL (80.0-100.0) Mean Corpuscular Hemoglobin 36.6 PG (27.0-34.0) Mean Platelet Volume 6.7 FL (7.0-11.0) Neutrophils (%) (Auto) 74.6 % (16.0-70.0) Monocytes (%) (Auto) 12.9 % (0.0-8.0) Lymphocytes # (Auto) 0.5 TH/MM3 (1.0-4.8) Prothrombin Time 13.4 SEC (9.8-11.6) Activated Partial Thromboplast Time 35.0 SEC (24.3-30.1) Blood Urea Nitrogen 19 MG/DL (7-18) Creatinine 1.13 MG/DL (0.50-1.00) Albumin 3.2 GM/DL (3.4-5.0) Sodium Level 135 MEQ/L (136-145) Estimat Glomerular Filtration Rate 46 ML/MIN (>89) Differential Diagnosis Left arm DVT versus PE versus dependent edema Narrative Course Lab work and ultrasound of the left arm was ordered for rule out DVT. CAT scan ordered to rule out PE. Physician Communication Physician Communication Case is signed out at [address] Foster awaiting workup. Disposition based on workup. Diagnosis Primary Impression: Left upper extremity swelling Condition: Stable Marika Griffith MD December 10, 2017 18:18
[2017-12-10 18:49] LABS: AUTOMATED NEUTROPHIL # 3.8 TH/MM3 (1.8-7.7); BASOPHIL % 0.8 % (0.0-2.0); EOSINOPHIL # 0.1 TH/MM3 (0-0.4); EOSINOPHIL % 2.1 % (0.0-4.0); HEMATOCRIT 31.1 % (35.0-46.0); HEMOGLOBIN 10.8 GM/DL (11.6-15.3); LYMPH % 9.6 % (9.0-44.0); LYMPHOCYTE # 0.5 TH/MM3 (1.0-4.8); MEAN CELL VOLUME 105.5 FL (80.0-100.0); MEAN CORPUSCULAR HEMOGLOBIN 36.6 PG (27.0-34.0); MEAN CORPUSCULAR HGB CONC 34.6 % (32.0-36.0); MEAN PLATELET VOLUME 6.7 FL (7.0-11.0); MONO % 12.9 % (0.0-8.0); MONOCYTE # 0.7 TH/MM3 (0-0.9); NEUT % 74.6 % (16.0-70.0); PLATELET COUNT 289 TH/MM3 (150-450); RED BLOOD COUNT 2.95 MIL/MM3 (4.00-5.30); RED CELL DISTRIBUTION WIDTH 14.1 % (11.6-17.2); WHITE BLOOD COUNT 5.1 TH/MM3 (4.0-11.0)
[2017-12-10 19:03] LABS: INTERNATIONAL NORMALIZED RATIO 1.3 RATIO; PROTHROMBIN TIME - PATIENT 13.4 SEC (9.8-11.6)
[2017-12-10 19:15] LABS: ALBUMIN 3.2 GM/DL (3.4-5.0); AST (GOT) 28 U/L (15-37); BLOOD UREA NITROGEN 19 MG/DL (7-18); CHLORIDE 98 MEQ/L (98-107); CREATININE 1.13 MG/DL (0.50-1.00); GLOMERULAR FILTRATION RATE 46 ML/MIN (>89); GLUCOSE,RANDOM 106 MG/DL (74-106); SODIUM (NA) 135 MEQ/L (136-145)
[2017-12-10 19:17] LABS: ALT (GPT) 16 U/L (10-53)
[2017-12-10 19:19] LABS: ALKALINE PHOSPHATASE 96 U/L (45-117); TOTAL BILIRUBIN ADULT 0.3 MG/DL (0.2-1.0); TOTAL PROTEIN 6.9 GM/DL (6.4-8.2)
--- NOTE | 2017-12-10 19:30 | PD ---
Physical Exam Date Seen by Provider: December 10, 2017 Time Seen by Provider: 19:28 Narrative pt signed out to me by prior attending to follow CT and US to R/O PE and DVT history of breast CA and in middle of [facility] rad to tumor in neck area . Dr Su sent in by her ONC Data Data Last Documented VS Vital Signs Date Time Temp Pulse Resp B/P (MAP) Pulse Ox O2 Delivery O2 Flow Rate FiO2 12/10/17 20:50 20 12/10/17 20:45 88 110/62 (78) 98 Room Air 12/10/17 17:53 98.2 Orders Orders Complete Blood Count With Diff (12/10/17 18:00) Comprehensive Metabolic Panel (12/10/17 18:00) Prothrombin Time / Inr (Pt) (12/10/17 18:00) Act Partial Throm Time (Ptt) (12/10/17 18:00) Us Arm Venous Doppler (12/10/17 18:00) Ct Pulmonary Angiogram (12/10/17 18:00) Iohexol 350 Inj (Omnipaque 350 Inj) (12/10/17 19:39) Hydromorphone Pf Inj (Dilaudid Pf Inj) (12/10/17 20:30) Enoxaparin Inj (Lovenox Inj) (12/10/17 22:00) Admit Order (Ed Use Only) (12/10/17 22:30) Labs Laboratory Tests Test 12/10/17 18:40 White Blood Count 5.1 TH/MM3 Red Blood Count 2.95 MIL/MM3 Hemoglobin 10.8 GM/DL Hematocrit 31.1 % Mean Corpuscular Volume 105.5 FL Mean Corpuscular Hemoglobin 36.6 PG Mean Corpuscular Hemoglobin Concent 34.6 % Red Cell Distribution Width 14.1 % Platelet Count 289 TH/MM3 Mean Platelet Volume 6.7 FL Neutrophils (%) (Auto) 74.6 % Lymphocytes (%) (Auto) 9.6 % Monocytes (%) (Auto) 12.9 % Eosinophils (%) (Auto) 2.1 % Basophils (%) (Auto) 0.8 % Neutrophils # (Auto) 3.8 TH/MM3 Lymphocytes # (Auto) 0.5 TH/MM3 Monocytes # (Auto) 0.7 TH/MM3 Eosinophils # (Auto) 0.1 TH/MM3 Basophils # (Auto) 0.0 TH/MM3 CBC Comment DIFF FINAL Differential Comment Prothrombin Time 13.4 SEC Prothromb Time International Ratio 1.3 RATIO Activated Partial Thromboplast Time 35.0 SEC Blood Urea Nitrogen 19 MG/DL Creatinine 1.13 MG/DL Random Glucose 106 MG/DL Total Protein 6.9 GM/DL Albumin 3.2 GM/DL Calcium Level 9.0 MG/DL Alkaline Phosphatase 96 U/L Aspartate Amino Transf (AST/SGOT) 28 U/L Alanine Aminotransferase (ALT/SGPT) 16 U/L Total Bilirubin 0.3 MG/DL Sodium Level 135 MEQ/L Potassium Level 4.2 MEQ/L Chloride Level 98 MEQ/L Carbon Dioxide Level 30.0 MEQ/L Anion Gap 7 MEQ/L Estimat Glomerular Filtration Rate 46 ML/MIN MDM Supervised Visit with [facility]: No Interpretation(s) DVT study Positive left upper arm DVT CTA negative Narrative Course DVT in left arm related to tumor compression of vessels of the neck Heparin started and admitted to medicine Dr Albright Diagnosis Primary Impression: Left upper extremity swelling Additional Impression: DVT (deep venous thrombosis) Qualified Codes: I82.A12 - Acute embolism and thrombosis of left axillary vein Admitting Information Admitting Physician Requests: Admit Condition: Stable Chay Foster MD December 10, 2017 19:30
[2017-12-10] MEDS ORDERED: IOHEXOL 350 MG/ML 10 ML VIAL (for RAD DIAG) IVCONTRAST ONE (19:39)
--- NOTE | 2017-12-10 19:53 | RADRPT ---
EXAM DATE/TIME: 12/10/2017 19:33 [facility] COMPARISON: No previous studies available for comparison. INDICATIONS : Shortness of breath. IV CONTRAST: 75 cc Omnipaque 350 (iohexol) IV RADIATION DOSE: 4.66 CTDIvol (mGy) MEDICAL HISTORY : Carcinoma, breast. Cardiovascular disease Hypertension.DVT. SURGICAL HISTORY : Mastectomy, bilateral. ENCOUNTER: Initial ACUITY: 1 day PAIN SCALE: 5/10 LOCATION: Bilateral chest TECHNIQUE: Volumetric scanning of the chest was performed using a pulmonary embolism protocol MIP images were re constructed. Using automated exposure control and adjustment of the mA and/or kV according to patien t size, radiation dose was kept as low as reasonably achievable to obtain optimal diagnostic quality images. DICOM format image data is available electronically for review and comparison. Follow-up recommendations for detected pulmonary nodules are based at a minimum on nodule size and pa tient risk factors according to Fleischner Society Guidelines. FINDINGS: No filling defects are identified to suggest pulmonary embolic disease in the lungs. There is no pleu ral pericardial effusion. Parenchymal linear scarring upper left lung. No other consolidation. There is abnormal soft tissue in the left supraclavicular region patient is status post radiation the rapy for metastatic left breast carcinoma. Right-sided port is present. No acute findings in the uppe r abdomen. CONCLUSION: 1. Negative for pulmonary embolus. 2. Abnormal soft tissue in the left supraclavicular region surrounding the left common carotid artery status post radiation treatment when compared to CT from November 03. Slight decrease in tumor size sin ce prior CT. 3. Parenchymal scarring upper left lung. No other consolidation or effusion. Daniel Boucher MD on December 10, 2017 at 19:47 Board Certified Radiologist. This report was verified electronically.
[2017-12-10] MEDS ORDERED: HYDROmorphone HCL PF 1 MG/ML VIAL IV PUSH ONE (20:30)
[2017-12-10 20:45] VITALS: BP 110/62; PULSE 88; RESP 20; O2SAT 98
--- NOTE | 2017-12-10 21:33 | RADRPT ---
EXAM DATE/TIME: 12/10/2017 20:06 This report includes an Addendum and supersedes previous reports for this exam. [facility] COMPARISON: No previous studies available for comparison. INDICATIONS : Left arm swelling. History of DVT in the left arm. MEDICAL HISTORY : Hypertension. Carcinoma, breast. Anticoagulant therapy, xarelto. Renal calculi. SURGICAL HISTORY : Tonsillectomy. Left mastectomy. Right chest port. Dental crowns. ENCOUNTER: Subsequent ACUITY: 2 day PAIN SCORE: 3/10 LOCATION: Left arm. FINDINGS: Positive deep venous thrombosis in the left subclavian vein, axillary vein and possibly jugular vein. There is a mass in the left supraclavicular region question skewing the jugular vein. Brachial, basi lic and cephalic veins are patent. CONCLUSION: 1. Positive deep venous thrombosis in the left subclavian vein, axillary vein and possible left inter nal jugular vein. Daniel Boucher MD on December 10, 2017 at 21:30 Board Certified Radiologist. This report was verified electronically. ADDENDUM: COMPARISON: US ARM LEFT VENOUS DOPPLER, July 10, 2017, 17:45. This examination was compared to the prior study from 07 10 2017. Currently, there is occlusive thromb us filling the left axillary artery. Previously blood flow was documented in the left axillary artery . Additionally, no blood flow is visualized in the left subclavian vein whereas on the prior study reed bclavian vein blood flow was documented. Findings suggest new or progression of the venous thrombosis in the left subclavian and axillary vein sosa Schuster MD on December 11, 2017 at 11:09 Board Certified Radiologist. This report was verified electronically.
[2017-12-10] MEDS ORDERED: SODIUM CHLORIDE 0.9% FLUSH 10 ML FLUSH IV FLUSH PRN (22:30)
[2017-12-10] MEDS ORDERED: SENNOSIDES 8.6 MG TAB PO PRN (22:30)
[2017-12-10] MEDS ORDERED: LACTULOSE SYRUP 20 GM/30 ML CUP PO PRN (22:30)
[2017-12-10] MEDS ORDERED: BISACODYL 10 MG SUPP RECTAL PRN (22:30)
[2017-12-10] MEDS ORDERED: NALOXONE HCL 0.4 MG/ML AMP IV PUSH PRN (22:30)
--- NOTE | 2017-12-10 22:30 | HHI.HP ---
HPI Service [facility] Primary Care Physician Keke Chapa MD Admission Diagnosis Travel History International Travel<30 Days: No Contact w/Intl Traveler <30 Da: No Traveled to Known Affected Are: No History of Present Illness This is a pleasant 82 yo female with metastatic breast cancer under the care of Dr. Grove who was sent to the ER [facility] for left arm swelling and suspicion of DVT in the arm. 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 Imaging [facility] showed new DVT in left subclavian vein, axillary vein, and possibly jugular vein, CTA was negative for PE. She does have a left chest mass expanding into the neck region, and recently developed left arm paralysis and pain secondary to invasion of the mass into the brachial plexus. Patient denies shortness of breath. She does endorse left arm pain which is exquisite and worse with movement. She wears a sling. She also was recently started on valacyclovir for shingles affecting that arm. She is undergoing radiation therapy currently, and hopes to be started on chemo s/p radiation. She describes her functional status as good, denies any recent falls. Does endorse constipation. Denies any blood in stool. Review of Systems Constitutional: DENIES: Fatigue, Fever Eyes: DENIES: Blurred vision, Diplopia Respiratory: DENIES: Cough, Hemoptysis, Shortness of breath Cardiovascular: DENIES: Chest pain, Palpitations Gastrointestinal: COMPLAINS OF: Constipation, DENIES: Abdominal pain Genitourinary: DENIES: Urinary frequency, Dysuria Musculoskeletal: DENIES: Neck pain Integumentary: COMPLAINS OF: Rash, DENIES: Pruritus Hematologic/lymphatic: COMPLAINS OF: Lymphadenopathy Neurologic: DENIES: Abnormal gait, Headache Psychiatric: DENIES: Anxiety, Confusion Past Family Social History Past Medical History Breast cancer 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 HTN DVT arthritis hemorrhoids Reported Medications Allergies Coded Allergies Type Severity Reaction Last Updated Verified meperidine Allergy Severe Irritability/Anxiety 12/10/17 Yes morphine Allergy Severe Irritability/Anxiety 12/10/17 Yes oxycodone Allergy Severe ANXIETY 12/10/17 Yes Active Scripts Medications Dose Route/Sig Max Daily Dose Days Date Category Lorazepam 0.5 Mg Tab 0.5 Mg PO HS PRN 12/10/17 Reported Gabapentin 300 Mg Cap 600 Mg PO HS 12/10/17 Reported Methadone (Methadone HCl) 10 Mg Tab 20 Mg PO DAILY 12/10/17 Reported Fentanyl Patch 72 HR (Fentanyl) 25 Mcg/Hr Patch 25 Mcg T-DERMAL Q72H 12/10/17 Reported Valacyclovir (Valacyclovir HCl) 1,000 Mg Tab 1,000 Mg PO TID 12/10/17 Reported Zofran Odt (Ondansetron Odt) 4 Mg Tab 4 Mg SL Q6HR PRN 08/06/17 Rx Nifedipine ER 24 HR (Nifedipine) 60 Mg Tab 60 Mg PO DAILY 07/12/17 Rx Xarelto (Rivaroxaban) 20 Mg Tab 20 Mg PO DAILY 09/17/16 Reported Cozaar (Losartan Potassium) 100 Mg Tab 100 Mg PO DAILY 09/17/16 Reported Allergies: Coded Allergies: meperidine (Verified Allergy, Severe, Irritability/Anxiety, 12/10/17) morphine (Verified Allergy, Severe, Irritability/Anxiety, 12/10/17) oxycodone (Verified Allergy, Severe, ANXIETY, 12/10/17) Family History reviewed, MD Social History 30 pack year hx tobacco, but quit years ago etoh several times per week , at home with her Physical Exam Vital Signs Vital Signs Date Time Temp Pulse Resp B/P (MAP) Pulse Ox O2 Delivery O2 Flow Rate FiO2 12/10/17 20:50 20 12/10/17 20:45 88 20 110/62 (78) 98 Room Air 12/10/17 18:11 19 Room Air 12/10/17 17:53 98.2 111 24 104/55 (71) 97 Physical Exam GENERAL: This is a well-nourished, well-developed elderly CF patient, in no apparent distress, who appears younger than stated age. SKIN: several scattered erythematous macules over left arm and left trunk. HEAD: Atraumatic. Normocephalic. EYES: Pupils equal round and reactive. Extraocular motions intact. No scleral icterus. No injection or drainage. ENT: Throat without erythema, tonsillar hypertrophy or exudate. Uvula midline. Airway patent. NECK: significant swelling of the left supraclavicular area. Trachea midline. CARDIOVASCULAR: Regular rate and rhythm without murmurs, gallops, or rubs. RESPIRATORY: Clear to auscultation. Breath sounds equal bilaterally. No wheezes , rales, or rhonchi. GASTROINTESTINAL: Abdomen soft, non-tender, nondistended. No hepato-splenomegaly , or palpable masses. No guarding. MUSCULOSKELETAL: She has significant edema of the left upper extremity. NEUROLOGICAL: Awake and alert. paresis of left arm. Normal speech. Laboratory Laboratory Tests Test 12/10/17 18:40 White Blood Count 5.1 Red Blood Count 2.95 Hemoglobin 10.8 Hematocrit 31.1 Mean Corpuscular Volume 105.5 Mean Corpuscular Hemoglobin 36.6 Mean Corpuscular Hemoglobin Concent 34.6 Red Cell Distribution Width 14.1 Platelet Count 289 Mean Platelet Volume 6.7 Neutrophils (%) (Auto) 74.6 Lymphocytes (%) (Auto) 9.6 Monocytes (%) (Auto) 12.9 Eosinophils (%) (Auto) 2.1 Basophils (%) (Auto) 0.8 Neutrophils # (Auto) 3.8 Lymphocytes # (Auto) 0.5 Monocytes # (Auto) 0.7 Eosinophils # (Auto) 0.1 Basophils # (Auto) 0.0 CBC Comment DIFF FINAL Differential Comment Prothrombin Time 13.4 Prothromb Time International Ratio 1.3 Activated Partial Thromboplast Time 35.0 Blood Urea Nitrogen 19 Creatinine 1.13 Random Glucose 106 Total Protein 6.9 Albumin 3.2 Calcium Level 9.0 Alkaline Phosphatase 96 Aspartate Amino Transf (AST/SGOT) 28 Alanine Aminotransferase (ALT/SGPT) 16 Total Bilirubin 0.3 Sodium Level 135 Potassium Level 4.2 Chloride Level 98 Carbon Dioxide Level 30.0 Anion Gap 7 Estimat Glomerular Filtration Rate 46 Result Diagram: 12/10/17183912/10/171839 Imaging Last Impressions Upper Extremity Ultrasound 12/10/17 1800 Signed Impressions: Service Date/Time: Sunday, December 10, 2017 20:06 - CONCLUSION: 1. 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 Daniel Boucher MD CT Angiography 12/10/17 1800 Signed Impressions: Service Date/Time: Sunday, December 10, 2017 19:33 - CONCLUSION: 1. Negative for pulmonary embolus. 2. Abnormal soft tissue in the left supraclavicular region surrounding the left common carotid artery status post radiation treatment when compared to CT from November 03. Slight decrease in tumor size since prior CT. 3. Parenchymal scarring upper left lung. No other consolidation or effusion. Daniel Boucher MD Caprini VTE Risk Assessment Caprini VTE Risk Assessment: Mod/High Risk (score >= 2) Caprini Risk Assessment Model Point Value = 1 Point Value = 2 Point Value = 3 Point Value = 5 Age 41-60 Minor surgery BMI > 25 kg/m2 Swollen legs Varicose veins or History of unexplained or recurrent spontaneous Oral contraceptives or hormone replacement Sepsis (< 1 month) Serious lung disease, including pneumonia (< 1 month) Abnormal pulmonary function Acute myocardial infarction Congestive heart failure (< 1 month) History of inflammatory bowel disease Medical patient at bed rest Age 61-74 Arthroscopic surgery Major open surgery (> 45 min) Laparoscopic surgery (> 45 min) Malignancy Confined to bed (> 72 hours) Immobilizing plaster cast Central venous access Age >= 75 History of VTE Family history of VTE Factor V Leiden Prothrombin [id number] Lupus anticoagulant Anticardiolipin antibodies Elevated serum homocysteine Heparin-induced thrombocytopenia Other congenital or acquired thrombophilia Stroke (< 1 month) Elective arthroplasty Hip, pelvis, or leg fracture Acute spinal cord injury (< 1 month) Prophylaxis Regimen Total Risk Factor Score Risk Level Prophylaxis Regimen 0-1 Low Early ambulation 2 Moderate Order ONE of the following: *Sequential Compression Device (SCD) *Heparin 5000 units SQ BID 3-4 Higher Order ONE of the following medications: *Heparin 5000 units SQ TID *Enoxaparin/Lovenox 40 mg SQ daily (WT < 150 kg, CrCl > 30 mL/min) *Enoxaparin/Lovenox 30 mg SQ daily (WT < 150 kg, CrCl > 10-29 mL/min) *Enoxaparin/Lovenox 30 mg SQ BID (WT < 150 kg, CrCl > 30 mL/min) AND/OR *Sequential Compression Device (SCD) 5 or more Highest Order ONE of the following medications: *Heparin 5000 units SQ TID (Preferred with Epidurals) *Enoxaparin/Lovenox 40 mg SQ daily (WT < 150 kg, CrCl > 30 mL/min) *Enoxaparin/Lovenox 30 mg SQ daily (WT < 150 kg, CrCl > 10-29 mL/min) *Enoxaparin/Lovenox 30 mg SQ BID (WT < 150 kg, CrCl > 30 mL/min) AND *Sequential Compression Device (SCD) Assessment and Plan Problem List: (1) DVT (deep venous thrombosis) ICD Codes: I82.409 - Acute embolism and thrombosis of unspecified deep veins of unspecified lower extremity Status: Chronic (2) Metastatic breast cancer ICD Codes: C50.919 - Malignant neoplasm of unspecified site of unspecified female breast Status: Acute (3) Left upper extremity swelling ICD Codes: M79.89 - Other specified soft tissue disorders Assessment and Plan -Acute DVT left subclavian, axillary vein, related to metastatic breast cancer - failed xarelto as outpatient, likely due to tumor compressing vasculature. will initiate treatment with SQ lovenox. Discussed with patient, she cannot give herself injections but states that her neighbor can. Will consult with hematology/Dr. Grove. -HTN -will hold medications for now as blood pressure on low side of normal. -herpes zoster left arm/trunk - continue valacyclovir. -left arm paralysis due to brachial plexus injury (presumably from mass) - continue arm sling and pain control with her home methadone and fentanyl. -constipation - initiate bowel regimen. Luz Merrill MD December 10, 2017 22:30
[2017-12-10] MEDS ORDERED: LORazepam 0.5 MG TAB PO PRN (22:45)
[2017-12-10] MEDS: REMOVE OLD FENTANYL PATCH T-DERMAL SCH (23:00)
[2017-12-10] MEDS: fentaNYL 25 MCG/HR PATCH T-DERMAL SCH (23:24)
[2017-12-10] MEDS: ENOXAPARIN SODIUM 60 MG/0.6 ML SYRINGE SQ SCH (23:25)
[2017-12-10] MEDS: DOCUSATE SODIUM 50 MG/SENNA 8.6 MG TAB PO SCH (23:25)
[2017-12-11 02:34] VITALS: BP 123/71; PULSE 91; RESP 16; TEMP 98.2; O2SAT 95
[2017-12-11 04:16] VITALS: BP 157/76; PULSE 85; RESP 16; TEMP 97.9; O2SAT 96
[2017-12-11] MEDS ORDERED: METHADONE HCL 10 MG TAB PO ONE (06:30)
[2017-12-11 07:34] VITALS: BP 140/76; PULSE 88; RESP 20; TEMP 97.9; O2SAT 98
[2017-12-11 07:56] LABS: AUTOMATED NEUTROPHIL # 2.6 TH/MM3 (1.8-7.7); BASOPHIL % 0.8 % (0.0-2.0); EOSINOPHIL # 0.2 TH/MM3 (0-0.4); EOSINOPHIL % 4.6 % (0.0-4.0); HEMATOCRIT 29.4 % (35.0-46.0); LYMPH % 17.1 % (9.0-44.0); LYMPHOCYTE # 0.8 TH/MM3 (1.0-4.8); MEAN CELL VOLUME 106.3 FL (80.0-100.0); MEAN CORPUSCULAR HEMOGLOBIN 36.1 PG (27.0-34.0); MEAN PLATELET VOLUME 7.5 FL (7.0-11.0); MONO % 19.7 % (0.0-8.0); MONOCYTE # 0.9 TH/MM3 (0-0.9); NEUT % 57.8 % (16.0-70.0); PLATELET COUNT 280 TH/MM3 (150-450); RED BLOOD COUNT 2.76 MIL/MM3 (4.00-5.30); RED CELL DISTRIBUTION WIDTH 14.6 % (11.6-17.2); WHITE BLOOD COUNT 4.5 TH/MM3 (4.0-11.0)
[2017-12-11 08:26] LABS: BICARBONATE 26.6 MEQ/L (21.0-32.0); CALCIUM 8.4 MG/DL (8.5-10.1); CREATININE 0.89 MG/DL (0.50-1.00)
[2017-12-11] MEDS: DOCUSATE SODIUM 50 MG/SENNA 8.6 MG TAB PO SCH ×2 (08:37→20:58)
[2017-12-11] MEDS: valACYclovir HCL 500 MG TAB PO SCH ×2 (08:38→13:00)
[2017-12-11] MEDS: ENOXAPARIN SODIUM 60 MG/0.6 ML SYRINGE SQ SCH ×2 (08:39→21:12)
[2017-12-11] MEDS: SODIUM CHLORIDE 0.9% FLUSH 10 ML FLUSH IV FLUSH SCH ×2 (08:39→20:59)
[2017-12-11] MEDS ORDERED: METHADONE HCL 10 MG TAB PO SCH (09:00)
--- NOTE | 2017-12-11 12:00 | HHI.PR ---
Subjective Remarks Pt complains of pain in the LUE She did not sleep well due to pain Objective Vitals Vital Signs Date Time Temp Pulse Resp B/P (MAP) Pulse Ox O2 Delivery O2 Flow Rate FiO2 12/11/17 07:34 97.9 88 20 140/76 (97) 98 12/11/17 04:16 97.9 85 16 157/76 (103) 96 12/11/17 02:34 98.2 91 16 123/71 (88) 95 12/10/17 20:50 20 12/10/17 20:45 88 20 110/62 (78) 98 Room Air 12/10/17 18:11 19 Room Air 12/10/17 17:53 98.2 111 24 104/55 (71) 97 Result Diagram: 12/11/17 0545 12/11/17 0545 Other Results Laboratory Tests Test 12/10/17 18:40 12/11/17 05:45 White Blood Count 5.1 TH/MM3 4.5 TH/MM3 Red Blood Count 2.95 MIL/MM3 2.76 MIL/MM3 Hemoglobin 10.8 GM/DL 10.0 GM/DL Hematocrit 31.1 % 29.4 % Mean Corpuscular Volume 105.5 FL 106.3 FL Mean Corpuscular Hemoglobin 36.6 PG 36.1 PG Mean Corpuscular Hemoglobin Concent 34.6 % 34.0 % Red Cell Distribution Width 14.1 % 14.6 % Platelet Count 289 TH/MM3 280 TH/MM3 Mean Platelet Volume 6.7 FL 7.5 FL Neutrophils (%) (Auto) 74.6 % 57.8 % Lymphocytes (%) (Auto) 9.6 % 17.1 % Monocytes (%) (Auto) 12.9 % 19.7 % Eosinophils (%) (Auto) 2.1 % 4.6 % Basophils (%) (Auto) 0.8 % 0.8 % Neutrophils # (Auto) 3.8 TH/MM3 2.6 TH/MM3 Lymphocytes # (Auto) 0.5 TH/MM3 0.8 TH/MM3 Monocytes # (Auto) 0.7 TH/MM3 0.9 TH/MM3 Eosinophils # (Auto) 0.1 TH/MM3 0.2 TH/MM3 Basophils # (Auto) 0.0 TH/MM3 0.0 TH/MM3 CBC Comment DIFF FINAL DIFF FINAL Differential Comment Prothrombin Time 13.4 SEC Prothromb Time International Ratio 1.3 RATIO Activated Partial Thromboplast Time 35.0 SEC Blood Urea Nitrogen 19 MG/DL 17 MG/DL Creatinine 1.13 MG/DL 0.89 MG/DL Random Glucose 106 MG/DL 79 MG/DL Total Protein 6.9 GM/DL Albumin 3.2 GM/DL Calcium Level 9.0 MG/DL 8.4 MG/DL Alkaline Phosphatase 96 U/L Aspartate Amino Transf (AST/SGOT) 28 U/L Alanine Aminotransferase (ALT/SGPT) 16 U/L Total Bilirubin 0.3 MG/DL Sodium Level 135 MEQ/L 135 MEQ/L Potassium Level 4.2 MEQ/L 4.2 MEQ/L Chloride Level 98 MEQ/L 101 MEQ/L Carbon Dioxide Level 30.0 MEQ/L 26.6 MEQ/L Anion Gap 7 MEQ/L 7 MEQ/L Estimat Glomerular Filtration Rate 46 ML/MIN 61 ML/MIN Imaging Last Impressions Upper Extremity Ultrasound 12/10/17 1800 Signed Impressions: Service Date/Time: Sunday, December 10, 2017 20:06 - CONCLUSION: 1. 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 Daniel Boucher MD ADDENDUM: COMPARISON: US ARM LEFT VENOUS DOPPLER, July 10, 2017, 17:45. This examination was compared to the prior study from 07 10 2017. Currently, there is occlusive thrombus filling the left axillary artery. Previously blood flow was documented in the left axillary artery. Additionally, no blood flow is visualized in the left subclavian vein whereas on the prior study subclavian vein blood flow was documented. Findings suggest new or progression of the venous thrombosis in the left subclavian and axillary veins. Jose Manuel Schuster MD CT Angiography 12/10/17 1800 Signed Impressions: Service Date/Time: Sunday, December 10, 2017 19:33 - CONCLUSION: 1. Negative for pulmonary embolus. 2. Abnormal soft tissue in the left supraclavicular region surrounding the left common carotid artery status post radiation treatment when compared to CT from November 03. Slight decrease in tumor size since prior CT. 3. Parenchymal scarring upper left lung. No other consolidation or effusion. Daniel Boucher MD Objective Remarks General: NAD, AAOx3 Chest: CTA Cardiac: Regular Abd: +BS, soft ND/NT Ext: Swelling of the LUE A/P Problem List: (1) DVT (deep venous thrombosis) ICD Codes: I82.409 - Acute embolism and thrombosis of unspecified deep veins of unspecified lower extremity Status: Chronic Plan: LUE DVT Recurrent metastatic breast cancer Left axillary mass, neck mass Left arm paralysis - Pt is an 82 y/o female with recurrent metastatic breast cancer, with left chest mass expanding into the neck region, and recently developed left arm paralysis and pain secondary to invasion of the mass into the brachial plexus. She follows with Dr. Grove. - Pt presented to the ED at [facility] [place] on 12/10/17 with complaints of worsening swelling to the LUE - Pt has known previous LUE DVT and has been on Xarelto for this. 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 She recently resumed radiation therapy - Left upper extremity US (12/10/17) --> This examination was compared to the prior study from 07/10/2017. Currently, there is occlusive thrombus filling the left axillary artery. Previously blood flow was documented in the left axillary artery. Additionally , no blood flow is visualized in the left subclavian vein whereas on the prior study subclavian vein blood flow was documented. Findings suggest new or progression of the venous thrombosis in the left subclavian and axillary veins. - CTA Chest (12/10/17) --> Negative for PE - Pts Xarelto was stopped at admission and pt was started on Lovenox 50mg Q12H - Will consult Oncology, to assist with addressing the anticoagulants, pt follows with Dr. Grove. - Continue arm sling and pain control. Pt has been taking Methadone 20mg po daily and Fentanyl 25mcg at home. She had tried a high dose of Fentanyl in the past but this caused her to have vomiting. She states that she can't tolerate Morphine or Oxycodone - We will continue the Fentanyl and add Dilaudid 1mg IV Q4H which she received in the ED and tolerated well. HTN, benign - Pts home medications were held at admission due to low BP - Pt is normally on Losartan 100mg po daily and Procardia XL 60mg po daily - These can be resumed as BP allows - Clonidine PRN Herpes zoster left arm/trunk - Continue valacyclovir. Constipation - initiate bowel regimen. (2) Metastatic breast cancer ICD Codes: C50.919 - Malignant neoplasm of unspecified site of unspecified female breast Status: Acute (3) Left upper extremity swelling ICD Codes: M79.89 - Other specified soft tissue disorders (4) Hypertension, benign ICD Codes: I10 - Essential (primary) hypertension Status: Chronic Khushi Lester December 11, 2017 12:00
--- NOTE | 2017-12-11 13:48 | EKG ---
Date Performed: 12/10/2017 Time Performed: 18:15:46 PTAGE: 82 years EKG: Sinus rhythm NORMAL ECG PREVIOUS TRACING : 02/06/2015 10.48 Since the previous tracing, no significant change noted DOCTOR: Nikos Rai Interpretating Date/Time 12/11/2017 13:47:09
[2017-12-11] MEDS: ACETAMINOPHEN 325 MG TAB PO PRN (13:51)
[2017-12-11 14:59] VITALS: BP 171/79; PULSE 84; RESP 16; TEMP 98.4; O2SAT 97
[2017-12-11] MEDS ORDERED: HYDROmorphone HCL PF 2 MG/ML VIAL IV PUSH ONE (15:15)
[2017-12-11] MEDS ORDERED: HYDROmorphone HCL PF 2 MG/ML VIAL IV PUSH PRN (15:15)
[2017-12-11] MEDS: ONDANSETRON HCL 4 MG/2 ML VIAL IVP PRN (15:37)
[2017-12-11] MEDS: cloNIDine HCL 0.1 MG TAB PO PRN (15:37)
--- NOTE | 2017-12-11 17:43 | MB ---
cc: Jaime Jimenez MD, Richard MD DATE: 12/11/2017 CHIEF COMPLAINT: 1. Breast cancer. 2. Severe pain and inability to proceed with radiation therapy to the left neck and left supraclavicular and brachial area. PATIENT PROFILE: The patient is an 82-year-old white female. She is . She has no children. She was born in [facility], has lived in [place] for 15 years. 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 She stopped smoking more than 40 years ago. She does not drink alcohol. HISTORY OF PRESENT ILLNESS: The patient is an 82-year-old female whose history dates back to 10/07/2011 when she underwent a left mastectomy and axillary node dissection. 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 She had pathologic T2 N1 disease. She apparently had a previous surgery and this represented a recurrence. At some point, she indicates that she had received what sounds like dose dense chemotherapy. She unfortunately has had a number of reoccurrences. The pathology report from 01/23/2016 shows poorly differentiated carcinoma in a left axillary mass. She had further reoccurrence and a biopsy of the left axilla on 03/04/2017 was positive for malignant cells. It is unclear to me what treatment she has received, but she has undergone additional treatments to prevent further reoccurrence. She recently developed increasing pain down the left arm with swelling. She was found to have reoccurrence involving the left supraclavicular area, lower neck and I believe the brachial plexus. She was scheduled for outpatient radiation therapy. She has had 2 radiation treatments. The pain has been so severe that she has not been able to continue . At the same time, the left arm is becoming immobile. She has pain in the left arm. She had a previous history of a deep vein thrombosis involving the left arm and takes Xarelto. Over the past week, the left arm swelling has worsened. She recently developed lesions in the left lower axillary upper arm area suggestive of shingles and was placed on valtrex. She is now admitted to the hospital because of increasing pain in the left neck, left upper arm and the inability to proceed with outpatient radiation due to this pain. She underwent a CT angiogram on 12/10/2017 showing abnormal soft tissue in the left supraclavicular region surrounding the left common carotid artery. There was no evidence of pulmonary emboli. An ultrasound of the upper extremity is compared with a film from 07/10/2017. Currently, there is occlusive thrombus filling the left axillary artery. Previously noted blood flow was documented in the left axillary artery. Additionally, there is no blood flow visualized in the left subclavian vein, where on the prior study subclavian vein blood flow was documented. Findings suggest new or progression of the venous thrombosis in the left subclavian vein and axillary veins. Prior to this, the patient had been on Xarelto. PAST SURGICAL HISTORY: 1. Left lumpectomy. I am not sure of date. 2. Left mastectomy and axillary dissection. 3. Biopsies of the left axilla in 01/2016, and showing tumor. 4. Port placement for hysterectomy and single oophorectomy. 5. Appendectomy. 6. Tonsillectomy. PAST MEDICAL HISTORY: 1. Locally recurrent breast cancer. 2. Arthritis. 3. Hypertension. 4. History of hemorrhoids. ALLERGIES: DEMEROL CAUSED HALLUCINATIONS MORPHINE CAUSED HALLUCINATIONS PERCOCET CAUSED HALLUCINATIONS. OXYCODONE MEDICATIONS: 1. Fentanyl 25 mcg q 72 hours. 2. Gabapentin 600 mg p.o. hs. 3. Ativan 0.5 mg p.o. hs p.r.n. 4. Losartan. 5. Methadone. 6. Nifedipine. 7. Ondansetron. 8. Xarelto. 9. Valtrex. FAMILY HISTORY: Noncontributory. REVIEW OF SYSTEMS: No change in vision or hearing. No chest pain, palpitations. No shortness of breath. She has pain of left neck, left supraclavicular area, pain down the left arm and worsening swelling of the left arm with total mobility of the left arm. No abdominal or pelvic pain. No bone pain. Neurologic - No use of the left arm. LABORATORY DATA: Hemoglobin 10, white count 4500, platelets 280,000. Electrolytes, BUN, creatinine, liver function tests unremarkable. PHYSICAL EXAMINATION: GENERAL: Reveals a frail female. She has a sling left arm. There is no movement of the left arm, hands, fingers. VITAL SIGNS: Blood pressure 170/80, respiratory rate 16, pulse 80, afebrile. O2 saturation 97%. HEENT: Head is normocephalic. Sclerae and conjunctivae are normal. Oropharynx unremarkable. There is adenopathy involving the left neck, left supraclavicular area. HEART: Regular rhythm. LUNGS: Clear. ABDOMEN: Soft. No hepatosplenomegaly. EXTREMITIES: 3+ edema of the left arm. MUSCULOSKELETAL: No bone pain. NEUROLOGIC: No movement of the left arm. SKIN: She has erythematous areas of induration in the left upper arm axillary area, which is not in the distribution of a dermatome. I believe this represents infiltration of skin from her known triple negative breast cancer. ASSESSMENT AND PLAN: The patient has breast cancer with extensive local reoccurrence involving the neck, supraclavicular area, brachial plexus and skin of the axillary upper arm. Due to pain, she is not able to proceed with outpatient treatment. She has progressive clot involving both artery and vein as described in the ultrasound above. PLAN: 1. Discontinue Xarelto. 2. Lovenox 1 mg/kg subcu q 12 hours. 3. Consult radiation therapy. 4. Continue pain medicines and adjust as necessary to control pain. She is currently receiving fentanyl patch, morphine and Neurontin. Will adjust medicines as needed, she would prefer that we leave her current medicines alone for the moment. Will discontinue Valtrex. MD KEVEN Ayala/ , 04:48 PM , 05:41 PM MTDD
[2017-12-11 20:06] VITALS: BP 112/63; PULSE 86; RESP 17; TEMP 98.6; O2SAT 94
[2017-12-11] MEDS: GABAPENTIN 300 MG CAP PO SCH (20:58)
[2017-12-11] MEDS: HYDROmorphone HCL PF 2 MG/ML VIAL IV PUSH PRN (21:00)
[2017-12-12 00:38] VITALS: BP 162/79; PULSE 90; RESP 16; TEMP 98.3; O2SAT 96
[2017-12-12 04:36] VITALS: BP 164/80; PULSE 90; RESP 16; TEMP 97; O2SAT 96
[2017-12-12 08:56] VITALS: BP 122/68; PULSE 90; RESP 20; TEMP 98.2; O2SAT 96
[2017-12-12] MEDS: ENOXAPARIN SODIUM 60 MG/0.6 ML SYRINGE SQ SCH ×3 (09:00→20:32)
[2017-12-12] MEDS: DOCUSATE SODIUM 50 MG/SENNA 8.6 MG TAB PO SCH ×2 (09:22→20:32)
[2017-12-12] MEDS: SODIUM CHLORIDE 0.9% FLUSH 10 ML FLUSH IV FLUSH SCH ×2 (09:23→20:31)
[2017-12-12] MEDS: ACETAMINOPHEN 325 MG TAB PO PRN (10:44)
[2017-12-12] MEDS: HYDROmorphone HCL PF 2 MG/ML VIAL IV PUSH PRN ×4 (11:10→23:52)
--- NOTE | 2017-12-12 11:19 | HHI.PR ---
Subjective Remarks Pt complains of a lot of pain in the LUE but she has not received any IV pain meds since last night Pt was given po Tylenol this morning No BM but + flatus Objective Vitals Vital Signs Date Time Temp Pulse Resp B/P (MAP) Pulse Ox O2 Delivery O2 Flow Rate FiO2 12/12/17 08:56 98.2 90 20 122/68 (86) 96 12/12/17 04:36 97.0 90 16 164/80 (108) 96 12/12/17 00:38 98.3 90 16 162/79 (106) 96 12/11/17 20:06 98.6 86 17 112/63 (79) 94 12/11/17 14:59 98.4 84 16 171/79 (109) 97 Result Diagram: 12/11/17 0545 12/11/17 0545 Other Results Laboratory Tests Test 12/10/17 18:40 12/11/17 05:45 White Blood Count 5.1 TH/MM3 4.5 TH/MM3 Red Blood Count 2.95 MIL/MM3 2.76 MIL/MM3 Hemoglobin 10.8 GM/DL 10.0 GM/DL Hematocrit 31.1 % 29.4 % Mean Corpuscular Volume 105.5 FL 106.3 FL Mean Corpuscular Hemoglobin 36.6 PG 36.1 PG Mean Corpuscular Hemoglobin Concent 34.6 % 34.0 % Red Cell Distribution Width 14.1 % 14.6 % Platelet Count 289 TH/MM3 280 TH/MM3 Mean Platelet Volume 6.7 FL 7.5 FL Neutrophils (%) (Auto) 74.6 % 57.8 % Lymphocytes (%) (Auto) 9.6 % 17.1 % Monocytes (%) (Auto) 12.9 % 19.7 % Eosinophils (%) (Auto) 2.1 % 4.6 % Basophils (%) (Auto) 0.8 % 0.8 % Neutrophils # (Auto) 3.8 TH/MM3 2.6 TH/MM3 Lymphocytes # (Auto) 0.5 TH/MM3 0.8 TH/MM3 Monocytes # (Auto) 0.7 TH/MM3 0.9 TH/MM3 Eosinophils # (Auto) 0.1 TH/MM3 0.2 TH/MM3 Basophils # (Auto) 0.0 TH/MM3 0.0 TH/MM3 CBC Comment DIFF FINAL DIFF FINAL Differential Comment Prothrombin Time 13.4 SEC Prothromb Time International Ratio 1.3 RATIO Activated Partial Thromboplast Time 35.0 SEC Blood Urea Nitrogen 19 MG/DL 17 MG/DL Creatinine 1.13 MG/DL 0.89 MG/DL Random Glucose 106 MG/DL 79 MG/DL Total Protein 6.9 GM/DL Albumin 3.2 GM/DL Calcium Level 9.0 MG/DL 8.4 MG/DL Alkaline Phosphatase 96 U/L Aspartate Amino Transf (AST/SGOT) 28 U/L Alanine Aminotransferase (ALT/SGPT) 16 U/L Total Bilirubin 0.3 MG/DL Sodium Level 135 MEQ/L 135 MEQ/L Potassium Level 4.2 MEQ/L 4.2 MEQ/L Chloride Level 98 MEQ/L 101 MEQ/L Carbon Dioxide Level 30.0 MEQ/L 26.6 MEQ/L Anion Gap 7 MEQ/L 7 MEQ/L Estimat Glomerular Filtration Rate 46 ML/MIN 61 ML/MIN Imaging Last Impressions Upper Extremity Ultrasound 12/10/17 1800 Signed Impressions: Service Date/Time: Sunday, December 10, 2017 20:06 - CONCLUSION: 1. 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 Daniel Boucher MD ADDENDUM: COMPARISON: US ARM LEFT VENOUS DOPPLER, July 10, 2017, 17:45. This examination was compared to the prior study from 07 10 2017. Currently, there is occlusive thrombus filling the left axillary artery. Previously blood flow was documented in the left axillary artery. Additionally, no blood flow is visualized in the left subclavian vein whereas on the prior study subclavian vein blood flow was documented. Findings suggest new or progression of the venous thrombosis in the left subclavian and axillary veins. Jose Manuel Schuster MD CT Angiography 12/10/17 1800 Signed Impressions: Service Date/Time: Sunday, December 10, 2017 19:33 - CONCLUSION: 1. Negative for pulmonary embolus. 2. Abnormal soft tissue in the left supraclavicular region surrounding the left common carotid artery status post radiation treatment when compared to CT from November 03. Slight decrease in tumor size since prior CT. 3. Parenchymal scarring upper left lung. No other consolidation or effusion. Daniel Boucher MD Objective Remarks General: NAD, AAOx3 Chest: CTA Cardiac: Regular Abd: +BS, soft ND/NT Ext: Swelling of the entire LUE A/P Problem List: (1) DVT (deep venous thrombosis) ICD Codes: I82.409 - Acute embolism and thrombosis of unspecified deep veins of unspecified lower extremity Status: Chronic Plan: LUE DVT Recurrent metastatic breast cancer Left axillary mass, neck mass Left arm paralysis Tumor invasion into the skin - Pt is an 82 y/o female with recurrent metastatic breast cancer, with left chest mass expanding into the neck region, and recently developed left arm paralysis and pain secondary to invasion of the mass into the brachial plexus. She follows with Dr. Grove. - Pt presented to the ED at [facility] [place] on 12/10/17 with complaints of worsening swelling to the LUE - Pt has known previous LUE DVT and has been on Xarelto for this. 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 She recently resumed radiation therapy - Left upper extremity US (12/10/17) --> This examination was compared to the prior study from 07/10/2017. Currently, there is occlusive thrombus filling the left axillary artery. Previously blood flow was documented in the left axillary artery. Additionally , no blood flow is visualized in the left subclavian vein whereas on the prior study subclavian vein blood flow was documented. Findings suggest new or progression of the venous thrombosis in the left subclavian and axillary veins. - CTA Chest (12/10/17) --> Negative for PE - Pts Xarelto was stopped at admission and pt was started on Lovenox 50mg Q12H - Appreciate consultation and recommendations from Oncology - Continue arm sling and pain control. Pt has been taking Methadone 20mg po daily and Fentanyl 25mcg at home. She had tried a high dose of Fentanyl in the past but this caused her to have vomiting. She states that she can't tolerate Morphine or Oxycodone - We will continue the Fentanyl and add Dilaudid 1mg IV Q3H which she received in the ED and tolerated well. HTN, benign - Pts home medications were held at admission due to low BP - Pt is normally on Losartan 100mg po daily and Procardia XL 60mg po daily - These can be resumed as BP allows, when her pain is increased her BP increases but with the pain meds her BP returns to normal - Will continue to monitor - Clonidine PRN Constipation - Cont. bowel regimen. (2) Metastatic breast cancer ICD Codes: C50.919 - Malignant neoplasm of unspecified site of unspecified female breast Status: Acute (3) Left upper extremity swelling ICD Codes: M79.89 - Other specified soft tissue disorders (4) Hypertension, benign ICD Codes: I10 - Essential (primary) hypertension Status: Chronic Assessment and Plan Patient examined. Assessment and plan formulated with Khushi Lester PA-C. I agree with the above. failed xarelto with extension of her thrombus....u/s was compared to old. discussed with dr Jimenez. would recommend continued lovenox q12hr dosing on fentanyl 25mcg and iv dilaudid prn. would try to increase fentanyl to 37.5mcg and wean dilaudid.pt reports oversedation with 50mgc fentanyl in past. Khushi Lester December 12, 2017 11:19 Jaime Gonzalez MD December 12, 2017 14:42
--- NOTE | 2017-12-12 12:07 | PD.ONC.PN ---
Subjective Subjective Remarks Afebrile She has just received something for pain and states that this is somewhat improved Hoping to be transferred to a regular room with a window No other acute complaints Not much of an appetite Objective Data Date Time Temp Pulse Resp B/P (MAP) Pulse Ox O2 Delivery O2 Flow Rate FiO2 12/12/17 11:52 18 12/12/17 11:52 18 12/12/17 08:56 98.2 90 20 122/68 (86) 96 12/12/17 04:36 97.0 90 16 164/80 (108) 96 12/12/17 00:38 98.3 90 16 162/79 (106) 96 12/11/17 20:06 98.6 86 17 112/63 (79) 94 12/11/17 14:59 98.4 84 16 171/79 (109) 97 Result Diagram: 12/11/1745 12/11/1745 Administered Medications Medications (Trade) Dose Ordered Sig/Leslie Route PRN Reason Start Time Stop Time Status Last Admin Dose Admin Enoxaparin Sodium (Lovenox Inj) 50 mg Q12HR SQ 12/10/17 22:00 12/12/17 09:24 Sodium Chloride (NS Flush) 2 ml BID IV FLUSH 12/11/17 09:00 12/12/17 09:23 Acetaminophen (Tylenol) 650 mg Q4H PRN PO TEMP > 100.4 12/10/17 22:30 12/12/17 10:44 Ondansetron HCl (Zofran Inj) 4 mg Q6H PRN IVP NAUSEA OR VOMITING 12/10/17 22:30 12/11/17 15:37 Senna/Docusate Sodium (Nina-Colace) 1 tab BID PO 12/10/17 22:30 12/12/17 09:22 Fentanyl (Duragesic 25 Mcg Patch.72 Hr) 1 patch Q72H T-DERMAL 12/10/17 23:00 12/10/17 23:24 Gabapentin (Neurontin) 600 mg HS PO 12/11/17 21:00 12/11/17 20:58 Lorazepam (Ativan) 0.5 mg HS PRN PO ANXIETY AND/OR INSOMNIA 12/10/17 22:45 12/11/17 04:13 Miscellaneous Information 1 Q72H T-DERMAL 12/10/17 23:00 12/10/17 23:00 Clonidine (Catapres) 0.1 mg Q6H PRN PO SBP>170, DBP>90 12/11/17 15:30 12/11/17 15:37 Hydromorphone HCl (Dilaudid Pf Inj) 1 mg Q3HR PRN IV PUSH pain 3-10 12/11/17 17:00 12/12/17 11:10 Objective Remarks GENERAL: Frail-appearing elderly female resting in bed. She appears comfortable at the moment. SKIN: Warm and dry. HEAD: Normocephalic. EYES: No injection or drainage. NECK: Supple, trachea midline. CARDIOVASCULAR: Regular rate and rhythm without murmurs. RESPIRATORY: Clear anteriorly. Breathing unlabored at rest. GASTROINTESTINAL: Abdomen soft, non-tender, nondistended. EXTREMITIES: No cyanosis. Significant left upper extremity edema into the left neck NEUROLOGICAL: No obvious focal deficit. Awake, alert, and oriented x3. Assessment/Plan Assessment 82-year-old female with triple negative breast cancer admitted with unbearable left upper arm pain Plan Await radiation therapy consult. Continue current pain medications as ordered. If her pain remains not controlled with current regimen we can increase the fentanyl patch to 50 mcg. Continue Lovenox injections for extensive DVT in the left arm. Attending Statement The exam, history, and the medical decision-making described in the above note were completed with the assistance of the mid-level provider. I reviewed and agree with the findings presented. I attest that I had a [id number] encounter with the patient on the same day, and personally performed and documented my assessment and findings in the medical record. exam is unchanged and no movement of left arm. resume radiation as soon as possible and will need to find systemic treatment as disease extending beyond radiation field. pain well controlled. Sharifa Tariq December 12, 2017 12:07 Jaime Jimenez MD December 12, 2017 14:54
[2017-12-12] MEDS: GABAPENTIN 300 MG CAP PO SCH (20:32)
[2017-12-12 21:35] VITALS: BP 139/77; PULSE 81; RESP 16; TEMP 98.3; O2SAT 96
[2017-12-13] VITALS (7 sets, daily range): BP systolic 128–166; BP diastolic 65–90; PULSE 77–85; RESP 16–18; TEMP 97.7–98.6; O2SAT 95–98
[2017-12-13 04:29] LABS: AUTOMATED NEUTROPHIL # 1.9 TH/MM3 (1.8-7.7); BASOPHIL % 0.7 % (0.0-2.0); EOSINOPHIL # 0.3 TH/MM3 (0-0.4); HEMATOCRIT 28.8 % (35.0-46.0); HEMOGLOBIN 9.8 GM/DL (11.6-15.3); LYMPH % 23.3 % (9.0-44.0); LYMPHOCYTE # 0.9 TH/MM3 (1.0-4.8); MEAN CELL VOLUME 107.2 FL (80.0-100.0); MEAN CORPUSCULAR HEMOGLOBIN 36.5 PG (27.0-34.0); MEAN PLATELET VOLUME 7.1 FL (7.0-11.0); MONO % 20.6 % (0.0-8.0); MONOCYTE # 0.8 TH/MM3 (0-0.9); NEUT % 47.4 % (16.0-70.0); PLATELET COUNT 253 TH/MM3 (150-450); RED BLOOD COUNT 2.69 MIL/MM3 (4.00-5.30); RED CELL DISTRIBUTION WIDTH 13.9 % (11.6-17.2)
[2017-12-13 04:51] LABS: BICARBONATE 32.4 MEQ/L (21.0-32.0); CALCIUM 8.6 MG/DL (8.5-10.1); CREATININE 0.92 MG/DL (0.50-1.00); MAGNESIUM 2.2 MG/DL (1.5-2.5)
[2017-12-13] MEDS: HYDROmorphone HCL PF 2 MG/ML VIAL IV PUSH PRN ×3 (05:54→14:46)
--- NOTE | 2017-12-13 08:23 | HHI.PR ---
Subjective Remarks Pt reports that her pain is better controlled with the IV Dilaudid She had a small BM yesterday Tolerating oral intake Objective Vitals Vital Signs Date Time Temp Pulse Resp B/P (MAP) Pulse Ox O2 Delivery O2 Flow Rate FiO2 12/13/17 07:20 98.4 82 18 145/77 (99) 95 12/13/17 05:20 98.6 84 17 141/65 (90) 96 12/13/17 01:08 98.1 85 16 139/68 (91) 97 12/12/17 21:35 98.3 81 16 139/77 (97) 96 12/12/17 15:48 20 12/12/17 11:52 18 12/12/17 08:56 98.2 90 20 122/68 (86) 96 Result Diagram: 12/13/17 0403 12/13/17 0403 Other Results Laboratory Tests Test 12/13/17 04:03 White Blood Count 4.0 TH/MM3 Red Blood Count 2.69 MIL/MM3 Hemoglobin 9.8 GM/DL Hematocrit 28.8 % Mean Corpuscular Volume 107.2 FL Mean Corpuscular Hemoglobin 36.5 PG Mean Corpuscular Hemoglobin Concent 34.0 % Red Cell Distribution Width 13.9 % Platelet Count 253 TH/MM3 Mean Platelet Volume 7.1 FL Neutrophils (%) (Auto) 47.4 % Lymphocytes (%) (Auto) 23.3 % Monocytes (%) (Auto) 20.6 % Eosinophils (%) (Auto) 8.0 % Basophils (%) (Auto) 0.7 % Neutrophils # (Auto) 1.9 TH/MM3 Lymphocytes # (Auto) 0.9 TH/MM3 Monocytes # (Auto) 0.8 TH/MM3 Eosinophils # (Auto) 0.3 TH/MM3 Basophils # (Auto) 0.0 TH/MM3 CBC Comment DIFF FINAL Differential Comment Blood Urea Nitrogen 16 MG/DL Creatinine 0.92 MG/DL Random Glucose 87 MG/DL Calcium Level 8.6 MG/DL Magnesium Level 2.2 MG/DL Sodium Level 137 MEQ/L Potassium Level 4.2 MEQ/L Chloride Level 100 MEQ/L Carbon Dioxide Level 32.4 MEQ/L Anion Gap 5 MEQ/L Estimat Glomerular Filtration Rate 59 ML/MIN Imaging Last Impressions Upper Extremity Ultrasound 12/10/17 1800 Signed Impressions: Service Date/Time: Sunday, December 10, 2017 20:06 - CONCLUSION: 1. 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 Daniel Boucher MD ADDENDUM: COMPARISON: US ARM LEFT VENOUS DOPPLER, July 10, 2017, 17:45. This examination was compared to the prior study from 07 10 2017. Currently, there is occlusive thrombus filling the left axillary artery. Previously blood flow was documented in the left axillary artery. Additionally, no blood flow is visualized in the left subclavian vein whereas on the prior study subclavian vein blood flow was documented. Findings suggest new or progression of the venous thrombosis in the left subclavian and axillary veins. Jose Manuel Schuster MD CT Angiography 12/10/17 1800 Signed Impressions: Service Date/Time: Sunday, December 10, 2017 19:33 - CONCLUSION: 1. Negative for pulmonary embolus. 2. Abnormal soft tissue in the left supraclavicular region surrounding the left common carotid artery status post radiation treatment when compared to CT from November 03. Slight decrease in tumor size since prior CT. 3. Parenchymal scarring upper left lung. No other consolidation or effusion. Daniel Boucher MD Objective Remarks General: NAD, AAOx3 Chest: CTA Cardiac: Regular Abd: +BS, soft ND/NT Ext: Swelling of the entire LUE A/P Problem List: (1) DVT (deep venous thrombosis) ICD Codes: I82.409 - Acute embolism and thrombosis of unspecified deep veins of unspecified lower extremity Status: Chronic Plan: LUE DVT Recurrent metastatic breast cancer Left axillary mass, neck mass Left arm paralysis - Pt is an 82 y/o female with recurrent metastatic breast cancer, with left chest mass expanding into the neck region, and recently developed left arm paralysis and pain secondary to invasion of the mass into the brachial plexus. She follows with Dr. Grove. - Pt presented to the ED at [facility] [place] on 12/10/17 with complaints of worsening swelling to the LUE - Pt has known previous LUE DVT and has been on Xarelto for this. 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 She recently resumed radiation therapy - Left upper extremity US (12/10/17) --> This examination was compared to the prior study from 07/10/2017. Currently, there is occlusive thrombus filling the left axillary artery. Previously blood flow was documented in the left axillary artery. Additionally , no blood flow is visualized in the left subclavian vein whereas on the prior study subclavian vein blood flow was documented. Findings suggest new or progression of the venous thrombosis in the left subclavian and axillary veins. - CTA Chest (12/10/17) --> Negative for PE - Pts Xarelto was stopped at admission and pt was started on Lovenox 50mg Q12H - Appreciate consultation and recommendations from Oncology - Continue arm sling and pain control. Pt has been taking Methadone 20mg po daily and Fentanyl 25mcg at home. She had tried a high dose of Fentanyl in the past but this caused her to have vomiting. She states that she can't tolerate Morphine or Oxycodone - We will continue the Fentanyl and add Dilaudid 1mg IV Q3H which she received in the ED and tolerated well. - Pt had previously been started on Valtrex for presumed shingles. Oncology felt that this was not shingles and was tumor invasion on the skin and stopped the Valtrex during this admission. - PT/OT eval HTN, benign - Pts home medications were held at admission due to low BP - Pt is normally on Losartan 100mg po daily and Procardia XL 60mg po daily - These can be resumed as BP allows, when her pain is increased her BP increases but with the pain meds her BP returns to normal - Will continue to monitor - Clonidine PRN Constipation - Cont. bowel regimen. (2) Metastatic breast cancer ICD Codes: C50.919 - Malignant neoplasm of unspecified site of unspecified female breast Status: Acute (3) Left upper extremity swelling ICD Codes: M79.89 - Other specified soft tissue disorders (4) Hypertension, benign ICD Codes: I10 - Essential (primary) hypertension Status: Chronic Assessment and Plan Patient examined. Assessment and plan formulated with Khushi Lester PA-C. I agree with the above. Khushi Lester December 13, 2017 08:23 Luis Marcelino DO December 14, 2017 21:48
[2017-12-13] MEDS: SODIUM CHLORIDE 0.9% FLUSH 10 ML FLUSH IV FLUSH SCH ×2 (09:38→21:47)
[2017-12-13] MEDS: DOCUSATE SODIUM 50 MG/SENNA 8.6 MG TAB PO SCH ×2 (09:38→21:32)
[2017-12-13] MEDS: ENOXAPARIN SODIUM 60 MG/0.6 ML SYRINGE SQ SCH (09:38)
[2017-12-13] MEDS ORDERED: METHADONE HCL 10 MG TAB PO SCH (11:00)
[2017-12-13] MEDS: ONDANSETRON HCL 4 MG/2 ML VIAL IVP PRN ×2 (11:56→14:53)
[2017-12-13] MEDS: MAGNESIUM HYDROXIDE SUSP 30 ML CUP PO PRN (11:56)
[2017-12-13] MEDS ORDERED: HYDROmorphone HCL PF 0.5 MG/0.5 ML SYRINGE IV PUSH STA (14:39)
--- NOTE | 2017-12-13 14:56 | PD.ONC.PN ---
Subjective Subjective Remarks Afebrile overnight. Patient resting in bed, complaining of continued pain in the left arm. Waiting to go to radiation, she is concerned the pain will be too great. she is also having nausea. Objective Data Date Time Temp Pulse Resp B/P (MAP) Pulse Ox O2 Delivery O2 Flow Rate FiO2 12/13/17 14:10 98.4 81 16 166/90 (115) 98 12/13/17 11:52 98.2 77 18 160/78 (105) 97 12/13/17 07:20 98.4 82 18 145/77 (99) 95 12/13/17 05:20 98.6 84 17 141/65 (90) 96 12/13/17 01:08 98.1 85 16 139/68 (91) 97 12/12/17 21:35 98.3 81 16 139/77 (97) 96 12/12/17 15:48 20 Result Diagram: 12/13/17 0403 12/13/17 0403 Laboratory Results Laboratory Tests Test 12/13/17 04:03 White Blood Count 4.0 TH/MM3 Red Blood Count 2.69 MIL/MM3 Hemoglobin 9.8 GM/DL Hematocrit 28.8 % Mean Corpuscular Volume 107.2 FL Mean Corpuscular Hemoglobin 36.5 PG Mean Corpuscular Hemoglobin Concent 34.0 % Red Cell Distribution Width 13.9 % Platelet Count 253 TH/MM3 Mean Platelet Volume 7.1 FL Neutrophils (%) (Auto) 47.4 % Lymphocytes (%) (Auto) 23.3 % Monocytes (%) (Auto) 20.6 % Eosinophils (%) (Auto) 8.0 % Basophils (%) (Auto) 0.7 % Neutrophils # (Auto) 1.9 TH/MM3 Lymphocytes # (Auto) 0.9 TH/MM3 Monocytes # (Auto) 0.8 TH/MM3 Eosinophils # (Auto) 0.3 TH/MM3 Basophils # (Auto) 0.0 TH/MM3 CBC Comment DIFF FINAL Differential Comment Blood Urea Nitrogen 16 MG/DL Creatinine 0.92 MG/DL Random Glucose 87 MG/DL Calcium Level 8.6 MG/DL Magnesium Level 2.2 MG/DL Sodium Level 137 MEQ/L Potassium Level 4.2 MEQ/L Chloride Level 100 MEQ/L Carbon Dioxide Level 32.4 MEQ/L Anion Gap 5 MEQ/L Estimat Glomerular Filtration Rate 59 ML/MIN Administered Medications Medications (Trade) Dose Ordered Sig/Leslie Route PRN Reason Start Time Stop Time Status Last Admin Dose Admin Enoxaparin Sodium (Lovenox Inj) 50 mg Q12HR SQ 12/10/17 22:00 12/13/17 09:38 Sodium Chloride (NS Flush) 2 ml BID IV FLUSH 12/11/17 09:00 12/13/17 09:38 Acetaminophen (Tylenol) 650 mg Q4H PRN PO TEMP > 100.4 12/10/17 22:30 12/12/17 10:44 Ondansetron HCl (Zofran Inj) 4 mg Q6H PRN IVP NAUSEA OR VOMITING 12/10/17 22:30 12/13/17 11:56 Senna/Docusate Sodium (Nina-Colace) 1 tab BID PO 12/10/17 22:30 12/13/17 09:38 Magnesium Hydroxide (Milk Of Magnesia Liq) 30 ml Q12H PRN PO Mild constipation 12/10/17 22:30 12/13/17 11:56 Fentanyl (Duragesic 25 Mcg Patch.72 Hr) 1 patch Q72H T-DERMAL 12/10/17 23:00 12/10/17 23:24 Gabapentin (Neurontin) 600 mg HS PO 12/11/17 21:00 12/12/17 20:32 Lorazepam (Ativan) 0.5 mg HS PRN PO ANXIETY AND/OR INSOMNIA 12/10/17 22:45 12/11/17 04:13 Miscellaneous Information 1 Q72H T-DERMAL 12/10/17 23:00 12/10/17 23:00 Clonidine (Catapres) 0.1 mg Q6H PRN PO SBP>170, DBP>90 12/11/17 15:30 12/11/17 15:37 Hydromorphone HCl (Dilaudid Pf Inj) 1 mg Q3HR PRN IV PUSH pain 3-10 12/11/17 17:00 12/13/17 09:39 Methadone HCl (Dolophine) 20 mg DAILY PO 12/13/17 11:00 12/13/17 11:56 Objective Remarks GENERAL: pleasant elderly female, sitting up in bed SKIN: Warm and dry. HEAD: Normocephalic. EYES: No injection or drainage. NECK: Supple, trachea midline. CARDIOVASCULAR: Regular rate and rhythm RESPIRATORY: Breath sounds equal bilaterally. No accessory muscle use. GASTROINTESTINAL: Abdomen soft, non-tender, nondistended. EXTREMITIES: No cyanosis. + edema, left upper extremity NEUROLOGICAL: awake and alert. normal speech. Assessment/Plan Assessment 82-year-old female with triple negative breast cancer admitted with unbearable left upper arm pain Plan 1. give one time dose of Dilaudid 1mg IV x 1 now. 2. continue Methadone + Fentanyl TD and breakthrough IV dilaudid PRN 3. Radiation simulation today 4. continue supportive care. Attending Statement The exam, history, and the medical decision-making described in the above note were completed with the assistance of the mid-level provider. I reviewed and agree with the findings presented. I attest that I had a [id number] encounter with the patient on the same day, and personally performed and documented my assessment and findings in the medical record. PT seen and examined. Local disease progression, new skin lesions, now hard nodular like. Noted events over the weekend. Discussed trial of Lovenox as anticoagulant. Plan for home care to teach her how to inject. Nausea this evening, did not tolerate the methadone. Give lorazepam. Round the clock anti emetic. Retching no vomiting. Jeanine Bright December 13, 2017 14:56 Mary Grove MD December 13, 2017 19:37
[2017-12-13] MEDS ORDERED: LORazepam 2 MG/ML VIAL IV PUSH ONE (19:45)
[2017-12-13] MEDS: GABAPENTIN 300 MG CAP PO SCH (21:32)
[2017-12-13] MEDS: fentaNYL 25 MCG/HR PATCH T-DERMAL SCH (21:36)
[2017-12-13] MEDS: REMOVE OLD FENTANYL PATCH T-DERMAL SCH (21:36)
[2017-12-14] VITALS (11 sets, daily range): BP systolic 124–166; BP diastolic 73–88; PULSE 77–117; RESP 16–20; TEMP 97.9–98.9; O2SAT 94–100
[2017-12-14] MEDS: HYDROmorphone HCL PF 2 MG/ML VIAL IV PUSH PRN (06:15)
[2017-12-14] MEDS: DOCUSATE SODIUM 50 MG/SENNA 8.6 MG TAB PO SCH ×2 (08:09→20:09)
[2017-12-14] MEDS: SODIUM CHLORIDE 0.9% FLUSH 10 ML FLUSH IV FLUSH SCH ×2 (08:10→20:09)
[2017-12-14] MEDS: ENOXAPARIN SODIUM 80 MG/0.8 ML SYRINGE SQ SCH (08:10)
[2017-12-14] MEDS: MAGNESIUM HYDROXIDE SUSP 30 ML CUP PO PRN (08:32)
--- NOTE | 2017-12-14 09:28 | PD.ONC.PN ---
Subjective Subjective Remarks Afebrile overnight. patient resting in bed. states pain is controlled with q 3 hours IV dilaudid. tolerated first radiation yesterday. Objective Data Date Time Temp Pulse Resp B/P (MAP) Pulse Ox O2 Delivery O2 Flow Rate FiO2 12/14/17 04:04 85 12/14/17 04:00 98.6 87 16 166/83 (110) 97 12/14/17 00:38 98.7 81 16 161/79 (106) 97 12/13/17 21:41 97.7 85 16 149/72 (97) 96 12/13/17 16:02 98.4 77 17 128/85 (99) 98 12/13/17 14:10 98.4 81 16 166/90 (115) 98 12/13/17 11:52 98.2 77 18 160/78 (105) 97 Result Diagram: 12/13/1740212/13/17402 Administered Medications Medications (Trade) Dose Ordered Sig/Leslie Route PRN Reason Start Time Stop Time Status Last Admin Dose Admin Sodium Chloride (NS Flush) 2 ml BID IV FLUSH 12/11/17 09:00 12/14/17 08:10 Acetaminophen (Tylenol) 650 mg Q4H PRN PO TEMP > 100.4 12/10/17 22:30 12/12/17 10:44 Ondansetron HCl (Zofran Inj) 4 mg Q6H PRN IVP NAUSEA OR VOMITING 12/10/17 22:30 12/13/17 14:53 Senna/Docusate Sodium (Nina-Colace) 1 tab BID PO 12/10/17 22:30 12/14/17 08:09 Magnesium Hydroxide (Milk Of Magnesia Liq) 30 ml Q12H PRN PO Mild constipation 12/10/17 22:30 12/14/17 08:32 Fentanyl (Duragesic 25 Mcg Patch.72 Hr) 1 patch Q72H T-DERMAL 12/10/17 23:00 12/13/17 21:36 Gabapentin (Neurontin) 600 mg HS PO 12/11/17 21:00 12/13/17 21:32 Miscellaneous Information 1 Q72H T-DERMAL 12/10/17 23:00 12/13/17 21:36 Clonidine (Catapres) 0.1 mg Q6H PRN PO SBP>170, DBP>90 12/11/17 15:30 12/11/17 15:37 Hydromorphone HCl (Dilaudid Pf Inj) 1 mg Q3HR PRN IV PUSH pain 3-10 12/11/17 17:00 12/14/17 06:15 Enoxaparin Sodium (Lovenox Inj) 80 mg DAILY SQ 12/14/17 09:00 12/14/17 08:10 Objective Remarks GENERAL: pleasant elderly female, upright in bed watching TV SKIN: Warm and dry. HEAD: Normocephalic. EYES: No injection or drainage. NECK: Supple, trachea midline. CARDIOVASCULAR: Regular rate and rhythm RESPIRATORY: Breath sounds equal bilaterally. No accessory muscle use. GASTROINTESTINAL: Abdomen soft, non-tender, nondistended. EXTREMITIES: No cyanosis. LUE edema. NEUROLOGICAL: awake and alert. normal speech. Assessment/Plan Assessment 82-year-old female with triple negative breast cancer admitted with unbearable left upper arm pain Plan 1. trial PO dilaudid for breakthrough 2. continue Fentanyl 3. continue XRT today. Attending Statement The exam, history, and the medical decision-making described in the above note were completed with the assistance of the mid-level provider. I reviewed and agree with the findings presented. I attest that I had a [id number] encounter with the patient on the same day, and personally performed and documented my assessment and findings in the medical record. Pt seen and examined. More comfortable but vomited post XRT. Discussed w/ Dr. Hoover, appear to be responding to XRT but new skin nodules noted. Plan to start Lymparza. Cont pain regimen, ready to start small dose of methadone. Cont lorazepam. Consider DC on Wednesday after XRT. Home care to teach injection. Jeanine Bright December 14, 2017 09:28 Mary Grove MD December 14, 2017 18:10
[2017-12-14] MEDS ORDERED: HYDROmorphone HCL 4 MG TAB PO ONE (09:30)
[2017-12-14] MEDS ORDERED: HYDROmorphone HCL 2 MG TAB PO ONE ×2 (09:30→10:15)
[2017-12-14] MEDS ORDERED: HYDROmorphone HCL PF 0.5 MG/0.5 ML SYRINGE IV PUSH PRN (12:30)
[2017-12-14] MEDS: HYDROmorphone HCL 4 MG TAB PO PRN ×2 (15:46→20:09)
--- NOTE | 2017-12-14 16:20 | PD.CONS ---
History of Present Illness Service Radiation oncology Consult Requested By Mary FULTON Reason for Consult Patient being evaluated for continuation of care Primary Care Physician Keke Chapa MD Diagnoses: History of Present Illness 82-year-old white female diagnosis of metastatic progressive breast carcinoma. Patient being evaluated for continuation of care. Patient admitted due to intractable pain and hematologic issues. Discussed this case with Dr. Fulton. Review of Systems Constitutional: DENIES: Diaphoretic episodes, Fatigue, Fever, Weight gain, Weight loss, Chills, Dizziness, Change in appetite, Night Sweats Endocrine: DENIES: Abnorml menstrual pattern, Heat/cold intolerance, Polydipsia , Polyuria, Polyphagia Eyes: DENIES: Blurred vision, Diplopia, Eye inflammation, Eye pain, Vision loss , Photosensitivity, Double Vision Ears, nose, mouth, throat: DENIES: Tinnitus, Hearing loss, Vertigo, Nasal discharge, Oral lesions, Throat pain, Hoarseness, Ear Pain, Running Nose, Epistaxis, Sinus Pain, Toothache, Odynophagia Respiratory: DENIES: Apneas, Cough, Snoring, Wheezing, Hemoptysis, Sputum production, Shortness of breath Cardiovascular: DENIES: Chest pain, Palpitations, Syncope, Dyspnea on Exertion , PND, Lower Extremity Edema, Orthopnea, Claudication Gastrointestinal: DENIES: Abdominal pain, Black stools, Bloody stools, Constipation, Diarrhea, Nausea, Vomiting, Difficulty Swallowing, Anorexia Genitourinary: DENIES: Abnormal vaginal bleeding, Dysmenorrhea, Dyspareunia, Sexual dysfunction, Urinary frequency, Urinary incontinence, Urgency, Hematuria , Dysuria, Nocturia, Vaginal discharge Musculoskeletal: COMPLAINS OF: Joint pain, Muscle aches, Stiffness, Neck pain, DENIES: Joint Swelling, Back pain Integumentary: COMPLAINS OF: Abnormal pigmentation, DENIES: Pruritus, Rash, Nail changes, Breast masses, Breast skin changes, Nipple discharge Hematologic/lymphatic: COMPLAINS OF: Bruising, Lymphadenopathy Immunologic/allergic: DENIES: Eczema, Urticaria Neurologic: DENIES: Abnormal gait, Headache, Localized weakness, Paresthesias, Seizures, Speech Problems, Tremor, Poor Balance Psychiatric: DENIES: Anxiety, Confusion, Mood changes, Depression, Hallucinations, Agitation, Suicidal Ideation, Homicidal Ideation, Delusions Patient with new skin lesions left shoulder and left axillary area suspicious for recurrent carcinoma involving the skin Past Family Social History Allergies: Coded Allergies: meperidine (Verified Allergy, Severe, Irritability/Anxiety, 12/10/17) morphine (Verified Allergy, Severe, Irritability/Anxiety, 12/10/17) oxycodone (Verified Allergy, Severe, ANXIETY, 12/10/17) Past Medical History As previously recorded in the electronic medical record Past Surgical History As previous recorded in the electronic medical records Reported Medications Current Medications Iohexol (Omnipaque 350 Inj) 75 ml STK-MED ONCE IVCONTRAST Last administered on 12/10/17 19:39; Start 12/10/17 at 19:39; Stop 12/10/17 at 19:40; Status DC Hydromorphone HCl (Dilaudid Pf Inj) 1 mg ONCE ONCE IV PUSH Last administered on 12/10/17 20:27; Start 12/10/17 at 20:30; Stop 12/10/17 at 20:31; Status DC Enoxaparin Sodium (Lovenox Inj) 50 mg Q12HR SQ Last administered on 12/13/17 09 :38; Start 12/10/17 at 22:00; Stop 12/13/17 at 19:41; Status DC Sodium Chloride (NS Flush) 2 ml UNSCH PRN IV FLUSH FLUSH AFTER USING IV ACCESS ; Start 12/10/17 at 22:30 Sodium Chloride (NS Flush) 2 ml BID IV FLUSH Last administered on 12/14/17 08: 10; Start 12/11/17 at 09:00 Acetaminophen (Tylenol) 650 mg Q4H PRN PO TEMP > 100.4 Last administered on 12/12 10:44; Start 12/10/17 at 22:30 Ondansetron HCl (Zofran Inj) 4 mg Q6H PRN IVP NAUSEA OR VOMITING Last administered on 12/13/17 14:53; Start 12/10/17 at 22:30 Naloxone HCl (Narcan Inj) 0.4 mg UNSCH PRN IV PUSH SEE LABEL COMMENTS; Start at 22:30 Senna/Docusate Sodium (Nina-Colace) 1 tab BID PO Last administered on 12/14/17 08:09; Start 12/10/17 at 22:30 Magnesium Hydroxide (Milk Of Magnesia Liq) 30 ml Q12H PRN PO Mild constipation Last administered on 12/14/17 08:32; Start 12/10/17 at 22:30 Sennosides (Senokot) 17.2 mg Q12H PRN PO Moderate constipation; Start 12/10/17 at 22:30 Bisacodyl (Dulcolax Supp) 10 mg DAILY PRN RECTAL SEVERE CONSITIPATION; Start at 22:30 Lactulose (Lactulose Liq) 30 ml DAILY PRN PO SEVERE CONSITIPATION; Start at 22:30 Fentanyl (Duragesic 25 Mcg Patch.72 Hr) 1 patch Q72H T-DERMAL Last administered on 12/13/17 21:36; Start 12/10/17 at 23:00 Gabapentin (Neurontin) 600 mg HS PO Last administered on 12/13/17 21:32; Start 12/11/17 at 21:00 Lorazepam (Ativan) 0.5 mg HS PRN PO ANXIETY AND/OR INSOMNIA Last administered on 12/11/17 04:13; Start 12/10/17 at 22:45; Stop 12/13/17 at 19:41; Status DC Methadone HCl (Dolophine) 20 mg DAILY PO ; Start 12/11/17 at 09:00; Stop 12/11/17 at 09:00; Status DC Valacyclovir HCl (Valtrex) 1,000 mg TID PO Last administered on 12/11/17 13:00 ; Start 12/11/17 at 09:00; Stop 12/11/17 at 16:52; Status DC Miscellaneous Information 1 Q72H T-DERMAL Last administered on 12/13/17at 21:36; Start 12/10/17 at 23:00 Methadone HCl (Dolophine) 20 mg NOW ONCE PO Last administered on 12/11/17 06: 33; Start 12/11/17 at 06:30; Stop 12/11/17 at 06:32; Status DC Hydromorphone HCl (Dilaudid Pf Inj) 1 mg ONCE ONCE IV PUSH Last administered on 12/11/17at 15:37; Start 12/11/17 at 15:15; Stop 12/11/17 at 15:19; Status DC Hydromorphone HCl (Dilaudid Pf Inj) 1 mg Q4H PRN IV PUSH pain 3-10; Start at 15:15; Stop 12/11/17 at 16:52; Status DC Clonidine (Catapres) 0.1 mg Q6H PRN PO SBP>170, DBP>90 Last administered on 12/11at 15:37; Start 12/11/17 at 15:30 Hydromorphone HCl (Dilaudid Pf Inj) 1 mg Q3HR PRN IV PUSH breakthrough pain Last administered on 12/14/17at 06:15; Start 12/11/17 at 17:00; Stop 12/14/17 at 12: 24; Status DC Methadone HCl (Dolophine) 20 mg DAILY PO Last administered on 12/13/17at 11:56; Start 12/13/17 at 11:00; Stop 12/13/17 at 19:41; Status DC Hydromorphone HCl (Dilaudid Pf Inj) 1 mg STAT STAT IV PUSH ; Start 12/13/17 at 14:39; Stop 12/13/17 at 14:43; Status DC Lorazepam (Ativan Inj) 0.5 mg NOW ONCE IV PUSH Last administered on 12/13/17at 19:48; Start 12/13/17 at 19:45; Stop 12/13/17 at 19:46; Status DC Enoxaparin Sodium (Lovenox Inj) 80 mg DAILY SQ Last administered on 12/14/17at 08 :10; Start 12/14/17 at 09:00 Lorazepam (Ativan Inj) 0.5 mg Q6H PRN IV PUSH nausea/anxiety; Start 12/13/17 at 19:45 Hydromorphone HCl (Dilaudid) 2 mg ONCE ONCE PO ; Start 12/14/17 at 09:30; Stop 12/14/17 at 09:30; Status DC Hydromorphone HCl (Dilaudid) 4 mg ONCE ONCE PO ; Start 12/14/17 at 09:30; Stop 12/14/17 at 09:52; Status DC Hydromorphone HCl (Dilaudid) 4 mg ONCE ONCE PO Last administered on 12/14/17at 10:42; Start 12/14/17 at 10:15; Stop 12/14/17 at 10:16; Status DC Hydromorphone HCl (Dilaudid) 4 mg Q4H PRN PO pain1-10 Last administered on at 15:46; Start 12/14/17 at 12:15 Hydromorphone HCl (Dilaudid Pf Inj) 1 mg Q3HR PRN IV PUSH breakthrough pain; Start 12/14/17 at 12:30 Active Ordered Medications As above Family History History is recorded in the electronic medical record Social History History is recorded in electronic medical record Radiology Remarks Last Impressions Upper Extremity Ultrasound 12/10/17 1800 Signed Impressions: Service Date/Time: Sunday, December 10, 2017 20:06 - CONCLUSION: 1. 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 Daniel Boucher MD ADDENDUM: COMPARISON: US ARM LEFT VENOUS DOPPLER, July 10, 2017, 17:45. This examination was compared to the prior study from 07 10 2017. Currently, there is occlusive thrombus filling the left axillary artery. Previously blood flow was documented in the left axillary artery. Additionally, no blood flow is visualized in the left subclavian vein whereas on the prior study subclavian vein blood flow was documented. Findings suggest new or progression of the venous thrombosis in the left subclavian and axillary veins. Jose Manuel Schuster MD CT Angiography 12/10/17 1800 Signed Impressions: Service Date/Time: Sunday, December 10, 2017 19:33 - CONCLUSION: 1. Negative for pulmonary embolus. 2. Abnormal soft tissue in the left supraclavicular region surrounding the left common carotid artery status post radiation treatment when compared to CT from November 03. Slight decrease in tumor size since prior CT. 3. Parenchymal scarring upper left lung. No other consolidation or effusion. Daniel Boucher MD Assessment & Plan Remarks Assessment: 82-year-old white female with diagnosis of metastatic progressive breast carcinoma Plan: Case has been discussed with Dr. FULTON as well as with her hospitalist, at this point will continue to move forward with radiation therapy for palliation to the left neck. We have made some adjustments to the facemask and the patient is noticed as painful as before. She is able to tolerate treatments. I have discussed the new skin lesions with [facility] and systemic therapy will be started soon. Patient advised that I could be of any further assistance and to please let me know otherwise we will proceed as above. Patient was in agreement to continue to move forward part of her therapy to her left neck Chacho Perales MD December 14, 2017 16:20
--- NOTE | 2017-12-14 17:29 | HHI.PR ---
Subjective Remarks Pt had a BM this morning She could not tolerate the Methadone yesterday, caused increased nausea and dry heaves Pain is better controlled currently Tolerating oral intake Objective Vitals Vital Signs Date Time Temp Pulse Resp B/P (MAP) Pulse Ox O2 Delivery O2 Flow Rate FiO2 12/14/17 11:34 97.9 89 16 144/79 (100) 95 12/14/17 08:30 98.9 84 16 124/88 (100) 94 12/14/17 04:04 85 12/14/17 04:00 98.6 87 16 166/83 (110) 97 12/14/17 00:38 98.7 81 16 161/79 (106) 97 12/13/17 21:41 97.7 85 16 149/72 (97) 96 Result Diagram: 12/13/1740212/13/173 Other Results Laboratory Tests Test 12/13/17 04:03 White Blood Count 4.0 TH/MM3 Red Blood Count 2.69 MIL/MM3 Hemoglobin 9.8 GM/DL Hematocrit 28.8 % Mean Corpuscular Volume 107.2 FL Mean Corpuscular Hemoglobin 36.5 PG Mean Corpuscular Hemoglobin Concent 34.0 % Red Cell Distribution Width 13.9 % Platelet Count 253 TH/MM3 Mean Platelet Volume 7.1 FL Neutrophils (%) (Auto) 47.4 % Lymphocytes (%) (Auto) 23.3 % Monocytes (%) (Auto) 20.6 % Eosinophils (%) (Auto) 8.0 % Basophils (%) (Auto) 0.7 % Neutrophils # (Auto) 1.9 TH/MM3 Lymphocytes # (Auto) 0.9 TH/MM3 Monocytes # (Auto) 0.8 TH/MM3 Eosinophils # (Auto) 0.3 TH/MM3 Basophils # (Auto) 0.0 TH/MM3 CBC Comment DIFF FINAL Differential Comment Blood Urea Nitrogen 16 MG/DL Creatinine 0.92 MG/DL Random Glucose 87 MG/DL Calcium Level 8.6 MG/DL Magnesium Level 2.2 MG/DL Sodium Level 137 MEQ/L Potassium Level 4.2 MEQ/L Chloride Level 100 MEQ/L Carbon Dioxide Level 32.4 MEQ/L Anion Gap 5 MEQ/L Estimat Glomerular Filtration Rate 59 ML/MIN Imaging Last Impressions Upper Extremity Ultrasound 12/10/17 1800 Signed Impressions: Service Date/Time: Sunday, December 10, 2017 20:06 - CONCLUSION: 1. 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 Daniel Boucher MD ADDENDUM: COMPARISON: US ARM LEFT VENOUS DOPPLER, July 10, 2017, 17:45. This examination was compared to the prior study from 07 10 2017. Currently, there is occlusive thrombus filling the left axillary artery. Previously blood flow was documented in the left axillary artery. Additionally, no blood flow is visualized in the left subclavian vein whereas on the prior study subclavian vein blood flow was documented. Findings suggest new or progression of the venous thrombosis in the left subclavian and axillary veins. Jose Manuel Scuhster MD CT Angiography 12/10/17 1800 Signed Impressions: Service Date/Time: Sunday, December 10, 2017 19:33 - CONCLUSION: 1. Negative for pulmonary embolus. 2. Abnormal soft tissue in the left supraclavicular region surrounding the left common carotid artery status post radiation treatment when compared to CT from November 03. Slight decrease in tumor size since prior CT. 3. Parenchymal scarring upper left lung. No other consolidation or effusion. Daniel Boucher MD Objective Remarks General: NAD, AAOx3 Chest: CTA Cardiac: Regular Abd: +BS, soft ND/NT Ext: Swelling of the entire LUE A/P Problem List: (1) DVT (deep venous thrombosis) ICD Codes: I82.409 - Acute embolism and thrombosis of unspecified deep veins of unspecified lower extremity Status: Chronic Plan: LUE DVT Recurrent metastatic breast cancer Left axillary mass, neck mass Left arm paralysis - Pt is an 82 y/o female with recurrent metastatic breast cancer, with left chest mass expanding into the neck region, and recently developed left arm paralysis and pain secondary to invasion of the mass into the brachial plexus. She follows with Dr. Grove. 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 She recently resumed radiation therapy - Left upper extremity US (12/10/17) --> This examination was compared to the prior study from 07/10/2017. Currently, there is occlusive thrombus filling the left axillary artery. Previously blood flow was documented in the left axillary artery. Additionally , no blood flow is visualized in the left subclavian vein whereas on the prior study subclavian vein blood flow was documented. Findings suggest new or progression of the venous thrombosis in the left subclavian and axillary veins. - CTA Chest (12/10/17) --> Negative for PE - Pts Xarelto was stopped at admission and pt was started on Lovenox 50mg Q12H - Appreciate consultation and recommendations from Oncology - Pt recommended to continued Lovenox 80mg daily as anticoagulant. - Plan for home care to teach her how to inject. - Continue arm sling and pain control. Pt has been taking Methadone 20mg po daily and Fentanyl 25mcg at home. She had tried a high dose of Fentanyl in the past but this caused her to have vomiting. She states that she can't tolerate Morphine or Oxycodone - We will continue the Fentanyl and add Dilaudid 1mg IV Q3H which she received in the ED and tolerated well. - Methadone was resumed on 12/13 but pt unable to tolerate this and began having more nausea/dry heaving - Methadone stopped, pt started on Dilaudid 4mg PO q4h and will continued on Fentanyl 25mcg and IV Dilaudid for breakthrough - Antiemetics PRN - Ativan IV PRN - Pt had previously been started on Valtrex for presumed shingles. Oncology felt that this was not shingles and was tumor invasion on the skin and stopped the Valtrex during this admission. - Radiation Oncology consulted on 12/13 and pt was resumed on XRT therapy - Medical and Radiation Oncology are following. - PT/OT - Cont. bowel regimen. (2) Metastatic breast cancer ICD Codes: C50.919 - Malignant neoplasm of unspecified site of unspecified female breast Status: Acute Plan: - See above (3) Left upper extremity swelling ICD Codes: M79.89 - Other specified soft tissue disorders Plan: - See above (4) Hypertension, benign ICD Codes: I10 - Essential (primary) hypertension Status: Chronic Plan: - Pts home medications were held at admission due to low BP - Pt is normally on Losartan 100mg po daily and Procardia XL 60mg po daily - BP has been fluctuating likely related to pain - Continue to monitor - Clonidine PRN Assessment and Plan Patient examined. Assessment and plan formulated with Khushi Lester PA-C. I agree with the above. Anticoagulation changed to lovenox 80mg subQ daily. Pt c/o nausea with methadone. Methadone decreased to 2.5mg daily Pt to continue fentanyl transdermal 25mcg q3d Dilaudid 4mg PO q4h prn. If pain is adequately controlled, then hopefully d/c to home 12/17/17 following Radiation Therapy. Khushi Lester December 14, 2017 17:29 Luis Marcelino DO December 14, 2017 22:10
[2017-12-14] MEDS ORDERED: PILL SPLITTER OTHER PRN (18:30)
[2017-12-14] MEDS: METHADONE HCL 10 MG TAB PO SCH (19:05)
[2017-12-14] MEDS: GABAPENTIN 300 MG CAP PO SCH (20:09)
[2017-12-15] VITALS (11 sets, daily range): BP systolic 134–169; BP diastolic 62–86; PULSE 77–89; RESP 16–20; TEMP 97.8–98.9; O2SAT 95–98
[2017-12-15] MEDS: HYDROmorphone HCL 4 MG TAB PO PRN ×5 (00:31→20:56)
[2017-12-15 08:34] LABS: AUTOMATED NEUTROPHIL # 1.9 TH/MM3 (1.8-7.7); BASOPHIL % 0.7 % (0.0-2.0); EOSINOPHIL # 0.2 TH/MM3 (0-0.4); EOSINOPHIL % 5.5 % (0.0-4.0); HEMATOCRIT 28.1 % (35.0-46.0); HEMOGLOBIN 9.7 GM/DL (11.6-15.3); LYMPH % 20.3 % (9.0-44.0); LYMPHOCYTE # 0.7 TH/MM3 (1.0-4.8); MEAN CELL VOLUME 105.4 FL (80.0-100.0); MEAN CORPUSCULAR HEMOGLOBIN 36.2 PG (27.0-34.0); MEAN CORPUSCULAR HGB CONC 34.4 % (32.0-36.0); MEAN PLATELET VOLUME 7.2 FL (7.0-11.0); MONO % 20.5 % (0.0-8.0); MONOCYTE # 0.8 TH/MM3 (0-0.9); PLATELET COUNT 253 TH/MM3 (150-450); RED BLOOD COUNT 2.67 MIL/MM3 (4.00-5.30); RED CELL DISTRIBUTION WIDTH 14.2 % (11.6-17.2); WHITE BLOOD COUNT 3.7 TH/MM3 (4.0-11.0)
[2017-12-15] MEDS: SODIUM CHLORIDE 0.9% FLUSH 10 ML FLUSH IV FLUSH SCH ×2 (09:28→20:59)
[2017-12-15] MEDS: ENOXAPARIN SODIUM 80 MG/0.8 ML SYRINGE SQ SCH (09:28)
[2017-12-15] MEDS: METHADONE HCL 10 MG TAB PO SCH (09:29)
[2017-12-15] MEDS: DOCUSATE SODIUM 50 MG/SENNA 8.6 MG TAB PO SCH ×2 (09:29→20:56)
--- NOTE | 2017-12-15 10:31 | PD.ONC.PN ---
Subjective Subjective Remarks Afebrile Pt reports her pain is worse today She reports it feels different after getting the radiation yesterday Wants to go home but doesn't quite feel ready Objective Data Date Time Temp Pulse Resp B/P (MAP) Pulse Ox O2 Delivery O2 Flow Rate FiO2 12/15/17 09:00 98.7 89 18 151/70 (97) 95 12/15/17 07:30 16 12/15/17 05:38 98.4 84 19 134/66 (88) 97 12/15/17 01:55 16 12/15/17 00:26 97.8 82 20 169/86 (113) 98 12/14/17 23:00 85 12/14/17 20:05 16 12/14/17 20:03 98.4 84 20 139/73 (95) 97 12/14/17 20:01 84 12/14/17 15:45 98.1 77 16 164/80 (108) 100 12/14/17 15:00 117 12/14/17 11:34 97.9 89 16 144/79 (100) 95 Result Diagram: 12/15/17 0800 12/13/17 0403 Laboratory Results Laboratory Tests Test 12/15/17 08:00 White Blood Count 3.7 TH/MM3 Red Blood Count 2.67 MIL/MM3 Hemoglobin 9.7 GM/DL Hematocrit 28.1 % Mean Corpuscular Volume 105.4 FL Mean Corpuscular Hemoglobin 36.2 PG Mean Corpuscular Hemoglobin Concent 34.4 % Red Cell Distribution Width 14.2 % Platelet Count 253 TH/MM3 Mean Platelet Volume 7.2 FL Neutrophils (%) (Auto) 53.0 % Lymphocytes (%) (Auto) 20.3 % Monocytes (%) (Auto) 20.5 % Eosinophils (%) (Auto) 5.5 % Basophils (%) (Auto) 0.7 % Neutrophils # (Auto) 1.9 TH/MM3 Lymphocytes # (Auto) 0.7 TH/MM3 Monocytes # (Auto) 0.8 TH/MM3 Eosinophils # (Auto) 0.2 TH/MM3 Basophils # (Auto) 0.0 TH/MM3 CBC Comment DIFF FINAL Differential Comment Administered Medications Medications (Trade) Dose Ordered Sig/Leslie Route PRN Reason Start Time Stop Time Status Last Admin Dose Admin Sodium Chloride (NS Flush) 2 ml BID IV FLUSH 12/11/17 09:00 12/15/17 09:28 Acetaminophen (Tylenol) 650 mg Q4H PRN PO TEMP > 100.4 12/10/17 22:30 12/12/17 10:44 Ondansetron HCl (Zofran Inj) 4 mg Q6H PRN IVP NAUSEA OR VOMITING 12/10/17 22:30 12/13/17 14:53 Senna/Docusate Sodium (Nina-Colace) 1 tab BID PO 12/10/17 22:30 12/15/17 09:29 Magnesium Hydroxide (Milk Of Magnesia Liq) 30 ml Q12H PRN PO Mild constipation 12/10/17 22:30 12/14/17 08:32 Fentanyl (Duragesic 25 Mcg Patch.72 Hr) 1 patch Q72H T-DERMAL 12/10/17 23:00 12/13/17 21:36 Gabapentin (Neurontin) 600 mg HS PO 12/11/17 21:00 12/14/17 20:09 Miscellaneous Information 1 Q72H T-DERMAL 12/10/17 23:00 12/13/17 21:36 Clonidine (Catapres) 0.1 mg Q6H PRN PO SBP>170, DBP>90 12/11/17 15:30 12/11/17 15:37 Enoxaparin Sodium (Lovenox Inj) 80 mg DAILY SQ 12/14/17 09:00 12/15/17 09:28 Hydromorphone HCl (Dilaudid) 4 mg Q4H PRN PO pain1-10 12/14/17 12:15 12/15/17 06:34 Hydromorphone HCl (Dilaudid Pf Inj) 1 mg Q3HR PRN IV PUSH breakthrough pain 12/14/17 12:30 12/15/17 01:27 Methadone HCl (Dolophine) 2.5 mg DAILY PO 12/14/17 18:15 12/15/17 09:29 Objective Remarks GENERAL: Pleasant elderly female, upright in bed watching TV SKIN: Warm and dry. HEAD: Normocephalic. EYES: No injection or drainage. NECK: Supple, trachea midline. CARDIOVASCULAR: Regular rate and rhythm RESPIRATORY: Breath sounds equal bilaterally. No accessory muscle use. GASTROINTESTINAL: Abdomen soft, non-tender, nondistended. EXTREMITIES: No cyanosis. Significant LUE edema, inability to move L upper arm NEUROLOGICAL: Awake and alert. normal speech. Assessment/Plan Assessment 82-year-old female with triple negative breast cancer admitted with unbearable left upper arm pain Plan 1. Increase IV Dilaudid to 1.5mg q3H for reports of worsening pain. 2. Continue Fentanyl, po Dilaudid for breakthrough pain as well as small dose of methadone for long-acting control. 3. Begin Lynparza today for metastatic breast cancer. Attending Statement The exam, history, and the medical decision-making described in the above note were completed with the assistance of the mid-level provider. I reviewed and agree with the findings presented. I attest that I had a [id number] encounter with the patient on the same day, and personally performed and documented my assessment and findings in the medical record. Discomfort from L ARM, soft collar apparently was not helpful over the weekend. Consider wrapping the arm/lymph edema treatment. Start Lynparza sample sent to pharmacy, we will start and monitor response from tumor noted L arm skin nodules, concerning for metastatic local progression. Pain medication methadone titrated slowly. XRT planned this afternoon. Sharifa Tariq December 15, 2017 10:31 Mary Grove MD December 15, 2017 17:33
[2017-12-15] MEDS ORDERED: HYDROmorphone HCL PF 2 MG/ML VIAL IV PUSH PRN (11:00)
[2017-12-15] MEDS: ONDANSETRON HCL 4 MG/2 ML VIAL IVP PRN (12:24)
--- NOTE | 2017-12-15 14:32 | HHI.PR ---
Subjective Remarks Patient returning from radiation treatment Objective Vitals Vital Signs Date Time Temp Pulse Resp B/P (MAP) Pulse Ox O2 Delivery O2 Flow Rate FiO2 12/15/17 09:00 98.7 89 18 151/70 (97) 95 12/15/17 07:30 16 12/15/17 05:38 98.4 84 19 134/66 (88) 97 12/15/17 01:55 16 12/15/17 00:26 97.8 82 20 169/86 (113) 98 12/14/17 23:00 85 12/14/17 20:05 16 12/14/17 20:03 98.4 84 20 139/73 (95) 97 12/14/17 20:01 84 12/14/17 15:45 98.1 77 16 164/80 (108) 100 12/14/17 15:00 117 Result Diagram: 12/15/17 0800 12/13/17 0403 Other Results Laboratory Tests Test 12/13/17 04:03 12/15/17 08:00 White Blood Count 4.0 TH/MM3 3.7 TH/MM3 Red Blood Count 2.69 MIL/MM3 2.67 MIL/MM3 Hemoglobin 9.8 GM/DL 9.7 GM/DL Hematocrit 28.8 % 28.1 % Mean Corpuscular Volume 107.2 FL 105.4 FL Mean Corpuscular Hemoglobin 36.5 PG 36.2 PG Mean Corpuscular Hemoglobin Concent 34.0 % 34.4 % Red Cell Distribution Width 13.9 % 14.2 % Platelet Count 253 TH/MM3 253 TH/MM3 Mean Platelet Volume 7.1 FL 7.2 FL Neutrophils (%) (Auto) 47.4 % 53.0 % Lymphocytes (%) (Auto) 23.3 % 20.3 % Monocytes (%) (Auto) 20.6 % 20.5 % Eosinophils (%) (Auto) 8.0 % 5.5 % Basophils (%) (Auto) 0.7 % 0.7 % Neutrophils # (Auto) 1.9 TH/MM3 1.9 TH/MM3 Lymphocytes # (Auto) 0.9 TH/MM3 0.7 TH/MM3 Monocytes # (Auto) 0.8 TH/MM3 0.8 TH/MM3 Eosinophils # (Auto) 0.3 TH/MM3 0.2 TH/MM3 Basophils # (Auto) 0.0 TH/MM3 0.0 TH/MM3 CBC Comment DIFF FINAL DIFF FINAL Differential Comment Blood Urea Nitrogen 16 MG/DL Creatinine 0.92 MG/DL Random Glucose 87 MG/DL Calcium Level 8.6 MG/DL Magnesium Level 2.2 MG/DL Sodium Level 137 MEQ/L Potassium Level 4.2 MEQ/L Chloride Level 100 MEQ/L Carbon Dioxide Level 32.4 MEQ/L Anion Gap 5 MEQ/L Estimat Glomerular Filtration Rate 59 ML/MIN Imaging Last Impressions Upper Extremity Ultrasound 12/10/17 1800 Signed Impressions: Service Date/Time: Sunday, December 10, 2017 20:06 - CONCLUSION: 1. 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 Daniel Boucher MD ADDENDUM: COMPARISON: US ARM LEFT VENOUS DOPPLER, July 10, 2017, 17:45. This examination was compared to the prior study from 07 10 2017. Currently, there is occlusive thrombus filling the left axillary artery. Previously blood flow was documented in the left axillary artery. Additionally, no blood flow is visualized in the left subclavian vein whereas on the prior study subclavian vein blood flow was documented. Findings suggest new or progression of the venous thrombosis in the left subclavian and axillary veins. Jose Manuel Schuster MD CT Angiography 12/10/17 1800 Signed Impressions: Service Date/Time: Sunday, December 10, 2017 19:33 - CONCLUSION: 1. Negative for pulmonary embolus. 2. Abnormal soft tissue in the left supraclavicular region surrounding the left common carotid artery status post radiation treatment when compared to CT from November 03. Slight decrease in tumor size since prior CT. 3. Parenchymal scarring upper left lung. No other consolidation or effusion. Daniel Boucher MD Objective Remarks General: NAD, AAOx3 Chest: CTA Cardiac: Regular Abd: +BS, soft ND/NT Ext: Swelling of the entire LUE A/P Problem List: (1) DVT (deep venous thrombosis) ICD Codes: I82.409 - Acute embolism and thrombosis of unspecified deep veins of unspecified lower extremity Status: Chronic Plan: LUE DVT Recurrent metastatic breast cancer Left axillary mass, neck mass Left arm paralysis - Pt is an 82 y/o female with recurrent metastatic breast cancer, with left chest mass expanding into the neck region, and recently developed left arm paralysis and pain secondary to invasion of the mass into the brachial plexus. She follows with Dr. Grove. - Pt presented to the [place] [facility] [place] with complaints of worsening swelling to the LUE - Pt has known previous LUE DVT and has been on Xarelto for this. 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 She recently resumed radiation therapy - Left upper extremity US (12/10/17) --> This examination was compared to the prior study from 07/10/2017. Currently, there is occlusive thrombus filling the left axillary artery. Previously blood flow was documented in the left axillary artery. Additionally , no blood flow is visualized in the left subclavian vein whereas on the prior study subclavian vein blood flow was documented. Findings suggest new or progression of the venous thrombosis in the left subclavian and axillary veins. - CTA Chest (12/10/17) --> Negative for PE - Pts Xarelto was stopped at admission and pt was started on Lovenox 50mg Q12H - Appreciate consultation and recommendations from Oncology - Pt recommended to continued Lovenox 80mg daily as anticoagulant. - Plan for home care to teach her how to inject. - Continue arm sling and pain control. Pt has been taking Methadone 20mg po daily and Fentanyl 25mcg at home. She had tried a high dose of Fentanyl in the past but this caused her to have vomiting. She states that she can't tolerate Morphine or Oxycodone - We will continue the Fentanyl and add Dilaudid 1mg IV Q3H which she received in the ED and tolerated well. - Methadone was resumed on 12/13 but pt unable to tolerate this and began having more nausea/dry heaving - Patient also on Dilaudid 4mg PO q4h and will continued on Fentanyl 25mcg and IV Dilaudid for breakthrough - (12/15) Earlier today Oncology had increased Dilaudid to 1.5 mg IV. Discussed pain management with patient and oncology [employer] Sharifa Maloney. Agreed to return to Dilaudid 1 mg IV as needed for breakthrough pain. Goal to wean off IV Dilaudid - Antiemetics PRN - Ativan IV PRN - Pt had previously been started on Valtrex for presumed shingles. Oncology felt that this was not shingles and was tumor invasion on the skin and stopped the Valtrex during this admission. - Radiation Oncology consulted on 12/13 and pt was resumed on XRT therapy - Medical and Radiation Oncology are following. - PT/OT - Cont. bowel regimen. - If pain is adequately controlled, hopefully d/c to home 12/17/17 following Radiation Therapy. (2) Metastatic breast cancer ICD Codes: C50.919 - Malignant neoplasm of unspecified site of unspecified female breast Status: Acute Plan: - See above (3) Left upper extremity swelling ICD Codes: M79.89 - Other specified soft tissue disorders Plan: - See above (4) Hypertension, benign ICD Codes: I10 - Essential (primary) hypertension Status: Chronic Plan: - Pts home medications were held at admission due to low BP - Pt is normally on Losartan 100mg po daily and Procardia XL 60mg po daily - BP has been fluctuating likely related to pain - Continue to monitor - Clonidine PRN Assessment and Plan Patient examined. Assessment and plan formulated with Carla Wetzel PA-C. I agree with the above. Pt having a lot of difficulties with ADLs d/t LUE weakness and pain management. Pt will require prolonged anticoagulation with SubQ lovenox Consider d/c to SNF. Will place referral. Carla Wetzel December 15, 2017 14:32 Luis Marcelino DO December 15, 2017 15:07
[2017-12-15] MEDS ORDERED: HYDROmorphone HCL PF 0.5 MG/0.5 ML SYRINGE IV PUSH PRN (15:30)
[2017-12-15] MEDS: GABAPENTIN 300 MG CAP PO SCH (20:57)
[2017-12-15] MEDS: OLAPARIB PO SCH (20:57)
[2017-12-16] VITALS (7 sets, daily range): BP systolic 132–176; BP diastolic 69–81; PULSE 80–93; RESP 16–18; TEMP 97.4–98.6; O2SAT 96–98
[2017-12-16] MEDS: METHADONE HCL 10 MG TAB PO SCH (08:49)
[2017-12-16] MEDS: HYDROmorphone HCL 4 MG TAB PO PRN ×3 (08:49→20:00)
[2017-12-16] MEDS: MAGNESIUM HYDROXIDE SUSP 30 ML CUP PO PRN (09:26)
[2017-12-16] MEDS: OLAPARIB PO SCH ×2 (09:27→20:00)
[2017-12-16] MEDS: ENOXAPARIN SODIUM 80 MG/0.8 ML SYRINGE SQ SCH (09:27)
[2017-12-16] MEDS: SODIUM CHLORIDE 0.9% FLUSH 10 ML FLUSH IV FLUSH SCH ×2 (09:36→20:01)
[2017-12-16] MEDS: DOCUSATE SODIUM 50 MG/SENNA 8.6 MG TAB PO SCH ×2 (09:36→20:00)
--- NOTE | 2017-12-16 09:54 | HHI.FF ---
Face to Face Verification Diagnosis: (1) Metastatic breast cancer (2) Left upper extremity swelling (3) DVT (deep venous thrombosis) (4) Hypertension, benign Physical Therapy Order: Evaluate and Treat, Improve ambulation, Strength and gait training Occupational Therapy Order: Evaluate and Treat, Improve ADL, Gross motor coordination Instructions: Evaluate and treat for LUE weakness/paralysis d/t metastatic breast cancer Home Health Nursing Order: Medical education Signs/symptoms of disease process Medication education-adverse effect Nursing assessment with vital signs I have seen patient Jeri Whaley on 12/16/17. My clinical findings support the need for the requested home health care services because: Ltd mobility - disease progression Deconditioned w/ increased weakness Med compliance is questionable Limited ability to care for self Need for psychosocial assistance High risk of falls I certify that my clinical findings support that this patient is homebound because: Impaired cognitive ability/safety Unsteady gait/balance Unsafe to leave home unassisted Need for psychosocial assistance Unable to use public transportation Luis Marcelino DO December 16, 2017 09:54
--- NOTE | 2017-12-16 10:05 | PD.ONC.PN ---
Subjective Subjective Remarks Afebrile overnight. patient resting in bed in nad. Had some nausea last night. Pain is much better controlled with Methadone, Fentanyl and PO dilaudid. Objective Data Date Time Temp Pulse Resp B/P (MAP) Pulse Ox O2 Delivery O2 Flow Rate FiO2 12/16/17 04:59 98.6 87 17 162/81 (108) 98 12/16/17 00:17 98.6 85 16 139/76 (97) 98 12/15/17 23:30 87 12/15/17 21:56 16 12/15/17 20:55 Nasal Cannula 2.00 12/15/17 20:05 79 12/15/17 19:46 97.9 78 16 169/81 (110) 97 12/15/17 17:30 98.9 84 18 134/62 (86) 97 12/15/17 16:57 77 12/15/17 12:15 98.3 86 18 163/77 (105) 97 12/15/17 12:00 82 12/15/17 12:00 97 Room Air 12/15/17 10:29 18 Result Diagram: 12/15/17 0800 12/13/17 0403 Administered Medications Medications (Trade) Dose Ordered Sig/Leslie Route PRN Reason Start Time Stop Time Status Last Admin Dose Admin Sodium Chloride (NS Flush) 2 ml BID IV FLUSH 12/11/17 09:00 12/16/17 09:36 Acetaminophen (Tylenol) 650 mg Q4H PRN PO TEMP > 100.4 12/10/17 22:30 12/12/17 10:44 Ondansetron HCl (Zofran Inj) 4 mg Q6H PRN IVP NAUSEA OR VOMITING 12/10/17 22:30 12/15/17 12:24 Senna/Docusate Sodium (Nina-Colace) 1 tab BID PO 12/10/17 22:30 12/16/17 09:36 Magnesium Hydroxide (Milk Of Magnesia Liq) 30 ml Q12H PRN PO Mild constipation 12/10/17 22:30 12/16/17 09:26 Fentanyl (Duragesic 25 Mcg Patch.72 Hr) 1 patch Q72H T-DERMAL 12/10/17 23:00 12/13/17 21:36 Gabapentin (Neurontin) 600 mg HS PO 5/5/18 21:00 12/15/17 20:57 Miscellaneous Information 1 Q72H T-DERMAL 12/10/17 23:00 12/13/17 21:36 Clonidine (Catapres) 0.1 mg Q6H PRN PO SBP>170, DBP>90 12/11/17 15:30 12/11/17 15:37 Enoxaparin Sodium (Lovenox Inj) 80 mg DAILY SQ 12/14/17 09:00 12/16/17 09:27 Hydromorphone HCl (Dilaudid) 4 mg Q4H PRN PO pain1-10 12/14/17 12:15 12/16/17 08:49 Methadone HCl (Dolophine) 2.5 mg DAILY PO 12/14/17 18:15 12/16/17 08:49 Patient Own Medication LYNPARZA (OLAPARIB) 150MG... BID PO 12/15/17 15:30 Future hold 12/16/17 09:27 Objective Remarks GENERAL: pleasant elderly female, sitting up in bed. she appears comfortable and in nad. SKIN: Warm and dry. HEAD: Normocephalic. EYES: No injection or drainage. NECK: Supple, trachea midline. CARDIOVASCULAR: Regular rate and rhythm RESPIRATORY: Breath sounds equal bilaterally. No accessory muscle use. GASTROINTESTINAL: Abdomen soft, non-tender, nondistended. EXTREMITIES: No cyanosis. NEUROLOGICAL: awake, alert. normal speech. moving extremities. Assessment/Plan Assessment 82-year-old female with triple negative breast cancer admitted with unbearable left upper arm pain Plan 1. continue Lynparza 2. continue Fentanyl, Methadone and Dilaudid 3. ok to d/c when pain and nausea controlled. Attending Statement The exam, history, and the medical decision-making described in the above note were completed with the assistance of the mid-level provider. I reviewed and agree with the findings presented. I attest that I had a [id number] encounter with the patient on the same day, and personally performed and documented my assessment and findings in the medical record. Discussed w/ primary team, anticipate DC after XRT tomorrow. Follow up in clinic next week. Tolerating Lynparza, no nausea or vomiting attributed to drug. Optimize methadone. Pending sling today. Discussed w/ nursing try wrapping arm for comfort. Jeanine Bright December 16, 2017 10:05 Mary Grove MD December 16, 2017 16:54
[2017-12-16] MEDS: LORazepam 2 MG/ML VIAL IV PUSH PRN (11:14)
--- NOTE | 2017-12-16 15:36 | HHI.PR ---
Subjective Remarks Offers no new concerns/complaints has not required IV Dilaudid today less painful today Objective Vitals Vital Signs Date Time Temp Pulse Resp B/P (MAP) Pulse Ox O2 Delivery O2 Flow Rate FiO2 12/16/17 14:38 87 12/16/17 13:00 97 Room Air 12/16/17 13:00 98.4 86 18 132/77 (95) 97 12/16/17 09:49 18 12/16/17 09:49 18 12/16/17 08:00 96 Room Air 12/16/17 08:00 97.4 93 18 96 12/16/17 04:59 98.6 87 17 162/81 (108) 98 12/16/17 00:17 98.6 85 16 139/76 (97) 98 12/15/17 23:30 87 12/15/17 20:55 Nasal Cannula 2.00 12/15/17 20:05 79 12/15/17 19:46 97.9 78 16 169/81 (110) 97 12/15/17 17:30 98.9 84 18 134/62 (86) 97 12/15/17 16:57 77 Result Diagram: 12/15/17 0800 12/13/17 0403 Other Results Laboratory Tests Test 12/15/17 08:00 White Blood Count 3.7 TH/MM3 Red Blood Count 2.67 MIL/MM3 Hemoglobin 9.7 GM/DL Hematocrit 28.1 % Mean Corpuscular Volume 105.4 FL Mean Corpuscular Hemoglobin 36.2 PG Mean Corpuscular Hemoglobin Concent 34.4 % Red Cell Distribution Width 14.2 % Platelet Count 253 TH/MM3 Mean Platelet Volume 7.2 FL Neutrophils (%) (Auto) 53.0 % Lymphocytes (%) (Auto) 20.3 % Monocytes (%) (Auto) 20.5 % Eosinophils (%) (Auto) 5.5 % Basophils (%) (Auto) 0.7 % Neutrophils # (Auto) 1.9 TH/MM3 Lymphocytes # (Auto) 0.7 TH/MM3 Monocytes # (Auto) 0.8 TH/MM3 Eosinophils # (Auto) 0.2 TH/MM3 Basophils # (Auto) 0.0 TH/MM3 CBC Comment DIFF FINAL Differential Comment Imaging Last Impressions Upper Extremity Ultrasound 12/10/17 1800 Signed Impressions: Service Date/Time: Sunday, December 10, 2017 20:06 - CONCLUSION: 1. 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 Daniel Boucher MD ADDENDUM: COMPARISON: US ARM LEFT VENOUS DOPPLER, July 10, 2017, 17:45. This examination was compared to the prior study from 07 10 2017. Currently, there is occlusive thrombus filling the left axillary artery. Previously blood flow was documented in the left axillary artery. Additionally, no blood flow is visualized in the left subclavian vein whereas on the prior study subclavian vein blood flow was documented. Findings suggest new or progression of the venous thrombosis in the left subclavian and axillary veins. Jose Manuel Schuster MD CT Angiography 12/10/17 1800 Signed Impressions: Service Date/Time: Sunday, December 10, 2017 19:33 - CONCLUSION: 1. Negative for pulmonary embolus. 2. Abnormal soft tissue in the left supraclavicular region surrounding the left common carotid artery status post radiation treatment when compared to CT from November 03. Slight decrease in tumor size since prior CT. 3. Parenchymal scarring upper left lung. No other consolidation or effusion. Daniel Boucher MD Objective Remarks General: NAD, AAOx3 Chest: CTA Cardiac: Regular Abd: +BS, soft ND/NT Ext: Swelling of the entire LUE, sling in place A/P Problem List: (1) DVT (deep venous thrombosis) ICD Codes: I82.409 - Acute embolism and thrombosis of unspecified deep veins of unspecified lower extremity Status: Chronic Plan: LUE DVT Recurrent metastatic breast cancer Left axillary mass, neck mass Left arm paralysis - Pt is an 82 y/o female with recurrent metastatic breast cancer, with left chest mass expanding into the neck region, and recently developed left arm paralysis and pain secondary to invasion of the mass into the brachial plexus. She follows with Dr. Grove. - Pt presented to the ED at [facility] [place] on 12/10/17 with complaints of worsening swelling to the LUE - Pt has known previous LUE DVT and has been on Xarelto for this. 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 She recently resumed radiation therapy - Left upper extremity US (12/10/17) --> This examination was compared to the prior study from 07/10/2017. Currently, there is occlusive thrombus filling the left axillary artery. Previously blood flow was documented in the left axillary artery. Additionally , no blood flow is visualized in the left subclavian vein whereas on the prior study subclavian vein blood flow was documented. Findings suggest new or progression of the venous thrombosis in the left subclavian and axillary veins. - CTA Chest (12/10/17) --> Negative for PE - Pts Xarelto was stopped at admission and pt was started on Lovenox 50mg Q12H - Appreciate consultation and recommendations from Oncology - Pt recommended to continued Lovenox 80mg daily as anticoagulant. - Plan for home care to teach her how to inject. - Continue arm sling and pain control. Pt has been taking Methadone 20mg po daily and Fentanyl 25mcg at home. She had tried a high dose of Fentanyl in the past but this caused her to have vomiting. She states that she can't tolerate Morphine or Oxycodone - We will continue the Fentanyl and add Dilaudid 1mg IV Q3H which she received in the ED and tolerated well. - Methadone was resumed on 12/13 but pt unable to tolerate this and began having more nausea/dry heaving - Patient also on Dilaudid 4mg PO q4h and will continued on Fentanyl 25mcg and IV Dilaudid for breakthrough - (12/15) Earlier today Oncology had increased Dilaudid to 1.5 mg IV. Discussed pain management with patient and oncology GARETT Maloney. Agreed to return to Dilaudid 1 mg IV as needed for breakthrough pain. Goal to wean off IV Dilaudid - (12/16) patient less painful today has not required IV Dilaudid today - Antiemetics PRN - Ativan IV PRN - Pt had previously been started on Valtrex for presumed shingles. Oncology felt that this was not shingles and was tumor invasion on the skin and stopped the Valtrex during this admission. - Radiation Oncology consulted on 12/13 and pt was resumed on XRT therapy - Medical and Radiation Oncology are following. - PT/OT - Cont. bowel regimen. - If pain is adequately controlled, hopefully d/c to home 12/17/17 following Radiation Therapy. - Discussed SNF placement for short term rehab at time of DC. Patient met with case management yesterday and would prefer to go home with [facility] and home OT. (2) Metastatic breast cancer ICD Codes: C50.919 - Malignant neoplasm of unspecified site of unspecified female breast Status: Acute Plan: - See above (3) Left upper extremity swelling ICD Codes: M79.89 - Other specified soft tissue disorders Plan: - See above (4) Hypertension, benign ICD Codes: I10 - Essential (primary) hypertension Status: Chronic Plan: - Pts home medications were held at admission due to low BP - Pt is normally on Losartan 100mg po daily and Procardia XL 60mg po daily - BP has been fluctuating likely related to pain - Continue to monitor - Clonidine PRN Assessment and Plan Patient examined. Assessment and plan formulated with Carla Wetzel PA-C. I agree with the above. Case d/w Dr. Grove (12/16) Anticipate discharge to home 12/17/17 after radiation therapy. Carla Wetzel December 16, 2017 15:36 Luis Marcelino DO December 17, 2017 06:37
[2017-12-16] MEDS ORDERED: COLA100C5 PO (15:38)
[2017-12-16] MEDS ORDERED: ENOX80P SQ (15:38)
[2017-12-16] MEDS ORDERED: OLAP50CA PO (16:29)
[2017-12-16] MEDS ORDERED: OLAP150T PO (16:30)
--- NOTE | 2017-12-16 16:34 | HHI.DS ---
Discharge Summary Admission Date December 11, 2017 at 15:17 Discharge Date: December 17, 2017 Admitting Diagnosis DVT (1) DVT (deep venous thrombosis) ICD Codes: I82.409 - Acute embolism and thrombosis of unspecified deep veins of unspecified lower extremity Status: Chronic (2) Metastatic breast cancer ICD Codes: C50.919 - Malignant neoplasm of unspecified site of unspecified female breast Status: Acute (3) Left upper extremity swelling ICD Codes: M79.89 - Other specified soft tissue disorders (4) Hypertension, benign ICD Codes: I10 - Essential (primary) hypertension Status: Chronic Consultants Dr. Grove, Oncology Dr. Hoover, Radiation oncology Procedures radiation treatment Brief History This is a pleasant 82 yo female with metastatic breast cancer under the care of Dr. Grove who was sent to the ER [facility] for left arm swelling and suspicion of DVT in the arm. 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 Imaging tonight showed new DVT in left subclavian vein, axillary vein, and possibly jugular vein, CTA was negative for PE. She does have a left chest mass expanding into the neck region, and recently developed left arm paralysis and pain secondary to invasion of the mass into the brachial plexus. Patient denies shortness of breath. She does endorse left arm pain which is exquisite and worse with movement. She wears a sling. She also was recently started on valacyclovir for shingles affecting that arm. She is undergoing radiation therapy currently, and hopes to be started on chemo s/p radiation. She describes her functional status as good, denies any recent falls. Does endorse constipation. Denies any blood in stool. CBC/BMP: 12/15/17 0800 12/13/17 0403 Significant Findings Laboratory Tests Test 12/15/17 08:00 White Blood Count 3.7 TH/MM3 (4.0-11.0) Red Blood Count 2.67 MIL/MM3 (4.00-5.30) Hemoglobin 9.7 GM/DL (11.6-15.3) Hematocrit 28.1 % (35.0-46.0) Mean Corpuscular Volume 105.4 FL (80.0-100.0) Mean Corpuscular Hemoglobin 36.2 PG (27.0-34.0) Monocytes (%) (Auto) 20.5 % (0.0-8.0) Eosinophils (%) (Auto) 5.5 % (0.0-4.0) Lymphocytes # (Auto) 0.7 TH/MM3 (1.0-4.8) Imaging Last Impressions Upper Extremity Ultrasound 12/10/17 1800 Signed Impressions: Service Date/Time: Sunday, December 10, 2017 20:06 - CONCLUSION: 1. 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 Daniel Boucher MD ADDENDUM: COMPARISON: US ARM LEFT VENOUS DOPPLER, July 10, 2017, 17:45. This examination was compared to the prior study from 07 10 2017. Currently, there is occlusive thrombus filling the left axillary artery. Previously blood flow was documented in the left axillary artery. Additionally, no blood flow is visualized in the left subclavian vein whereas on the prior study subclavian vein blood flow was documented. Findings suggest new or progression of the venous thrombosis in the left subclavian and axillary veins. Jose Manuel Schuster MD CT Angiography 12/10/17 1800 Signed Impressions: Service Date/Time: Sunday, December 10, 2017 19:33 - CONCLUSION: 1. Negative for pulmonary embolus. 2. Abnormal soft tissue in the left supraclavicular region surrounding the left common carotid artery status post radiation treatment when compared to CT from November 03. Slight decrease in tumor size since prior CT. 3. Parenchymal scarring upper left lung. No other consolidation or effusion. Daniel Boucher MD PE at Discharge General: NAD, AAOx3 Chest: CTA Cardiac: Regular Abd: +BS, soft ND/NT Ext: Swelling of the entire [facility] Hospital Course LUE DVT Recurrent metastatic breast cancer Left axillary mass, neck mass Left arm paralysis - Pt is an 82 y/o female with recurrent metastatic breast cancer, with left chest mass expanding into the neck region, and recently developed left arm paralysis and pain secondary to invasion of the mass into the brachial plexus. She follows with Dr. Grove. - Pt presented to the ED at [facility] on 12/10/17 with complaints of worsening swelling to the LUE - Pt has known previous LUE DVT and has been on Xarelto for this. 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 She recently resumed radiation therapy - Left upper extremity US (12/10/17) --> This examination was compared to the prior study from 07/10/2017. Currently, there is occlusive thrombus filling the left axillary artery. Previously blood flow was documented in the left axillary artery. Additionally , no blood flow is visualized in the left subclavian vein whereas on the prior study subclavian vein blood flow was documented. Findings suggest new or progression of the venous thrombosis in the left subclavian and axillary veins. - CTA Chest (12/10/17) --> Negative for PE - Pts Xarelto was stopped at admission and pt was started on Lovenox 50mg Q12H - Appreciate consultation and recommendations from Oncology - Pt recommended to continued Lovenox 80mg daily as anticoagulant. - Plan for home care to teach her how to inject. - Continue arm sling and pain control. Pt has been taking Methadone 20mg po daily and Fentanyl 25mcg at home. She had tried a high dose of Fentanyl in the past but this caused her to have vomiting. She states that she can't tolerate Morphine or Oxycodone - We will continue the Fentanyl and add Dilaudid 1mg IV Q3H which she received in the ED and tolerated well. - Methadone was resumed on 12/13 but pt unable to tolerate this and began having more nausea/dry heaving - Patient also on Dilaudid 4mg PO q4h and will continued on Fentanyl 25mcg and IV Dilaudid for breakthrough - (12/15) Earlier today Oncology had increased Dilaudid to 1.5 mg IV. Discussed pain management with patient and oncology GARETT Maloney. Agreed to return to Dilaudid 1 mg IV as needed for breakthrough pain. Goal to wean off IV Dilaudid - (12/16) patient less painful today has not required IV Dilaudid today - Antiemetics PRN - Ativan IV PRN - Pt had previously been started on Valtrex for presumed shingles. Oncology felt that this was not shingles and was tumor invasion on the skin and stopped the Valtrex during this admission. - Radiation Oncology consulted on 12/13 and pt was resumed on XRT therapy - Medical and Radiation Oncology are following. - PT/OT - Cont. bowel regimen. - If pain is adequately controlled, hopefully d/c to home 12/17/17 following Radiation Therapy. - Discussed SNF placement for short term rehab at time of DC. Patient met with case management yesterday and would prefer to go home with [facility] and home OT. Metastatic breast cancer - See above Left upper extremity swelling - See above Hypertension, benign - Pts home medications were held at admission due to low BP - Pt is normally on Losartan 100mg po daily and Procardia XL 60mg po daily - BP has been fluctuating likely related to pain - Continue to monitor - Clonidine PRN Pt Condition on Discharge: Stable Discharge Disposition: Disch w/ Home Health Serv Discharge Instructions DIET: Follow Instructions for: As Tolerated, No Restrictions Activities you can perform: Regular-No Restrictions Follow up Referrals: Oncology - [address] Grove PCP Follow-up - [address] Chapa New Medications: Docusate Sodium (Colace) 100 Mg Capsule 100 MG PO BID for Prevent Constipation, #60 CAP 0 Refills Methadone (Methadone) 5 Mg Tab 2.5 MG PO DAILY for cancer pain, #30 TAB 0 Refills Enoxaparin Inj (Lovenox Inj) 80 mg/0.8 ML Syr 80 MG SQ DAILY for DVT, #30 INJECTION 0 Refills Hydromorphone (Dilaudid) 4 Mg Tab 4 MG PO Q4H PRN for pain, #60 TAB 0 Refills Continued Medications: Fentanyl Patch 72 HR (Fentanyl Patch 72 HR) 25 Mcg/Hr Patch 25 MCG T-DERMAL Q72H for Pain Management, #10 PATCH 0 Refills Gabapentin (Gabapentin) 300 Mg Cap 600 MG PO HS, #30 CAP 0 Refills Lorazepam (Lorazepam) 0.5 Mg Tab 0.5 MG PO HS PRN for ANXIETY AND/OR INSOMNIA, TAB 0 Refills Olaparib (Lynparza) 150 Mg Tablet 150 MG PO Q12H for Chemotherapy Management, TAB 0 Refills Ondansetron Odt (Zofran Odt) 4 Mg Tab 4 MG SL Q6HR PRN for Nausea/Vomiting, #20 TAB 0 Refills Discontinued Medications: Losartan (Cozaar) 100 Mg Tab 100 MG PO DAILY for Blood Pressure Management, #30 TAB 0 Refills Methadone (Methadone) 10 Mg Tab 20 MG PO DAILY, TAB 0 Refills Nifedipine ER 24 HR (Nifedipine ER 24 HR) 60 Mg Tab 60 MG PO DAILY for Blood Pressure Management, #30 TAB Rivaroxaban (Xarelto) 20 Mg Tab 20 MG PO DAILY for Blood Clot Prevention, TAB 0 Refills Valacyclovir (Valacyclovir) 1,000 Mg Tab 1000 MG PO TID for Mgmt Viral Infection, #90 TAB 0 Refills Carla Wetzel December 16, 2017 16:34
[2017-12-16] MEDS: GABAPENTIN 300 MG CAP PO SCH (19:59)
[2017-12-16] MEDS: REMOVE OLD FENTANYL PATCH T-DERMAL SCH (20:10)
[2017-12-16] MEDS: fentaNYL 25 MCG/HR PATCH T-DERMAL SCH (20:10)
[2017-12-16] MEDS: cloNIDine HCL 0.1 MG TAB PO PRN (20:10)
[2017-12-17] VITALS (7 sets, daily range): BP systolic 107–145; BP diastolic 56–75; PULSE 69–138; RESP 16–18; TEMP 97.5–98.9; O2SAT 95–98
[2017-12-17] MEDS: HYDROmorphone HCL 4 MG TAB PO PRN ×3 (01:24→15:59)
[2017-12-17] MEDS: LORazepam 2 MG/ML VIAL IV PUSH PRN (10:17)
[2017-12-17] MEDS: METHADONE HCL 10 MG TAB PO SCH (10:18)
[2017-12-17] MEDS: OLAPARIB PO SCH (10:18)
[2017-12-17] MEDS: DOCUSATE SODIUM 50 MG/SENNA 8.6 MG TAB PO SCH (10:18)
[2017-12-17] MEDS: SODIUM CHLORIDE 0.9% FLUSH 10 ML FLUSH IV FLUSH SCH (10:19)
[2017-12-17] MEDS: ENOXAPARIN SODIUM 80 MG/0.8 ML SYRINGE SQ SCH (10:19)
--- NOTE | 2017-12-17 10:59 | PD.ONC.PN ---
Subjective Subjective Remarks Afebrile overnight. patient resting in bed. states she is ready to go home. still having some left arm and neck pain. states it is better controlled with her current pain regimen. Objective Data Date Time Temp Pulse Resp B/P (MAP) Pulse Ox O2 Delivery O2 Flow Rate FiO2 12/17/17 08:30 97.6 88 18 107/59 (75) 97 12/17/17 08:30 97 Room Air 12/17/17 04:40 98.9 82 16 108/56 (73) 95 12/17/17 01:26 97.5 80 16 145/75 (98) 97 12/17/17 00:42 69 12/16/17 20:03 98.6 81 16 176/80 (112) 97 Manual Cuff/Auscultation 12/16/17 20:03 92 12/16/17 19:00 97 Room Air 12/16/17 17:21 18 12/16/17 17:00 97.8 80 18 138/69 (92) 96 12/16/17 17:00 97 Room Air 12/16/17 14:38 87 12/16/17 13:00 97 Room Air 12/16/17 13:00 98.4 86 18 132/77 (95) 97 Result Diagram: 12/15/17 0800 12/13/17 0403 Administered Medications Medications (Trade) Dose Ordered Sig/Leslie Route PRN Reason Start Time Stop Time Status Last Admin Dose Admin Sodium Chloride (NS Flush) 2 ml BID IV FLUSH 12/11/17 09:00 12/17/17 10:19 Acetaminophen (Tylenol) 650 mg Q4H PRN PO TEMP > 100.4 12/10/17 22:30 12/12/17 10:44 Ondansetron HCl (Zofran Inj) 4 mg Q6H PRN IVP NAUSEA OR VOMITING 12/10/17 22:30 12/15/17 12:24 Senna/Docusate Sodium (Nina-Colace) 1 tab BID PO 12/10/17 22:30 12/17/17 10:18 Magnesium Hydroxide (Milk Of Magnesia Liq) 30 ml Q12H PRN PO Mild constipation 12/10/17 22:30 12/16/17 09:26 Fentanyl (Duragesic 25 Mcg Patch.72 Hr) 1 patch Q72H T-DERMAL 12/10/17 23:00 12/16/17 20:10 Gabapentin (Neurontin) 600 mg HS PO 12/11/17 21:00 12/16/17 19:59 Miscellaneous Information 1 Q72H T-DERMAL 12/10/17 23:00 12/16/17 20:10 Clonidine (Catapres) 0.1 mg Q6H PRN PO SBP>170, DBP>90 12/11/17 15:30 12/16/17 20:10 Enoxaparin Sodium (Lovenox Inj) 80 mg DAILY SQ 12/14/17 09:00 12/17/17 10:19 Lorazepam (Ativan Inj) 0.5 mg Q6H PRN IV PUSH nausea/anxiety 12/13/17 19:45 12/17/17 10:17 Hydromorphone HCl (Dilaudid) 4 mg Q4H PRN PO pain1-10 12/14/17 12:15 12/17/17 10:19 Methadone HCl (Dolophine) 2.5 mg DAILY PO 12/14/17 18:15 12/17/17 10:18 Patient Own Medication LYNPARZA (OLAPARIB) 150MG... BID PO 12/15/17 15:30 Future hold 12/17/17 10:18 Hydromorphone HCl (Dilaudid Pf Inj) 1 mg Q3H PRN IV PUSH BREAKTHROUGH PAIN 12/15/17 15:30 12/17/17 04:34 Objective Remarks GENERAL: Pleasant elderly female, sitting up in bed. she appears comfortable. SKIN: Warm and dry. HEAD: Normocephalic. EYES: No injection or drainage. NECK: Supple, trachea midline. CARDIOVASCULAR: Regular rate and rhythm RESPIRATORY: Breath sounds equal bilaterally. No accessory muscle use. GASTROINTESTINAL: Abdomen soft, non-tender, nondistended. EXTREMITIES: No cyanosis. left upper extremity is edematous and she is unable to move. MUSCULOSKELETAL: Adequate muscle tone. NEUROLOGICAL: awake and alert. normal speech. moving extremities. Assessment/Plan Assessment 82-year-old female with triple negative breast cancer admitted with unbearable left upper arm pain Plan 1. oncology clear for discharge. 2. continue Lynparza 3. continue Fentanyl, Methadone and Dilaudid. Attending Statement Agree with above. Follow up in clinic next week. Jeanine Bright December 17, 2017 10:59 Mary Grove MD December 17, 2017 18:33
[2017-12-17] MEDS ORDERED: METH5TAB PO (12:30)
[2017-12-17] MEDS ORDERED: DILA4TAB10 PO (12:30)
--- NOTE | 2017-12-17 13:17 | HHI.DCPOC ---
Discharge Care Plan Diagnosis: (1) Left upper extremity swelling (2) DVT (deep venous thrombosis) (3) Metastatic breast cancer Goals to Promote Your Health * To prevent worsening of your condition and complications * To maintain your health at the optimal level Directions to Meet Your Goals Take your medications as prescribed Follow your dietary instruction Follow activity as directed Keep your appointments as scheduled Take your immunizations and boosters as scheduled If your symptoms worsen call your PCP, if no PCP go to Urgent Care Center or Emergency Room Smoking is Dangerous to Your Health. Avoid second hand smoke Call the 24-hour hour crisis hotline for domestic abuse at Carla Wetzel December 17, 2017 13:17
== END 2017-12-17 16:01 | disposition home health service (06) | DRG 300 ==
LOC: NEPC 17:42 → NEDA 22:31 → NEPFCDU 12-11 00:45 → OBSVTOIN 12-11 15:17 → HCIN 12-13 14:51 → HCIS 12-13 17:06 → HCIN 12-13 17:07
PROVIDERS: ADMIT Hospitalist; ATTEND Hospitalist
DX: I82.622 Acute embolism and thrombosis of deep veins of left upper extremity (principal); C77.0 Secondary and unspecified malignant neoplasm of lymph nodes of head, face and neck; B02.8 Zoster with other complications; C50.919 Malignant neoplasm of unspecified site of unspecified female breast; G83.9 Paralytic syndrome, unspecified; I10 Essential (primary) hypertension; M19.90 Unspecified osteoarthritis, unspecified site; K59.00 Constipation, unspecified; Z88.5 Allergy status to narcotic agent; Z88.8 Allergy status to other drugs, medicaments and biological substances; Z87.891 Personal history of nicotine dependence
CPT/HCPCS: 71275; 76937; 77336; 77386; 77387; 77427; 80048; 80053; 83735; 85025; 85610; 85730; 93005; 93971; 96372; 96374; G0378; J1170; J1650; J2060; J2405; Q9967

== ENCOUNTER 2018-02-04 09:32 | Observation (INO) ==
[2018-02-06] MEDS ORDERED: Bisacodyl 10 MG Supp RECTAL PRN (00:01)
[2018-02-06] MEDS ORDERED: Acetaminophen 325 MG Tablet PO PRN (00:01)
[2018-02-06] MEDS ORDERED: LORazepam 0.5 MG Tablet PO PRN (00:01)
[2018-02-06] MEDS: AMINOCAPROIC ACID 250 MG/ML PO SCH ×2 (05:24→13:00)
[2018-02-06 08:29] LABS: Baso % (Auto) 1.1 % (0.0-2.0); Eos % (Auto) 1.2 % (0.0-4.0); Hematocrit 28.3 % (35.0-46.0); Hemoglobin 9.6 gm/dL (11.6-15.3); Lymph # (Auto) 0.4 th/mm3 (1.0-4.8); Lymph % (Auto) 14.6 % (9.0-44.0); Mean Corpuscular Hemoglobin 33.5 pg (27.0-34.0); Mean Corpuscular Volume 98.4 fL (80.0-100.0); Mean Platelet Volume 9.4 fL (7.0-11.0); Mono # (Auto) 0.5 th/mm3 (0.0-0.9); Mono % (Auto) 20.4 % (0.0-8.0); Neut # (Auto) 1.5 th/mm3 (1.8-7.7); Neut % (Auto) 62.7 % (16.0-70.0); Platelet Count 118 th/mm3 (150-450); Red Blood Count 2.87 mil/mm3 (4.00-5.30); Red Cell Distribution Width 17.9 % (11.6-17.2); White Blood Count 2.4 th/mm3 (4.0-11.0)
[2018-02-06 08:40] LABS: Carbon Dioxide 23.7 meq/L (21.0-32.0); Magnesium 1.8 mg/dL (1.5-2.5); Potassium 3.3 meq/L (3.5-5.1)
[2018-02-06 09:13] VITALS: O2SAT 97
[2018-02-06] MEDS: Nystatin/Diphenhydramine/Lidocaine Mouthwash (Adult) 120 ML Botttle SWISH-SWAL SCH ×4 (09:35→21:12)
[2018-02-06] MEDS: Carvedilol 6.25 MG Tablet PO SCH ×2 (09:36→21:11)
[2018-02-06] MEDS: Folic Acid 1 MG Tablet PO SCH (09:36)
[2018-02-06] MEDS: Methadone 10 MG Tablet PO SCH (09:36)
[2018-02-06] MEDS: Gabapentin 300 MG Capsule PO SCH (09:36)
[2018-02-06] MEDS: Docusate Sodium 100 MG Capsule PO SCH ×2 (11:03→21:12)
--- NOTE | 2018-02-06 12:28 | P.PNIM ---
Subjective Interval history: Less oral bleeding today but still having significant pain in the mouth Pts BP has been quite elevated Physical Exam Vital signs: Vital Signs 02/05/18 23:56 02/06/18 00:00 02/06/18 00:10 Temperature 98.5 F 97.8 F 98.2 F Pulse Rate 88 77 76 Respiratory Rate 20 17 18 Blood Pressure 124/64 135/71 176/87 H Pulse Oximetry 96 97 97 02/06/18 04:00 02/06/18 08:00 Temperature 98.0 F 98.4 F Pulse Rate 74 74 Respiratory Rate 18 17 Blood Pressure 184/86 H 189/91 H Pulse Oximetry 95 97 Intake & Output 02/05/18 02/06/18 02/06/18 18:59 06:59 18:59 Weight 52 kg 51.8 kg Other: # Voids 3 Date of Last Bowel Movement 02/06/18 Narrative: General: NAD, AAOx3 ENT: blistering lesions on the posterior pharynx, tongue and buccal mucosa Chest: CTA Cardiac: Regular Ext: No edema Results - Labs CBC & Chem 7: 02/07/18 04:30 02/07/18 04:30 Laboratory Results - last 24 hr 02/04/18 02/04/18 02/04/18 08:00 08:00 08:00 WBC 2.4 L RBC 2.81 L Hgb 9.6 L Hct 28.7 L MCV 102.3 H MCH 34.2 H MCHC 33.4 RDW 16.2 Plt Count 147 L MPV 9.5 Neut % (Auto) 71.6 H Lymph % (Auto) 12.2 [place] % (Auto) 12.6 H Eos % (Auto) 2.2 Baso % (Auto) 1.4 Neut # (Auto) 1.7 L Lymph # (Auto) 0.3 L [place] # (Auto) 0.3 Eos # (Auto) 0.1 Baso # (Auto) 0.0 CBC Comment AUTO DIFF WBC Differential Total Counted 100 Neutrophils % (Manual) 44 Band Neutrophils % 30 H Lymphocytes % 10 Monocytes % 11 H Eosinophils % 3 Basophils % 2 Neutrophils # (Manual) 1.8 Differential Comment FINAL DIFF MANUAL Platelet Estimate LOW L Plt Morphology Comment NORMAL Ovalocytes 1+ H PT 11.5 INR 1.1 APTT 28.8 Sodium 134 L Potassium 3.7 Chloride 99 Carbon Dioxide 25.2 Anion Gap 10 BUN 12 Creatinine 0.74 Estimated GFR 76 L Random Glucose 88 Calcium 8.6 Magnesium Total Bilirubin 0.3 AST 18 ALT 9 L Alkaline Phosphatase 104 Total Protein 7.1 Albumin 3.0 L 02/05/18 02/05/18 02/06/18 06:01 06:01 06:13 WBC 1.9 L 2.4 L RBC 2.31 L 2.87 L Hgb 8.0 L 9.6 L Hct 23.4 L 28.3 L MCV 101.5 H 98.4 MCH 34.6 H 33.5 MCHC 34.1 34.0 RDW 16.0 17.9 H Plt Count 117 L 118 L MPV 9.4 9.4 Neut % (Auto) 62.7 Lymph % (Auto) 14.6 [place] % (Auto) 20.4 H Eos % (Auto) 1.2 Baso % (Auto) 1.1 Neut # (Auto) 1.5 L Lymph # (Auto) 0.4 L [place] # (Auto) 0.5 Eos # (Auto) 0.0 Baso # (Auto) 0.0 CBC Comment AUTO DIFF WBC Differential . Total Counted 100 Neutrophils % (Manual) 57 Band Neutrophils % 4 Lymphocytes % 23 Monocytes % 14 H Eosinophils % 2 Basophils % Neutrophils # (Manual) 1.2 L Differential Comment FINAL DIFF MANUAL Auto diff final Platelet Estimate LOW L Plt Morphology Comment NORMAL Ovalocytes 1+ H PT INR APTT Sodium 134 L Potassium 3.5 Chloride 101 Carbon Dioxide 23.4 Anion Gap 10 BUN 9 Creatinine 0.60 Estimated GFR 96 Random Glucose 87 Calcium 7.7 L D Magnesium 1.6 Total Bilirubin AST ALT Alkaline Phosphatase Total Protein Albumin 02/06/18 06:13 WBC RBC Hgb Hct MCV MCH MCHC RDW Plt Count MPV Neut % (Auto) Lymph % (Auto) [place] % (Auto) Eos % (Auto) Baso % (Auto) Neut # (Auto) Lymph # (Auto) [place] # (Auto) Eos # (Auto) Baso # (Auto) CBC Comment WBC Differential Total Counted Neutrophils % (Manual) Band Neutrophils % Lymphocytes % Monocytes % Eosinophils % Basophils % Neutrophils # (Manual) Differential Comment Platelet Estimate Plt Morphology Comment Ovalocytes PT INR APTT Sodium 135 L Potassium 3.3 L Chloride 102 Carbon Dioxide 23.7 Anion Gap 9 BUN 9 Creatinine 0.65 Estimated GFR 88 L Random Glucose 95 Calcium 8.0 L Magnesium 1.8 Total Bilirubin AST ALT Alkaline Phosphatase Total Protein Albumin Assessment and Plan - Assessment (1) Mucositis Code(s): K12.30 - Oral mucositis (ulcerative), unspecified Status: Acute Plan: Oral mucosal bleeding Mucositis - Pt is an 82 y/o WF with 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 Pt follows with Dr. Grove and is currently undergoing chemotherapy with Doxil with her last treatment about 2 weeks ago per the pt. Pt also with hx of DVT on Xarelto and had in December 2017 a new DVT in left subclavian vein, axillary vein, and possibly jugular vein. She was placed on Lovenox injections and was on this for around 1 month and then placed back on Xarelto. - Pt noted some bleeding coming from the roof of her mouth yesterday. Then this morning the bleeding began again and was much more profuse. She states that it persisted and this prompted her evaluation in the ED this morning. - Pt had what the ER physician thought may be a lesion on her hard palate in the ED which seemed to be the source of her bleeding but she also had some noted mucositis. - The ED physician spoke with Dr. Chappell from ENT and he recommended Afrin spray with cotton applied to the palate which seems to help decrease the bleeding. - The case was discussed between Dr. Grove and Dr. Gonzalez this morning who had recommended ENT evaluation - Appreciate consult from ENT, and confirmed the diagnosis of mucositis without a second primary lesion. - Appreciate consult from Medical Oncology, Dr. Grove - Oncology has recommend stopping the Xarelto and has initiated administration of folic acid and multivitamin - Amicar liquid Q6H is ordered through 02/06/18, Amicar changed to once daily dosing base on discussion with Oncology [facility] on 02/07/18 - Cont. Magic mouthwash QID - Antiemetics PRN - Pain regimen was continued at admission, based on pain managements orders - Constipation prevention regimen ordered - Stop IVF - Clear liquid diet as tolerated, advance to soft diet as tolerated - Monitor labs - Supportive care - DVT prophylaxis with SCDs (2) Metastatic breast cancer Code(s): C50.919 - Malignant neoplasm of unspecified site of unspecified female breast Status: Chronic (3) Pancytopenia Code(s): D61.818 - Other pancytopenia Status: Acute Plan: - Pts H/H was stable at admission compared to previous labs from 01/20 but today H/H dropped to 8.0/23.4 on 02/05 - Pt received 1 units PRBCs on 02/05 with improvement in H/H to 9.6/28.3 - WBC count 2.4 on 02/06 - Platelets at 118 on 02/06 - Pt has been on Neulasta for cytopenias during chemotherapy - Oncology following. - Monitor labs closely (4) DVT (deep venous thrombosis) Code(s): I82.409 - Acute embolism and thrombosis of unspecified deep veins of unspecified lower extremity Status: Chronic Plan: DVT in left subclavian - Pt was on Xarelto - Xarelto was held due to oral bleeding - Dr. Grove is consulted to help with anticoagulant recommendations. 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 - Pt also reportedly on Coreg 6.25mg BID - Losartan increased to 50mg BID on 02/06 - Pt was previously on Procardia in the past as well. - Continue to monitor - Clonidine PRN - Attending Attestation [id number] Prescription Drug Monitoring Database has been queried and verified prior to prescribing the controlled substance. Acute pain exception. This patient has normal, predicted, physiological, and time limited response to an adverse mechanical stimulus associated with surgery, trauma, or acute illness as described in my notes. There is a lack of alternative treatment options other than to include the prescribed narcotic treatment for this condition. Patient examined. Assessment and plan formulated with Khushi Lester PA-C. I agree with the above.
[2018-02-06] MEDS ORDERED: AMINOCAPROIC ACID 250 MG/ML PO PRN (13:27)
[2018-02-06] MEDS ORDERED: Nystatin Liq 500,000 UNIT/5 ML UDC SWISH-SWAL SCH (14:00)
--- NOTE | 2018-02-06 14:59 | P.PNONC ---
Subjective Interval history: Afebrile Patient reports she has not seen any bleeding since yesterday morning from her mouth Having some increased soreness in her mouth today Objective Vital Signs/Intake & Output: Vital Signs 02/05/18 23:56 02/06/18 00:00 02/06/18 00:10 Temperature 98.5 F 97.8 F 98.2 F Pulse Rate 88 77 76 Respiratory Rate 20 17 18 Blood Pressure 124/64 135/71 176/87 H Pulse Oximetry 96 97 97 02/06/18 04:00 02/06/18 08:00 02/06/18 12:00 Temperature 98.0 F 98.4 F 97.7 F Pulse Rate 74 74 74 Respiratory Rate 18 17 18 Blood Pressure 184/86 H 189/91 H 177/83 H Pulse Oximetry 95 97 97 Intake & Output 02/05/18 02/06/18 02/06/18 18:59 06:59 18:59 Weight 114 lb 10.246 oz 114 lb 3.191 oz Other: # Voids 3 Date of Last Bowel Movement 02/06/18 Result Diagrams: 02/06/18 06:13 02/06/18 06:13 Laboratory Results: Laboratory Results - last 24 hr 02/04/18 02/04/18 02/04/18 08:00 08:00 08:00 WBC 2.4 L RBC 2.81 L Hgb 9.6 L Hct 28.7 L MCV 102.3 H MCH 34.2 H MCHC 33.4 RDW 16.2 Plt Count 147 L MPV 9.5 Neut % (Auto) 71.6 H Lymph % (Auto) 12.2 [place] % (Auto) 12.6 H Eos % (Auto) 2.2 Baso % (Auto) 1.4 Neut # (Auto) 1.7 L Lymph # (Auto) 0.3 L [place] # (Auto) 0.3 Eos # (Auto) 0.1 Baso # (Auto) 0.0 CBC Comment AUTO DIFF WBC Differential Total Counted 100 Neutrophils % (Manual) 44 Band Neutrophils % 30 H Lymphocytes % 10 Monocytes % 11 H Eosinophils % 3 Basophils % 2 Neutrophils # (Manual) 1.8 Differential Comment FINAL DIFF MANUAL Platelet Estimate LOW L Plt Morphology Comment NORMAL Ovalocytes 1+ H PT 11.5 INR 1.1 APTT 28.8 Sodium 134 L Potassium 3.7 Chloride 99 Carbon Dioxide 25.2 Anion Gap 10 BUN 12 Creatinine 0.74 Estimated GFR 76 L Random Glucose 88 Calcium 8.6 Magnesium Total Bilirubin 0.3 AST 18 ALT 9 L Alkaline Phosphatase 104 Total Protein 7.1 Albumin 3.0 L 02/05/18 02/05/18 02/06/18 06:01 06:01 06:13 WBC 1.9 L 2.4 L RBC 2.31 L 2.87 L Hgb 8.0 L 9.6 L Hct 23.4 L 28.3 L MCV 101.5 H 98.4 MCH 34.6 H 33.5 MCHC 34.1 34.0 RDW 16.0 17.9 H Plt Count 117 L 118 L MPV 9.4 9.4 Neut % (Auto) 62.7 Lymph % (Auto) 14.6 [place] % (Auto) 20.4 H Eos % (Auto) 1.2 Baso % (Auto) 1.1 Neut # (Auto) 1.5 L Lymph # (Auto) 0.4 L [place] # (Auto) 0.5 Eos # (Auto) 0.0 Baso # (Auto) 0.0 CBC Comment AUTO DIFF WBC Differential . Total Counted 100 Neutrophils % (Manual) 57 Band Neutrophils % 4 Lymphocytes % 23 Monocytes % 14 H Eosinophils % 2 Basophils % Neutrophils # (Manual) 1.2 L Differential Comment FINAL DIFF MANUAL Auto diff final Platelet Estimate LOW L Plt Morphology Comment NORMAL Ovalocytes 1+ H PT INR APTT Sodium 134 L Potassium 3.5 Chloride 101 Carbon Dioxide 23.4 Anion Gap 10 BUN 9 Creatinine 0.60 Estimated GFR 96 Random Glucose 87 Calcium 7.7 L D Magnesium 1.6 Total Bilirubin AST ALT Alkaline Phosphatase Total Protein Albumin 02/06/18 06:13 WBC RBC Hgb Hct MCV MCH MCHC RDW Plt Count MPV Neut % (Auto) Lymph % (Auto) [place] % (Auto) Eos % (Auto) Baso % (Auto) Neut # (Auto) Lymph # (Auto) [place] # (Auto) Eos # (Auto) Baso # (Auto) CBC Comment WBC Differential Total Counted Neutrophils % (Manual) Band Neutrophils % Lymphocytes % Monocytes % Eosinophils % Basophils % Neutrophils # (Manual) Differential Comment Platelet Estimate Plt Morphology Comment Ovalocytes PT INR APTT Sodium 135 L Potassium 3.3 L Chloride 102 Carbon Dioxide 23.7 Anion Gap 9 BUN 9 Creatinine 0.65 Estimated GFR 88 L Random Glucose 95 Calcium 8.0 L Magnesium 1.8 Total Bilirubin AST ALT Alkaline Phosphatase Total Protein Albumin Medications: Active Medications Generic Name Dose Route Start Last Admin Trade Name Freq PRN Reason Stop Dose Admin Carvedilol 6.25 mg 02/06/18 09:00 02/06/18 09:36 Coreg PO 6.25 mg BID ARIELLE Administration Clonidine HCl 0.1 mg 02/06/18 00:01 02/06/18 13:04 Catapres PO 0.1 mg Q6H PRN Administration SBP>170, DBP>90 Docusate Sodium 100 mg 02/06/18 09:00 02/06/18 11:03 Colace PO Not Given BID ARIELLE Enalaprilat 1.25 mg 02/06/18 00:01 02/06/18 03:36 Vasotec Inj IV.PUSH 1.25 mg Q6H PRN Administration SBP>170, DBP>90 Folic Acid 1 mg 02/06/18 09:00 02/06/18 09:36 Folic Acid PO 1 mg DAILY ARIELLE Administration Gabapentin 300 mg 02/06/18 09:00 02/06/18 09:36 Neurontin PO 300 mg DAILY ARIELLE Administration Methadone HCl 2.5 mg 02/06/18 09:00 02/06/18 09:36 Dolophine PO 2.5 mg DAILY ARIELLE Administration Multi-Ingredient Mouthwash/Gargle 10 ml 02/06/18 09:00 02/06/18 13:01 Magic Mouthwash Adult Liq SWISH-SWAL 10 ml QID ARIELLE Administration Sodium Chloride 2 ml 02/06/18 00:01 02/06/18 09:37 Ns Flush IV.FLUSH 2 ml UNSCH PRN Administration FLUSH AFTER USING IV ACCESS Objective Remarks: GENERAL: Elderly female resting in bed in no obvious distress SKIN: Warm and dry. MOUTH: Mild thrush to tongue and posterior pharynx HEAD: Normocephalic. EYES: No injection or drainage. NECK: Supple, trachea midline. CARDIOVASCULAR: Regular rate and rhythm without murmurs. RESPIRATORY: Clear posteriorly. Breathing unlabored at rest. GASTROINTESTINAL: Abdomen soft, non-tender, nondistended. EXTREMITIES: Left upper extremity edematous. Wrapped in Javed bandage. MUSCULOSKELETAL: Adequate muscle tone. NEUROLOGICAL: No obvious focal deficit. Awake, alert, and oriented x3. Assessment/Plan - Plan Ms. 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 She was admitted with severe mucositis and bleeding from the mouth. 1. Okay to stop Amicar as she is no longer having bleeding. Would recommend that it be available as needed should she have any further oral bleeding 2. On clinical exam it appears that her oral mucosa appears to have increased thrush. Will initiate nystatin swish and swallow. 3. Hemoglobin much improved today after 1 unit packed red blood cells yesterday. Continue to monitor CBC. - Attending Statement The exam, history, and the medical decision-making described in the above note were completed with the assistance of the mid-level provider. I reviewed and agree with the findings presented. I attest that I had a [id number] encounter with the patient on the same day, and personally performed and documented my assessment and findings in the medical record. 67 yoF with metastatic triple negative breast cancer currently receiving therapy with doxil. Admitted with adverse reaction to doxil. Amicar as needed , magic mouthwash, nystatin.
[2018-02-06] MEDS: Nystatin Liq 500,000 UNIT/5 ML UDC SWISH-SWAL SCH ×3 (15:55→21:13)
[2018-02-06] MEDS ORDERED: Sodium Chlor 0.9% Inj 250 ML IV.SIG ONE (22:00)
[2018-02-07 04:56] LABS: Hematocrit 28.6 % (35.0-46.0); Hemoglobin 9.7 gm/dL (11.6-15.3); Mean Corpuscular HGB Conc 33.8 % (32.0-36.0); Mean Corpuscular Hemoglobin 33.1 pg (27.0-34.0); Mean Corpuscular Volume 97.8 fL (80.0-100.0); Mean Platelet Volume 8.9 fL (7.0-11.0); Platelet Count 128 th/mm3 (150-450); Red Blood Count 2.93 mil/mm3 (4.00-5.30); Red Cell Distribution Width 18.1 % (11.6-17.2); White Blood Count 2.5 th/mm3 (4.0-11.0)
[2018-02-07 05:19] LABS: Anion Gap 10 meq/L (5-15); Blood Urea Nitrogen 8 mg/dL (7-18); Chloride 102 meq/L (98-107); Glomerular Filtration Rate Greater Than 89 mL/min (>89); Glucose,Random 88 mg/dL (74-106); Potassium 3.4 meq/L (3.5-5.1); Sodium 136 meq/L (136-145)
[2018-02-07] MEDS ORDERED: AMINOCAPROIC ACID 250 MG/ML PO SCH ×2 (09:00)
[2018-02-07] MEDS: Nystatin/Diphenhydramine/Lidocaine Mouthwash (Adult) 120 ML Botttle SWISH-SWAL SCH ×4 (09:03→21:01)
[2018-02-07] MEDS: Methadone 10 MG Tablet PO SCH (09:05)
[2018-02-07] MEDS: Folic Acid 1 MG Tablet PO SCH (09:05)
[2018-02-07] MEDS: Gabapentin 300 MG Capsule PO SCH (09:06)
[2018-02-07] MEDS: Carvedilol 6.25 MG Tablet PO SCH ×2 (09:07→21:01)
[2018-02-07] MEDS: Docusate Sodium 100 MG Capsule PO SCH ×2 (09:08→21:01)
[2018-02-07] MEDS: Nystatin Liq 500,000 UNIT/5 ML UDC SWISH-SWAL SCH ×4 (09:09→21:01)
[2018-02-07] MEDS ORDERED: AMINOCAPROIC ACID 250 MG/ML PO PRN (11:27)
[2018-02-07] MEDS ORDERED: Potassium Chloride 10 MEQ ER Capsule PO ONE (11:31)
--- NOTE | 2018-02-07 11:37 | P.PNIM ---
Subjective Interval history: No further oral bleeding Swallowing better BP is still quite elevated today Physical Exam Vital signs: Vital Signs 02/06/18 12:00 02/06/18 16:00 02/06/18 20:00 Temperature 97.7 F 98.1 F 98.1 F Pulse Rate 74 75 73 Respiratory Rate 18 17 18 Blood Pressure 177/83 H 174/84 H 127/63 Pulse Oximetry 97 96 95 02/07/18 00:00 02/07/18 08:00 Temperature 98.4 F 98.2 F Pulse Rate 72 76 Respiratory Rate 18 18 Blood Pressure 162/78 H 180/88 H Pulse Oximetry 95 97 Intake & Output 02/06/18 02/07/18 02/07/18 18:59 06:59 18:59 Intake Total 960 / 960 Balance 960 / 960 Weight 51.8 kg Intake: Oral 960 / 960 Other: # Voids 5 5 Date of Last Bowel Movement 02/06/18 02/06/18 Narrative: General: NAD, AAOx3 ENT: blistering lesions on the posterior pharynx, tongue and buccal mucosa Chest: CTA Cardiac: Regular Ext: No edema Results - Labs CBC & Chem 7: 02/07/18 04:30 02/07/18 04:30 Laboratory Results - last 24 hr 02/07/18 02/07/18 04:30 04:30 WBC 2.5 L RBC 2.93 L Hgb 9.7 L Hct 28.6 L MCV 97.8 MCH 33.1 MCHC 33.8 RDW 18.1 H Plt Count 128 L MPV 8.9 Sodium 136 Potassium 3.4 L Chloride 102 Carbon Dioxide 24.0 Anion Gap 10 BUN 8 Creatinine 0.56 Estimated GFR Greater than 89 Random Glucose 88 Calcium 8.0 L Assessment and Plan - Assessment (1) Mucositis Code(s): K12.30 - Oral mucositis (ulcerative), unspecified Status: Acute Plan: Oral mucosal bleeding Mucositis - Pt is an 82 y/o WF with 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 Pt follows with Dr. Grove and is currently undergoing chemotherapy with Doxil with her last treatment about 2 weeks ago per the pt. Pt also with hx of DVT on Xarelto and had in December 2017 a new DVT in left subclavian vein, axillary vein, and possibly jugular vein. She was placed on Lovenox injections and was on this for around 1 month and then placed back on Xarelto. - Pt noted some bleeding coming from the roof of her mouth yesterday. Then this morning the bleeding began again and was much more profuse. She states that it persisted and this prompted her evaluation in the ED this morning. - Pt had what the ER physician thought may be a lesion on her hard palate in the ED which seemed to be the source of her bleeding but she also had some noted mucositis. - The ED physician spoke with Dr. Chappell from ENT and he recommended Afrin spray with cotton applied to the palate which seems to help decrease the bleeding. - The case was discussed between Dr. Grove and Dr. Gonzalez this morning who had recommended ENT evaluation - Appreciate consult from ENT, and confirmed the diagnosis of mucositis without a second primary lesion. - Appreciate consult from Medical Oncology, Dr. Grove - Oncology has recommend stopping the Xarelto and has initiated administration of folic acid and multivitamin - Amicar liquid Q6H is ordered through 02/06/18, Amicar changed to once daily dosing base on discussion with Oncology [employer] SALES REPRESENTATIVE on 02/07/18. Oncology notes reviewed on 02/07 and Amicar changed to PRN dosing - Cont. Magic mouthwash QID - Antiemetics PRN - Pain regimen was continued at admission, based on pain managements orders. Pt was continued on Fentanyl patch 25mcg but [facility] does not carry the 12mcg patches and the pharmacists states that the 25mch patch cannot be cut in half. So will cover with PRN pain medication - Constipation prevention regimen ordered - Stop IVF - Soft diet as tolerated - Monitor labs - Supportive care - DVT prophylaxis with SCDs (2) Metastatic breast cancer Code(s): C50.919 - Malignant neoplasm of unspecified site of unspecified female breast Status: Chronic (3) Pancytopenia Code(s): D61.818 - Other pancytopenia Status: Acute Plan: - Pts H/H was stable at admission compared to previous labs from 01/20 but today H/H dropped to 8.0/23.4 on 02/05 - Pt received 1 units PRBCs on 02/05 with improvement in H/H to 9.6/28.3. Hgb stable on 02/07 at 9.7. - No further bleeding. - WBC count stable at 2.5 on 02/07 - Platelets stable at 128 on 02/07 - Pt has been on Neulasta for cytopenias during chemotherapy - Oncology following. - Monitor labs closely (4) DVT (deep venous thrombosis) Code(s): I82.409 - Acute embolism and thrombosis of unspecified deep veins of unspecified lower extremity Status: Chronic Plan: DVT in left subclavian - Pt was on Xarelto - Xarelto was held due to oral bleeding - Dr. Grove is following. 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 - Pt also reportedly on Coreg 6.25mg BID - Losartan increased to 50mg BID on 02/06 - BP overnight was still elevated overnight and this morning - BP remains elevated - Pt was previously on Procardia in the past as well as well will add back Procardia XL 30mg po BID this evening. - Continue to monitor - Clonidine PRN - Attending Attestation [facility] Prescription Drug Monitoring Database has been queried and verified prior to prescribing the controlled substance. Acute pain exception. This patient has normal, predicted, physiological, and time limited response to an adverse mechanical stimulus associated with surgery, trauma, or acute illness as described in my notes. There is a lack of alternative treatment options other than to include the prescribed narcotic treatment for this condition. Patient examined. Assessment and plan formulated with Khushi Lester PA-C. I agree with the above.
[2018-02-08] MEDS: Nystatin Liq 500,000 UNIT/5 ML UDC SWISH-SWAL SCH ×2 (08:35→12:35)
[2018-02-08] MEDS: Docusate Sodium 100 MG Capsule PO SCH (08:35)
[2018-02-08] MEDS: Folic Acid 1 MG Tablet PO SCH (08:35)
[2018-02-08] MEDS: Methadone 10 MG Tablet PO SCH (08:35)
[2018-02-08] MEDS: Gabapentin 300 MG Capsule PO SCH (08:35)
[2018-02-08] MEDS: Carvedilol 6.25 MG Tablet PO SCH (08:36)
[2018-02-08] MEDS: Nystatin/Diphenhydramine/Lidocaine Mouthwash (Adult) 120 ML Botttle SWISH-SWAL SCH ×2 (08:36→12:35)
--- NOTE | 2018-02-08 09:31 | P.PNONC ---
Subjective Interval history: Afebrile overnight. Patient resting in bed in nad. no further bleeding. hoping to go home soon. Objective Vital Signs/Intake & Output: Vital Signs 02/07/18 12:00 02/07/18 16:00 02/07/18 20:00 Temperature 98.3 F 98.4 F 98.7 F Pulse Rate 70 71 76 Respiratory Rate 18 18 16 Blood Pressure 193/86 H 143/73 H 141/72 H Pulse Oximetry 98 97 96 02/08/18 00:00 Temperature 98.4 F Pulse Rate 71 Respiratory Rate 16 Blood Pressure 153/72 H Pulse Oximetry 97 Intake & Output 02/07/18 02/08/18 02/08/18 18:59 06:59 18:59 Intake Total 720 / 720 480 / 480 Balance 720 / 720 480 / 480 Weight 51.8 kg Intake: Oral 720 / 720 480 / 480 Other: # Voids 5 2 Weight On Admission 51.48 kg Result Diagrams: 02/07/18 04:30 02/07/18 04:30 Medications: Active Medications Generic Name Dose Route Start Last Admin Trade Name Freq PRN Reason Stop Dose Admin Carvedilol 6.25 mg 02/06/18 09:00 02/08/18 08:36 Coreg PO 6.25 mg BID ARIELLE Administration Clonidine HCl 0.1 mg 02/06/18 00:01 02/07/18 12:53 Catapres PO 0.1 mg Q6H PRN Administration SBP>170, DBP>90 Docusate Sodium 100 mg 02/06/18 09:00 02/08/18 08:35 Colace PO 100 mg BID ARIELLE Administration Enalaprilat 1.25 mg 02/06/18 00:01 02/06/18 03:36 Vasotec Inj IV.PUSH 1.25 mg Q6H PRN Administration SBP>170, DBP>90 Fentanyl 1 patch 02/06/18 14:00 02/06/18 15:33 Duragesic 25 Mcg Patch.72hr T-DERMAL 1 patch Q3D ARIELLE Administration Folic Acid 1 mg 02/06/18 09:00 02/08/18 08:35 Folic Acid PO 1 mg DAILY ARIELLE Administration Gabapentin 300 mg 02/06/18 09:00 02/08/18 08:35 Neurontin PO 300 mg DAILY ARIELLE Administration Hydromorphone HCl 4 mg 02/06/18 00:01 02/07/18 09:08 Dilaudid PO 4 mg Q4H PRN Administration PAIN SCALE 1 TO 10 Losartan Potassium 50 mg 02/06/18 21:00 02/08/18 08:36 Cozaar PO 50 mg BID ARIELLE Administration Methadone HCl 2.5 mg 02/06/18 09:00 02/08/18 08:35 Dolophine PO 2.5 mg DAILY ARIELLE Administration Multi-Ingredient Mouthwash/Gargle 10 ml 02/06/18 09:00 02/08/18 08:36 Magic Mouthwash Adult Liq SWISH-SWAL 10 ml QID ARIELLE Administration Nifedipine 30 mg 02/07/18 21:00 02/08/18 08:36 Procardia Xl PO 30 mg BID ARIELLE Administration Nystatin 5 ml 02/06/18 14:00 02/08/18 08:35 Mycostatin Liq SWISH-SWAL 5 ml QID ARIELLE Administration Sodium Chloride 2 ml 02/06/18 00:01 02/06/18 09:37 Ns Flush IV.FLUSH 2 ml UNSCH PRN Administration FLUSH AFTER USING IV ACCESS Objective Remarks: GENERAL: Pleasant elderly female, sitting up in bed in nad. SKIN: Warm and dry. HEAD: Normocephalic. EYES: No scleral icterus. No injection or drainage. NECK: Supple, trachea midline. MOUTH: 2 lesions seen on hard palate, no active bleeding. CARDIOVASCULAR: +S1/S2 RESPIRATORY: Breath sounds equal bilaterally. No accessory muscle use. GASTROINTESTINAL: Abdomen soft, non-tender, nondistended. EXTREMITIES: No cyanosis NEUROLOGICAL: awake and alert. normal speech. left arm paresis. Assessment/Plan - Plan 82y/o female with h/o metastatic triple negative breast cancer, admitted with severe mucositis + bleeding. Bleeding has resolved. 1. Patient clear for discharge from hematology/oncology perspective. 2. resume xarelto at 10mg PO daily upon arrival home (patient instructed to cut 20mg pills in half) 3. follow up in clinic in 1-2 weeks - Attending Statement The exam, history, and the medical decision-making described in the above note were completed with the assistance of the mid-level provider. I reviewed and agree with the findings presented. I attest that I had a [id number] encounter with the patient on the same day, and personally performed and documented my assessment and findings in the medical record. Patient was seen and examined in the morning. Mucositis in the buccal mucosa has improved significantly. There is still erythema in the soft palate but no bleeding. She is eating and feeling well. We discussed maneuvers to decrease the risk of mucositis during administration of chemotherapy. She is okay for discharge from hematology oncology standpoint. We discussed resuming her anticoagulant therapy when her mucositis symptoms have resolved, anticipated in the next day or two.
--- NOTE | 2018-02-08 12:04 | P.DS ---
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 Pt follows with Dr. Grove and is currently undergoing chemotherapy with Doxil with her last treatment about 2 weeks ago per the pt. Pt also with hx of DVT on Xarelto and had in December 2017 a new DVT in left subclavian vein, axillary vein, and possibly jugular vein. She was placed on Lovenox injections and was on this for around 1 month and then placed back on Xarelto. Pt noted some bleeding coming from the roof of her mouth yesterday. Then this morning the bleeding began again and was much more profuse. She states that it persisted and this prompted her evaluation in the ED this morning. Pt had what the ER physician thought may be a lesion on her hard palate in the ED which seemed to be the source of her bleeding but she also had some noted mucositis. The ED physician spoke with Dr. Chappell from ENT and he recommended Afrin spray with cotton applied to the palate which seems to help decrease the bleeding. The case was discussed between Dr. Grove and Dr. Gonzalez this morning who had recommended ENT evaluation. 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 Pt follows with Dr. Grove and is currently undergoing chemotherapy with Doxil with her last treatment about 2 weeks ago per the pt. Pt also with hx of DVT on Xarelto and had in December 2017 a new DVT in left subclavian vein, axillary vein, and possibly jugular vein. She was placed on Lovenox injections and was on this for around 1 month and then placed back on Xarelto. Pt noted some bleeding coming from the roof of her mouth yesterday. Then this morning the bleeding began again and was much more profuse. She states that it persisted and this prompted her evaluation in the ED this morning. Pt had what the ER physician thought may be a lesion on her hard palate in the ED which seemed to be the source of her bleeding but she also had some noted mucositis. The ED physician spoke with Dr. Chappell from ENT and he recommended Afrin spray with cotton applied to the palate which seems to help decrease the bleeding. The case was discussed between Dr. Grove and Dr. Gonzalez this morning who had recommended ENT evaluation. Appreciate consult from ENT, and confirmed the diagnosis of mucositis without a second primary lesion. Appreciate consult from Medical Oncology, Dr. Grove. Oncology has recommend stopping the Xarelto and has initiated administration of folic acid and multivitamin Amicar liquid Q6H was ordered through 02/06/18, Amicar changed to once daily dosing base on discussion with Oncology PERSONAL FINANCIAL REPRESENTATIVE on 02/07/18. Oncology notes reviewed on 02/07 and Amicar changed to PRN dosing. Pt was given Magic mouthwash QID during admission. Pain regimen was continued at admission, based on pain managements orders. Pt was continued on Fentanyl patch 25mcg but [facility] does not carry the 12mcg patches and the pharmacists states that the 25mch patch cannot be cut in half. So she was covered with PRN pain medication. Constipation prevention regimen was given. She tolerated soft diet. Her home pain regimen will be continued. Pt will be continued on magic mouthwash for discomfort. She will need to followup with Dr. Grove in 1 week. Pancytopenia - Pts H/H was stable at admission compared to previous labs from 01/20 but today H/H dropped to 8.0/23.4 on 02/05. Pt received 1 units PRBCs on 02/05 with improvement in H/H to 9.6/28.3. Hgb stable on 02/07 at 9.7. No further bleeding. WBC count stable at 2.5 on 02/07. Platelets stable at 128 on 02/07. Pt has been on Neulasta for cytopenias during chemotherapy. Oncology following. DVT in left subclavian - Pt was on Xarelto as an outpt which was held due to oral bleeding during admission. Oncology is recommending to resume xarelto at 10mg PO daily upon arrival home (patient instructed to cut 20mg pills in half). Locally advanced metastatic breast cancer Left arm paralysis - Oncology is following. LUE is wrapped and she will need to continue her outpt UE lymphedema wraps HTN - Pts home medications Losartan 50mg po daily which was recently restarted. Pt also reportedly on Coreg 6.25mg BID which was continued following admission. Losartan was increased to 50mg BID on 02/06. BP remained elevated and Procardia XL 30mg po BID was added back on 02/07 with improvement in the pts BP. - Time Spent with Patient Total time spent providing and/or coordinating discharge services: Greater than 30 minutes Exam Vital signs: Vital Signs 02/07/18 12:00 02/07/18 16:00 02/07/18 20:00 Temperature 98.3 F 98.4 F 98.7 F Pulse Rate 70 71 76 Respiratory Rate 18 18 16 Blood Pressure 193/86 H 143/73 H 141/72 H Pulse Oximetry 98 97 96 02/08/18 00:00 Temperature 98.4 F Pulse Rate 71 Respiratory Rate 16 Blood Pressure 153/72 H Pulse Oximetry 97 Intake & Output 02/07/18 02/08/18 02/08/18 18:59 06:59 18:59 Intake Total 720 / 720 480 / 480 Balance 720 / 720 480 / 480 Weight 51.8 kg Intake: Oral 720 / 720 480 / 480 Other: # Voids 5 2 Weight On Admission 51.48 kg Narrative: General: NAD, AAOx3 ENT: blistering lesions on the posterior pharynx, tongue and buccal mucosa Chest: CTA Cardiac: Regular Ext: No edema Results Procedures completed during hospitalization: No procedures during admission <Luis Marcelino - Last Filed: 05/27/18 11:35> Date of admission: 02/04/18 09:33 Primary care physician: Keke Chapa MD DS: Diagnosis - Discharge Diagnosis (1) Mucositis Status: Acute (2) Metastatic breast cancer Status: Chronic (3) Pancytopenia Status: Acute (4) DVT (deep venous thrombosis) Status: Chronic (5) 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 I reviewed and agree with the findings presented. I attest that I had a [id number] encounter with the patient on the same day, and personally performed and documented my assessment and findings in the medical record. Patient examined. Assessment and plan formulated with Khushi Lester PA-C. I agree with the above. - Time Spent with Patient Total time spent providing and/or coordinating discharge services: Greater than 30 minutes Discharge Plan - Discharge Order Discharge Orders: Discharge Order (Routine); Ordered 02/08/18 Ordered By: Khushi Lester - Discharge Details Anticipated Discharge Date: 02/08/18 - Physicians Team Primary Care Provider: Keke Chapa Attending Provider: Jaime Gonzalez Other Providers: Mary Grove MD ; Beny Chappell MD - Rxs /Orders / Referrals /Forms Prescriptions: Discontinued losartan 50 mg Tablet 50 mg PO ONCE rivaroxaban 10 mg Tablet 20 mg PO DAILY No Action docusate sodium [Colace] 100 mg Capsule 100 mg PO BID 30 Days Qty: 60 RF: 0 duloxetine 20 mg Capsule,Delayed Release(Dr/Ec) 40 mg PO DAILY fentanyl 25 mcg/hr Patch 72 Hour 25 mcg Transdermal Q3-4D Qty: 10 RF: 0 gabapentin 600 mg Tablet 300 mg PO HS hydromorphone [Dilaudid] 4 mg Tablet 4 mg PO Q6H PRN (Reason: Pain) Qty: 120 RF: 0 lorazepam 0.5 mg Tablet 0.5 mg PO HS PRN (Reason: Anxiety) Qty: 30 RF: 1 magnesium hydroxide [Milk of Magnesia] 400 mg/5 mL Suspension 30 ml PO DAILY PRN (Reason: Constipation) RF: 0 methadone 10 mg Tablet 10 mg PO BID Qty: 60 RF: 0 ondansetron [Zofran ODT] 8 mg Tablet,Disintegrating 8 mg PO TID PRN (Reason: Nausea) Referrals: Keke Chapa MD [Primary Care Provider] - See Instructions (Followup in 1 week, call for an appt) Mary Grove MD [Physician] - See Instructions (Followup in 1 week, call for an appt) - Discharge Instructions Patient Printed Instructions: Nifedipine (By mouth), Nystatin (By mouth), Soft Diet (DC), Deep Vein Thrombosis (DC), Oral Mucositis (DC), Chemo Induced Nausea and Vomiting (DC) Additional Instructions: PRESCRIPTIONS PROVIDED UPON DISCHARGE. TAKE ALL MEDICATIONS PRESCRIBED BY YOUR PHYSICIAN. KEEP ALL FOLLOW UP APPOINTMENTS INDICATED.
[2018-02-08 12:41] VITALS: RESP 16
--- NOTE | 2018-02-08 12:52 | P.DCO ---
- Home Health Nursing Order: Medical education, Signs/symptoms of disease process, Medication education-adverse effect, Wound care and dressing changes, Nursing assessment with vital signs Instructions: resume previous home care resume lymphedema wrapping 2-3 times per week. - Certification I have seen patient Jeri Whaley on 02/08/18. My clinical findings support the need for the requested home health care services because: Limited mobility due to disease progression, Deconditioned with increased weakness, Medication compliance is questionable, Limited ability to care for self, Need for psychosocial assistance I certify that my clinical findings support that this patient is homebound because: Impaired cognitive ability/safety, Unsafe to leave home unassisted
[2018-02-08 14:38] VITALS: BP 165/81; PULSE 82; TEMP 99.1
== END 2018-02-08 15:52 | disposition home health service (06) ==
LOC: N06 09:32
PROVIDERS: ADMIT Hospitalist; ATTEND Hospitalist

== ENCOUNTER 2018-05-13 13:47 | Inpatient (IN) ==
--- NOTE | 2018-05-13 16:35 | ED ---
HPI General Chief complaint: Wound/Laceration Stated complaint: arm wound Time Seen by Provider: 05/13/18 15:46 History of Present Illness HPI narrative: Patient is an 82-year-old female presents emergency department for evaluation of left upper extremity weeping wounds which are chronic. She was seen and evaluated by a home health nurse today who recommended that she come to the emergency department for further evaluation. Patient denies any fevers. She is known to me from a previous ER visit recently where she was dehydrated. I did not examine the wounds at that point her request. She states that she actually spoke with her primary care physician Dr. Chapa who got wound care to come out and see her and the wound care nurse not new to her but states his wounds are worsening. Related Data Home Medications Medication Instructions Recorded Confirmed fentanyl 25 mcg TRANSDERMAL Q3-4D 02/05/18 05/10/18 gabapentin 600 mg PO HS 02/25/18 05/10/18 methadone 10 mg PO BID 02/25/18 05/10/18 duloxetine 40 mg PO DAILY 05/10/18 05/10/18 hydromorphone [Dilaudid] 4 mg PO Q6H PRN 05/10/18 05/10/18 lorazepam 0.5 mg PO HS PRN 05/10/18 05/10/18 losartan 50 mg PO DAILY 05/10/18 05/10/18 metronidazole 375 mg PO TID 05/10/18 05/10/18 ondansetron [Zofran ODT] 8 mg PO TID PRN 05/10/18 05/10/18 Allergies Allergy/AdvReac Type Severity Reaction Status Date / Time meperidine Allergy Severe Irritabilit Verified 05/10/18 15:43 y/Anxiety morphine Allergy Severe Irritabilit Verified 05/10/18 15:43 y/Anxiety oxycodone Allergy Severe ANXIETY Verified 05/10/18 15:43 Review of Systems ROS: all other systems reviewed are negative [facility] Medical History Medical History Appendicitis (Acute) Breast cancer (Acute) History of hysterectomy (Acute) Hypertension (Acute) Surgical History Surgical History History of appendectomy (Acute) History of lumpectomy (Acute) History of mastectomy (Acute) Hx of tonsillectomy (Acute) Social History Social History Substance History: No History of Abuse Second Hand Smoke Exposure: No Smoking Status: Never smoker How Often Do You Have a Drink Containing Alcohol: Never Recent Travel in [facility] within the Last 8 Weeks: No Recent Out of Country Travel within the Last 8 Weeks: No Exam Narrative Exam Narrative: GENERAL: Well-developed well-nourished, no obvious distress peer SKIN: Focused skin assessment warm/dry. From the elbow distal down to the wrists the skin is just moist and weeping circumferentially, is not particularly swollen until you approach the biceps which are significantly swollen. No obvious fluid collection is appreciated. On the anterior chest wall there is also a significant amount of abrasion and some redness that approaches the border of her port on the right side of the chest. Multiple scabs in different stages of healing, the hand is relatively spared except for the fingertips on the index and long fingers which do show some abrasion as well. HEAD: Atraumatic. Normocephalic. EYES: Pupils equal and round. No scleral icterus. No injection or drainage. ENT: No nasal bleeding or discharge. Mucous membranes pink and moist. NECK: Trachea midline. No JVD. CARDIOVASCULAR: Regular rate and rhythm. No murmur appreciated. RESPIRATORY: No accessory muscle use. Clear to auscultation. Breath sounds equal bilaterally. GASTROINTESTINAL: Abdomen soft, non-tender, nondistended. Hepatic and splenic margins not palpable. MUSCULOSKELETAL: No obvious deformities. No clubbing. No cyanosis. No edema. NEUROLOGICAL: Awake and alert. No obvious cranial nerve deficits. Motor grossly within normal limits. Normal speech. PSYCHIATRIC: Appropriate mood and affect; insight and judgment normal. Course Initial Documented Vital Signs Temperature 97.5 F L 05/13/18 13:56 Pulse Rate 119 H 05/13/18 13:56 Respiratory Rate 18 05/13/18 13:56 Blood Pressure 110/74 05/13/18 13:56 Pulse Oximetry 99 05/13/18 13:56 Last Documented Vital Signs Temperature 97.5 F L 05/13/18 13:56 Pulse Rate 119 H 05/13/18 13:56 Respiratory Rate 18 05/13/18 13:56 Blood Pressure 110/74 05/13/18 13:56 Pulse Oximetry 99 05/13/18 13:56 Medical Decision Making [facility] Narrative Medical decision making narrative: This is an 82-year-old female with a history of lymphedema, DVT of the left upper extremity which anticoagulation has been contraindicated by GI bleed, breast cancer. Patient was briefly discussed with Dr. Grove and Dr. Gonzalez for admission. Patient may need palliative care consult. This is an advanced wound and the patient states his been very chronic but her nurse was concerned that is worsening. The management of such is very difficult to direct. I certainly do not think antibiotics alone will correct these wounds. Certainly with a history of lymphedema and DVT this will prolong wound healing, she continues to get radiation therapy to her left breast mass as well. Dr. Grove also says she is seeing instrument repair specialist who can offer her anything. Dr. Gonzalez knows about the patient already spoke directly with Dr. Grove and is happy to admit. Basic labs are still pending at this time. Medical Screen Exam Complete: Yes Emergency Medical Condition: Yes Differential Diagnosis Differential Diagnosis: Cellulitis, lymphedema, breast cancer, DVT of left upper extremity peer Discharge Plan Discharge Disposition Patient Disposition: 30 Still Patient Discharge Details Diagnosis: Multiple open wounds of left upper extremity Physicians Team ED Provider: Bassam Pierson Primary Care Provider: Keke Chapa Attending Provider: Jaime Gonzalez Discharge Interventions Interventions: Vital Signs Last Done: 05/13/18 13:56 Status ED Status: Admitted Observation Patient
[2018-05-13 17:28] LABS: Baso % (Auto) 0.1 % (0.0-2.0); Hematocrit 29.7 % (35.0-46.0); Lymph # (Auto) 0.2 th/mm3 (1.0-4.8); Lymph % (Auto) 1.8 % (9.0-44.0); Mean Corpuscular HGB Conc 33.8 % (32.0-36.0); Mean Corpuscular Hemoglobin 33.7 pg (27.0-34.0); Mean Corpuscular Volume 99.6 fL (80.0-100.0); Mean Platelet Volume 7.5 fL (7.0-11.0); Mono # (Auto) 0.9 th/mm3 (0.0-0.9); Mono % (Auto) 8.3 % (0.0-8.0); Neut # (Auto) 10.2 th/mm3 (1.8-7.7); Neut % (Auto) 89.8 % (16.0-70.0); Platelet Count 375 th/mm3 (150-450); Red Blood Count 2.99 mil/mm3 (4.00-5.30); Red Cell Distribution Width 16.9 % (11.6-17.2); White Blood Count 11.4 th/mm3 (4.0-11.0)
--- NOTE | 2018-05-13 17:41 | P.HPIM ---
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 Pt follows with Dr. Grove and had been treated with multiple lines of chemotherapy. Pt also with hx of DVT on Xarelto and had in December 2017 a new DVT in left subclavian vein, axillary vein, and possibly jugular vein. Pt has been dealing with severe lymphedema left arm. She has had outpt evaluation with surgical and wound care teams. She has tried compression. She presents her with swelling/oozing of fluid and blood from the left arm. It is a large open wound over the left arm. Oncology would like palliative care consult and consider hospice.raveled to Known Affected Are: No Dilaudid PRN. 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 Pylori prior to 2005. Colonoscopy in 2012 Mastectomy in 2011 Lumpectomy in 2001 Tonsillectomy in 1960 sh no etoh fh: nc - Diagnosis (1) Open wound of left upper extremity (2) Metastatic breast cancer (3) Lymphedema of left arm Review of Systems severe lymphedema and open draining left arm PMFSH - History History Provided By: Patient - Medical History Medical History: Medical History (Last Reviewed 05/19/18 @ 08:20 by Tanvi Coulter) Arthritis Breast cancer History of DVT (deep vein thrombosis) History of nephrolithiasis Hypertension Lymphedema Osteoporosis - Surgical History Surgical History: Surgical History (Last Reviewed 05/19/18 @ 08:20 by Tanvi Coulter) History of hysterectomy (Acute) History of appendectomy History of lumpectomy History of mastectomy Hx of tonsillectomy - Family History Family History: Family History (Last Updated 05/16/18 @ 10:03 by GARETT Knowles) Mother Myocardial infarction Sister Cancer Other CAD (coronary artery disease) Hypertension - Tobacco History Second Hand Smoke Exposure: No Smoking Status: Never smoker - Alcohol History How Often Do You Have a Drink Containing Alcohol: Never - Substance Use History Substance History: No History of Abuse - Travel History Recent Travel in the [place] Within the Last 8 Weeks: No Recent Travel Out of the Country Within the Last 8 Weeks: No Medications and Allergies Active Medications: Active Medications Duloxetine HCl (Cymbalta) 40 mg PO DAILY [facility] Fentanyl (Duragesic 25 Mcg Patch.72hr) patch T-DERMAL Q3-4D ARIELLE Gabapentin (Neurontin) 300 mg PO HS ARIELLE Hydromorphone HCl (Dilaudid) 4 mg PO Q6H PRN PRN Reason: Pain Lorazepam (Ativan) 0.5 mg PO HS PRN PRN Reason: Anxiety Methadone HCl (Dolophine) 10 mg PO BID ARIELLE Ondansetron HCl (Zofran Odt) 4 mg PO Q4H PRN PRN Reason: n/v Allergies Allergy/AdvReac Type Severity Reaction Status Date / Time meperidine Allergy Severe Irritabilit Verified 05/10/18 15:43 y/Anxiety morphine Allergy Severe Irritabilit Verified 05/10/18 15:43 y/Anxiety oxycodone Allergy Severe ANXIETY Verified 05/10/18 15:43 Home Medications Medication Instructions Recorded Confirmed Type gabapentin 300 mg PO HS 02/25/18 05/13/18 History duloxetine 40 mg PO DAILY 05/10/18 05/13/18 History ondansetron [Zofran ODT] 8 mg PO TID PRN 05/10/18 05/13/18 History Exam Vital signs: Vital Signs 05/13/18 13:56 Temperature 97.5 F L Pulse Rate 119 H Respiratory Rate 18 Blood Pressure 110/74 Pulse Oximetry 99 Intake & Output 05/12/18 05/13/18 05/13/18 18:59 06:59 18:59 Weight 46.266 kg heart reg lung cta abd s/nt ext left upper ext large area of left arm open with loss of skin/fould odor Results - Labs CBC & Chem 7: 05/17/18 14:00 05/18/18 05:07 Labs: Short CBC 05/13/18 Range/Units 16:45 WBC 11.4 H (4.0-11.0) th/mm3 Hgb 10.0 L (11.6-15.3) gm/dL Hct 29.7 L (35.0-46.0) % Plt Count 375 (150-450) th/mm3 Caprini VTE Risk Assessment Caprini VTE Risk Assessment: Moderate/High Risk (score >= 2) Caprini Risk Assessment Model: Point Value = 1 Point Value = 2 Point Value = 3 Point Value = 5 Age 41-60 Minor surgery BMI > 25 kg/m2 Swollen legs Varicose veins or History of unexplained or recurrent spontaneous Oral contraceptives or hormone replacement Sepsis (< 1 month) Serious lung disease, including pneumonia (< 1 month) Abnormal pulmonary function Acute myocardial infarction Congestive heart failure (< 1 month) History of inflammatory bowel disease Medical patient at bed rest Age 61-74 Arthroscopic surgery Major open surgery (> 45 min) Laparoscopic surgery (> 45 min) Malignancy Confined to bed (> 72 hours) Immobilizing plaster cast Central venous access Age >= 75 History of VTE Family history of VTE Factor V Leiden Prothrombin [id number] Lupus anticoagulant Anticardiolipin antibodies Elevated serum homocysteine Heparin-induced thrombocytopenia Other congenital or acquired thrombophilia Stroke (< 1 month) Elective arthroplasty Hip, pelvis, or leg fracture Acute spinal cord injury (< 1 month) Prophylaxis Regimen: Total Risk Factor Score Risk Level Prophylaxis Regimen 0-1 Low Early ambulation 2 Moderate Order ONE of the following: *Sequential Compression Device (SCD) *Heparin 5000 units SQ BID 3-4 Higher Order ONE of the following medications: *Heparin 5000 units SQ TID *Enoxaparin/Lovenox 40 mg SQ daily (WT < 150 kg, CrCl > 30 mL/min) *Enoxaparin/Lovenox 30 mg SQ daily (WT < 150 kg, CrCl > 10-29 mL/min) *Enoxaparin/Lovenox 30 mg SQ BID (WT < 150 kg, CrCl > 30 mL/min) AND/OR *Sequential Compression Device (SCD) 5 or more Highest Order ONE of the following medications: *Heparin 5000 units SQ TID (Preferred with Epidurals) *Enoxaparin/Lovenox 40 mg SQ daily (WT < 150 kg, CrCl > 30 mL/min) *Enoxaparin/Lovenox 30 mg SQ daily (WT < 150 kg, CrCl > 10-29 mL/min) *Enoxaparin/Lovenox 30 mg SQ BID (WT < 150 kg, CrCl > 30 mL/min) AND *Sequential Compression Device (SCD) Assessment and Plan - Assessment (1) Open wound of left upper extremity Code(s): S41.102A - Unspecified open wound of left upper arm, initial encounter Status: Acute Plan: Locally advance Breast CA - Pt is an 82 y/o WF with 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 Pt follows with Dr. Grove and had been treated with multiple lines of chemotherapy .Pt also with hx of DVT on Xarelto and had in December 2017 a new DVT in left subclavian vein, axillary vein, and possibly jugular vein. Pt has been dealing with severe lymphedema left arm. She has had outpt evaluation with surgical and wound care teams. She has tried compression. She presents her with swelling/oozing of fluid and blood from the left arm. It is a large open wound over the left arm. Discussed with DR Hurst and decided to try wrapping the arm with surgicel. conult to palliative care cont pain control discussed with her oncologist santosh on hold. (2) Metastatic breast cancer Code(s): C50.919 - Malignant neoplasm of unspecified site of unspecified female breast Status: Chronic (3) Lymphedema of left arm Code(s): I89.0 - Lymphedema, not elsewhere classified Status: Acute
[2018-05-13 17:56] LABS: Albumin 2.3 g/dL (3.4-5.0); Anion Gap 9 meq/L (5-15); Aspartate Aminotransferase 31 U/L (15-37); Blood Urea Nitrogen 26 mg/dL (7-18); Calcium 8.7 mg/dL (8.5-10.1); Carbon Dioxide 29.3 meq/L (21.0-32.0); Chloride 89 meq/L (98-107); Glomerular Filtration Rate 59 mL/min (>89); Glucose,Random 107 mg/dL (74-106); Potassium 4.7 meq/L (3.5-5.1); Sodium 127 meq/L (136-145)
[2018-05-13 17:58] LABS: Alanine Aminotransferase 18 U/L (10-53)
[2018-05-13 17:59] LABS: Alkaline Phosphatase 97 U/L (45-117); Total Protein 7.4 g/dL (6.4-8.2)
--- NOTE | 2018-05-13 18:03 | XR ---
EXAM DATE: 05/13/2018 3:54 PM EDT AGE/SEX: 82 years / Female INDICATIONS: Fever. CLINICAL DATA: This is the patient's initial encounter. Patient reports that signs and symptoms have been present for 1 day and indicates a pain score of 0/10. MEDICAL/SURGICAL HISTORY: Hypertension. . Hysterectomy. Mastectomy, left. Appendectomy. COMPARISON: C, CHEST 1V SINGLE AP, 05/10/2018. . FINDINGS: Left pleural effusion is present in the left lung base consolidation and/or compressive col lapse has not significantly changed. Previously seen subcutaneous gas on the left side has resolved f or the most part. Right subclavian [id number] is present with tip overlapping the expected region of the SVC. CONCLUSION: Left pleural effusion left lung base consolidation not significantly changed. Electronically signed by: Michael Bowman MD 05/13/2018 6:01 PM EDT
[2018-05-13] MEDS: LORazepam 0.5 MG Tablet PO PRN (22:34)
--- NOTE | 2018-05-13 22:34 | MB ---
cc: Sumi Castañeda MD DATE: 05/13/2018 CHIEF COMPLAINT: 1. Metastatic breast cancer. 2. Locally advanced disease in her arm. 3. Need for wound care. HISTORY OF PRESENT ILLNESS: Ms. Whaley is an 82-year-old lady who follows closely in clinic with my partner, Dr. Grove for breast cancer. She has an extensive breast cancer and it will be detailed below. She was initially seen on 02/25/2016. She presented in 2001 with palpable breast mass, which showed high-grade infiltrating ductal carcinoma. Lumpectomy in 02/2002, pathology showed T1c N0 M0, ER positive, TX positive, HER2 negative breast cancer. She was treated with breast irradiation and tamoxifen, followed by Arimidex in 03/2007, and she was treated with an additional 5 years of AI. She stopped due to toxicity in 09/2008. Her course was complicated by osteopenia and osteoporosis. In 2011, she developed an irregular density in the left upper breast. She had a second primary invasive poorly differentiated carcinoma, ER negative, TX negative, HER2 negative. No evidence of distant metastatic disease. She had a left mastectomy and the pathology showed T2 N1 microscopic M0. This was complicated by left breast cellulitis. Adjuvant chemotherapy with Taxotere and Cytoxan with Neulasta. Recurrence 01/23/2016 with axillary mass. She received chest wall radiation for localized chest disease. Considered a surgical resection; however, she was seen at the by Dr. Salcido and a surgical resection would require losing her left arm. She had some local control of her disease post-radiation, but afterwards she developed progression of her disease, brachial plexopathy and loss of function of the left arm. She also had left upper extremity DVT and has been on chronic anticoagulation therapy. She has chronic hoarseness from progression of disease in her left neck. She was treated with cisplatin and study medication ABT 888 under clinical trial. She progressed. She was then placed on single agent Doxil and then had progression of disease. She has had wrapping and dressing of the left arm, and topical Flagyl. Unfortunately, she has had no improvement in her symptoms. She is currently being treated with nivolumab under Dr. Grove. She reports that the wound care of her arm became progressively difficult and worsening and that was what prompted her to present to the hospital. PAST MEDICAL HISTORY: Breast cancer. PAST SURGICAL HISTORY: Appendectomy, breast surgeries, tonsillectomy. ALLERGIES: 1. CODEINE. 2. DEMEROL. 3. MORPHINE. 4. PERCOCET. MEDICATIONS: 1. Calcium. 2. Vitamin D. 3. Fentanyl patch. 4. Gabapentin. 5. Ativan. 6. Losartan. 7. Methadone. 8. Multivitamins. 9. Zofran. 10. Vitamin B12. 11. Vitamin D. ALLERGIES: NO KNOWN ALLERGIES. FAMILY HISTORY: No known family history of malignancy. SOCIAL HISTORY: Good support system. She denies tobacco, alcohol, illegal drug use. REVIEW OF SYSTEMS: As above in the HPI. All others negative. PHYSICAL EXAMINATION: GENERAL: Thin, chronically ill-appearing lady in no distress. HEENT: Head is normocephalic, atraumatic. Eyes: PERRLA, EOMI. No scleral icterus. RESPIRATORY: Clear to auscultation bilaterally. ABDOMEN: Soft and nontender, no hepatosplenomegaly present. CARDIOVASCULAR: Regular rate and rhythm. No murmurs. SKIN: Chest and left arm with redness, irritation, hyperpigmented changes. Soft, mass in left axilla. NEUROLOGIC: Grossly nonfocal. PSYCHIATRIC: Appropriate mood and affect. ASSESSMENT AND PLAN: 1. 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 She is currently being treated under the direction of Dr. Grove with nivolumab. 2. Wound care to her left arm. We will have wound care team stop by and see patient. 3. History of deep venous thrombosis. We will continue on anticoagulation therapy. MD PASQUALE Nicole/rosalina , 08:51 PM , 09:00 PM
[2018-05-13] MEDS: Methadone 10 MG Tablet PO SCH (22:35)
[2018-05-13] MEDS: Gabapentin 300 MG Capsule PO SCH (22:35)
[2018-05-14] MEDS ORDERED: Sodium Chloride 0.9% 2 ML Flush PRN IV.FLUSH (06:28)
[2018-05-14 06:44] LABS: Calcium 8.1 mg/dL (8.5-10.1); Carbon Dioxide 27.7 meq/L (21.0-32.0); Potassium 4.9 meq/L (3.5-5.1)
[2018-05-14] MEDS ORDERED: Influenza (Quadrivalent) Vaccine 0.5 ML Syringe IM ONE (09:00)
[2018-05-14] MEDS: Methadone 10 MG Tablet PO SCH ×2 (09:50→21:07)
[2018-05-14] MEDS: Sodium Chloride 0.9% 2 ML Flush BID IV.FLUSH SCH (09:51)
--- NOTE | 2018-05-14 10:46 | P.PNIM ---
Subjective Interval history: pt looks more comfortable Physical Exam Vital signs: Vital Signs 05/13/18 13:56 05/13/18 20:00 05/13/18 23:00 Temperature 97.5 F L 97.9 F Pulse Rate 119 H 96 H 100 H Respiratory Rate 18 18 Blood Pressure 110/74 177/93 H Pulse Oximetry 99 97 05/13/18 23:35 05/14/18 00:00 05/14/18 04:00 Temperature 98.3 F 98.1 F Pulse Rate 99 H 99 H Respiratory Rate 20 18 20 Blood Pressure 160/79 H 157/73 H Pulse Oximetry 96 94 L 05/14/18 08:00 05/14/18 09:00 Temperature 97.8 F Pulse Rate 99 H 97 H Respiratory Rate 18 Blood Pressure 144/75 H Pulse Oximetry 95 Intake & Output 05/13/18 05/14/18 05/14/18 18:59 06:59 18:59 Intake Total 315 / 315 Balance 315 / 315 Weight 46.266 kg 48.8 kg Intake: Oral 315 / 315 Other: # Voids 1 Weight On Admission 48.8 kg left arm wrapped heavily. foul odor and some liquid soaked through on outer bandages. Results - Labs CBC & Chem 7: 05/13/18 16:45 05/14/18 05:13 Laboratory Results - last 24 hr 05/13/18 05/13/18 05/13/18 16:40 16:45 16:45 WBC 11.4 H RBC 2.99 L Hgb 10.0 L Hct 29.7 L MCV 99.6 MCH 33.7 MCHC 33.8 RDW 16.9 Plt Count 375 MPV 7.5 Neut % (Auto) 89.8 H Lymph % (Auto) 1.8 L [place] % (Auto) 8.3 H Eos % (Auto) 0.0 Baso % (Auto) 0.1 Neut # (Auto) 10.2 H Lymph # (Auto) 0.2 L [place] # (Auto) 0.9 Eos # (Auto) 0.0 Baso # (Auto) 0.0 WBC Differential . Differential Comment Auto diff final Sodium 127 L Potassium 4.7 Chloride 89 L Carbon Dioxide 29.3 Anion Gap 9 BUN 26 H Creatinine 0.91 Estimated GFR 59 L Random Glucose 107 H Lactic Acid 1.8 Calcium 8.7 Total Bilirubin 0.4 AST 31 ALT 18 Alkaline Phosphatase 97 Total Protein 7.4 D Albumin 2.3 L 05/14/18 05:13 WBC RBC Hgb Hct MCV MCH MCHC RDW Plt Count MPV Neut % (Auto) Lymph % (Auto) [place] % (Auto) Eos % (Auto) Baso % (Auto) Neut # (Auto) Lymph # (Auto) [place] # (Auto) Eos # (Auto) Baso # (Auto) WBC Differential Differential Comment Sodium 129 L Potassium 4.9 Chloride 93 L Carbon Dioxide 27.7 Anion Gap 8 BUN 23 H Creatinine 0.82 Estimated GFR 67 L Random Glucose 85 Lactic Acid Calcium 8.1 L Total Bilirubin AST ALT Alkaline Phosphatase Total Protein Albumin - Imaging Impressions Chest X-Ray 05/13/18 15:54 CONCLUSION: Left pleural effusion left lung base consolidation not significantly changed. 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 Pt follows with Dr. Grove and had been treated with multiple lines of chemotherapy . Pt also with hx of DVT on Xarelto and had in December 2017 a new DVT in left subclavian vein, axillary vein, and possibly jugular vein. Pt has been dealing with severe lymphedema left arm. She has had outpt evaluation with surgical and wound care teams. She has tried compression. She presents her with swelling/oozing of fluid and blood from the left arm. It is a large open wound over the left arm. Discussed with DR Hurst and decided to try wrapping the arm with surgicel. This morning there is some leakage through but seems to be containing the drainage for the most part Discussed with nursing staff to change her dressing today and hopefully it will only need changed once a day moving forward Will ask CM to consult with DR Hoyos and if they can assist with this type of bandage and how often can they visit. Palliative was consulted. pain control. (2) Lymphedema of left arm Code(s): I89.0 - Lymphedema, not elsewhere classified Status: Acute (3) Metastatic breast cancer Code(s): C50.919 - Malignant neoplasm of unspecified site of unspecified female breast Status: Chronic
--- NOTE | 2018-05-14 13:17 | ECG ---
Date Performed: 05/13/2018 Time Performed: 16:16:39 PTAGE: 82 years EKG: Sinus rhythm NORMAL ECG PREVIOUS TRACING : 05/10/2018 17.01 DOCTOR: Adrianne Morrison Interpretating Date/Time 05/14/2018 13:11:49
--- NOTE | 2018-05-14 14:05 | P.PNONC ---
Subjective Interval history: Afebrile Patient resting in bed watching TV in no obvious distress Complaining of profuse drainage from left arm Denies any bleeding Objective Vital Signs/Intake & Output: Vital Signs 05/13/18 20:00 05/13/18 23:00 05/13/18 23:35 Temperature 97.9 F Pulse Rate 96 H 100 H Respiratory Rate 18 20 Blood Pressure 177/93 H Pulse Oximetry 97 05/14/18 00:00 05/14/18 04:00 05/14/18 08:00 Temperature 98.3 F 98.1 F 97.8 F Pulse Rate 99 H 99 H 99 H Respiratory Rate 18 20 18 Blood Pressure 160/79 H 157/73 H 144/75 H Pulse Oximetry 96 94 L 95 05/14/18 09:00 Temperature Pulse Rate 97 H Respiratory Rate Blood Pressure Pulse Oximetry Intake & Output 05/13/18 05/14/18 05/14/18 18:59 06:59 18:59 Intake Total 315 / 315 Balance 315 / 315 Weight 102 lb 107 lb 9.369 oz Intake: Oral 315 / 315 Other: # Voids 1 Weight On Admission 107 lb 9.369 oz Result Diagrams: 05/13/18 16:45 05/14/18 05:13 Laboratory Results: Laboratory Results - last 24 hr 05/13/18 05/13/18 05/13/18 16:40 16:45 16:45 WBC 11.4 H RBC 2.99 L Hgb 10.0 L Hct 29.7 L MCV 99.6 MCH 33.7 MCHC 33.8 RDW 16.9 Plt Count 375 MPV 7.5 Neut % (Auto) 89.8 H Lymph % (Auto) 1.8 L [place] % (Auto) 8.3 H Eos % (Auto) 0.0 Baso % (Auto) 0.1 Neut # (Auto) 10.2 H Lymph # (Auto) 0.2 L [place] # (Auto) 0.9 Eos # (Auto) 0.0 Baso # (Auto) 0.0 WBC Differential . Differential Comment Auto diff final Sodium 127 L Potassium 4.7 Chloride 89 L Carbon Dioxide 29.3 Anion Gap 9 BUN 26 H Creatinine 0.91 Estimated GFR 59 L Random Glucose 107 H Lactic Acid 1.8 Calcium 8.7 Total Bilirubin 0.4 AST 31 ALT 18 Alkaline Phosphatase 97 Total Protein 7.4 D Albumin 2.3 L 05/14/18 05:13 WBC RBC Hgb Hct MCV MCH MCHC RDW Plt Count MPV Neut % (Auto) Lymph % (Auto) [place] % (Auto) Eos % (Auto) Baso % (Auto) Neut # (Auto) Lymph # (Auto) [place] # (Auto) Eos # (Auto) Baso # (Auto) WBC Differential Differential Comment Sodium 129 L Potassium 4.9 Chloride 93 L Carbon Dioxide 27.7 Anion Gap 8 BUN 23 H Creatinine 0.82 Estimated GFR 67 L Random Glucose 85 Lactic Acid Calcium 8.1 L Total Bilirubin AST ALT Alkaline Phosphatase Total Protein Albumin Culture Results: Microbiology 05/13/18 16:45 Aerobic Blood Culture - Preliminary Blood - Peripheral No growth in 1 day Anaerobic Blood Culture - Preliminary No growth in 1 day 05/13/18 16:40 Aerobic Blood Culture - Preliminary Blood - Peripheral No growth in 1 day Anaerobic Blood Culture - Preliminary No growth in 1 day Imaging Studies: Impressions Chest X-Ray 05/13/18 15:54 CONCLUSION: Left pleural effusion left lung base consolidation not significantly changed. Medications: Active Medications Generic Name Dose Route Start Last Admin Trade Name Freq PRN Reason Stop Dose Admin Duloxetine HCl 40 mg 05/14/18 09:00 05/14/18 09:51 Cymbalta PO 40 mg DAILY ARIELLE Administration Fentanyl 1 patch 05/13/18 18:00 05/13/18 22:36 Duragesic 25 Mcg Patch.72hr T-DERMAL Not Given Q72H ARIELLE Gabapentin 300 mg 05/13/18 21:00 05/13/18 22:35 Neurontin PO 300 mg HS ARIELLE Administration Lorazepam 0.5 mg 05/13/18 17:37 05/13/18 22:34 Ativan PO 0.5 mg HS PRN Administration Anxiety Methadone HCl 10 mg 05/13/18 21:00 05/14/18 09:50 Dolophine PO 10 mg BID ARIELLE Administration Sodium Chloride 2 ml 05/14/18 09:00 05/14/18 09:51 Ns Flush IV.FLUSH 2 ml BID ARIELLE Administration Objective Remarks: GENERAL: Elderly female resting in bed watching TV in no acute distress SKIN: Warm and dry. HEAD: Normocephalic. EYES: No scleral icterus. No injection or drainage. NECK: Supple, trachea midline. CARDIOVASCULAR: Regular rate and rhythm without murmurs. RESPIRATORY: Clear anteriorly. Breathing unlabored at rest. GASTROINTESTINAL: Abdomen soft, non-tender, nondistended. EXTREMITIES: No cyanosis. Left arm wrapped in Gayla. Noted drainage to gown, bed sheets MUSCULOSKELETAL: Adequate muscle tone. NEUROLOGICAL: No obvious focal deficit. Awake, alert, and oriented x3. Assessment/Plan - Plan 82-year-old female with metastatic breast cancer who has progressed on multiple lines of therapy, currently on checkpoint inhibitor with nivolumab. Admitted with weeping wounds from left arm. 1. Agree with attempting to use Surgicel to attempt to control drainage to left arm 2. Further treatment will be discussed outpatient 3. Continue supportive care - Attending Statement The exam, history, and the medical decision-making described in the above note were completed with the assistance of the mid-level provider. I reviewed and agree with the findings presented. I attest that I had a [id number] encounter with the patient on the same day, and personally performed and documented my assessment and findings in the medical record. 82 yoF with metastatic triple negative breast cancer progressed on multiple lines of therapy now on nivolumab. wound care following for care of left arm. She reports that it is less wet today. Inpatient oncology service will continue to follow.
[2018-05-14] MEDS: Gabapentin 300 MG Capsule PO SCH (21:07)
[2018-05-14] MEDS: LORazepam 0.5 MG Tablet PO PRN (21:08)
[2018-05-15] MEDS: Sodium Chloride 0.9% 2 ML Flush BID IV.FLUSH SCH ×3 (03:48→20:56)
[2018-05-15] MEDS: Methadone 10 MG Tablet PO SCH ×2 (09:21→20:55)
--- NOTE | 2018-05-15 10:10 | P.PNIM ---
Subjective Interval history: pt says the dressing still soaks through but less so than before admission Physical Exam Vital signs: Vital Signs 05/14/18 12:00 05/14/18 16:00 05/14/18 20:00 Temperature 97.3 F L 97.3 F L 98.0 F Pulse Rate 99 H 91 H 92 H Respiratory Rate 18 18 18 Blood Pressure 136/72 157/80 H 139/70 Pulse Oximetry 96 95 93 L 05/15/18 00:00 05/15/18 04:00 05/15/18 08:00 Temperature 97.4 F L 98.4 F 97.8 F Pulse Rate 88 93 H 108 H Respiratory Rate 18 20 18 Blood Pressure 150/76 H 113/67 114/68 Pulse Oximetry 92 L 92 L 91 L Intake & Output 05/14/18 05/15/18 05/15/18 18:59 06:59 18:59 Intake Total 480 / 480 380 / 380 Output Total 300 / 300 Balance 180 / 180 380 / 380 Weight 52.5 kg Intake: Oral 480 / 480 380 / 380 Output: Urine 300 / 300 Other: # Voids 2 Date of Last Bowel Movement 05/13/18 # Bowel Movements 1 left arm dressing. soaked. foul odor Results - Labs CBC & Chem 7: 05/13/18 16:45 05/14/18 05:13 Microbiology 05/13/18 16:45 Blood - Peripheral Aerobic Blood Culture - Preliminary No growth in 1 day 05/13/18 16:45 Blood - Peripheral Anaerobic Blood Culture - Preliminary No growth in 1 day 05/13/18 16:40 Blood - Peripheral Aerobic Blood Culture - Preliminary No growth in 1 day 05/13/18 16:40 Blood - Peripheral Anaerobic Blood Culture - Preliminary No growth in 1 day Assessment and Plan - Assessment (1) Open wound of left upper extremity Code(s): S41.102A - Unspecified open wound of left upper arm, initial encounter Status: Acute Plan: Locally advance Breast CA - Pt is an 82 y/o WF with 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 Pt follows with Dr. Grove and had been treated with multiple lines of chemotherapy . Pt also with hx of DVT on Xarelto and had in December 2017 a new DVT in left subclavian vein, axillary vein, and possibly jugular vein. Pt has been dealing with severe lymphedema left arm. She has had outpt evaluation with surgical and wound care teams. She has tried compression. She presents her with swelling/oozing of fluid and blood from the left arm. It is a large open wound over the left arm. Discussed with DR Hurst and decided to try wrapping the arm with surgicel. This morning there is still some leakage through but seems to be containing the drainage for the most part Discussed with nursing staff to change her dressing today and hopefully it will only need changed once a day moving forward Will ask CM to consult with DR Hoyos and if they can assist with this type of bandage and how often can they visit. Will call [facility] wound care tomorrow morning to see how they can help moving forward. she is established there and gets dressing changes 2x week. Palliative was consulted. hospice would be appropriate. pain control. Once above discussions with arash hoyos/[facility] wound clinic/palliative occur then she can be discharged tomorrow. (2) Lymphedema of left arm Code(s): I89.0 - Lymphedema, not elsewhere classified Status: Acute (3) Metastatic breast cancer Code(s): C50.919 - Malignant neoplasm of unspecified site of unspecified female breast Status: Chronic
--- NOTE | 2018-05-15 15:01 | P.DIET ---
Nutritional Evaluation Type of nutrition evaluation: initial Nutrition screening: Weight Loss > 10 lbs Subjective Subjective Comments: Pt reports a good appetite but also reports recent unintentional weight loss Objective - Diagnosis Wound, Laceration - Objective Regina body weight: 50 kg % IBW: 98 Body Weight Used for Calculations: Actual (49kg) Energy Needs - Lower Range (kCal/kg): 30 Energy Needs - Upper Range (kCal/kg): 35 Lower Limit kCal/kg (kCals): 1,470 Upper Limit kCal/kg (kCals): 1,715 Lower Limit Protein Factor (Grams per Kg): 1.2 Upper Limit Protein Factor (Grams per Kg): 1.5 Lower Protein Needs (Protein): 59 Upper Protein Needs (Protein): 74 Fluid Factor (ml/kg): 28 Estimated Fluid Needs (ml): 1,372 Dietitian Reviewed in Medical Record: Current diet, Curent medications, Intake & Output, Labs, Medical history Diet Order: Regular Oral Diet Intake Amount: Fair 50-75% Wound Care Note: WOC consult pending Objective Comments: PMH: Breast Cancer, HTN, lymphedema, DVT Assessment Assessment: Pt at nutritional risk r/t current clinical status. Pt admitted with upper extremity weeping wound, WOC consult pending. Pt's nutritional needs as assessed above. She is currently taking 50-75% of her meals. Will provide Ensure on meal tray for added nutrition; each bottle contains 220kcals and 10gms protein. Will monitor po intake, clinical course. Recommendations: Regular diet with Ensure tid Dietitian to Monitor: Lab values, Supplement acceptance, Intake & Output, Diet tolerance, Weight change, Wound/skin status, Medical course
[2018-05-15] MEDS: Gabapentin 300 MG Capsule PO SCH (20:55)
[2018-05-15] MEDS: LORazepam 0.5 MG Tablet PO PRN (20:56)
[2018-05-16] MEDS: Sodium Chloride 0.9% 2 ML Flush BID IV.FLUSH SCH ×2 (08:50→20:29)
[2018-05-16] MEDS: Methadone 10 MG Tablet PO SCH ×2 (08:50→20:28)
--- NOTE | 2018-05-16 10:29 | P.PNWCN ---
Wound Care Nurse Consult Description: Wound consult ordered by for wound management. Recommendation: Please refer to current wound care orders Additional information: Patient was not seen today currently under the skilled care of and team members.
--- NOTE | 2018-05-16 11:04 | P.CONPAL ---
Consult Service: Palliative Care Requesting Physician: Jaime Gonzalez Reason for Consult: a. To assist with evaluation and management of symptoms including: pain, constipation b. To assist medical decision maker(s) with: better understanding of current medical conditions; weighing benefits/burdens of medical treatment options; making medical treatment decisions. Primary Care Provider: Keke Chapa MD History of Present Illness History of Present Illness: Mrs. Whaley is an 82 year old female with a history of lymphedema, history of DVT and recurrent breast cancer. Patient presented to [place] ED on 05/13/2018 for evaluation of weeping wounds in the left upper extremity. She was evaluated by a home health/wound care nurse today who recommended she come to the ED to be evaluated because the wounds were worsening. Diagnostic data: * Pulse 119, respirations 18, BP 110/74, oxygen saturation 99% on room air, oral temperature 97.5 * WBC: 11.4, hemoglobin 10.0, hematocrit 29.7, platelets 375, neutrophils 89.8% * Sodium: 127, potassium 4.7, chloride 89, carbon dioxide 29.3, glucose 107, calcium 8.7 * BUN: 26, creatinine 0.91, GFR 59 * Total bilirubin: 0.4, AST 31, ALT 18, alkaline phosphatase 97 * Total protein: 7.4, albumin 2.3 * Lactic acid: 1.8 * Blood cultures - no growth in 2 days * Chest x-ray showed a left pleural effusion in the left lung base, consolidation and/or compressive collapse has not significantly changed Oncology was consulted in this patient with a known history of metastatic breast cancer. She was first diagnosed with breast cancer in 2001 and underwent a lumpectomy. She was treated with breast irradiation and Tamoxifen, followed by Arimidex in 2006. Treatment was stopped in 2008 because of toxicity including osteopenia and osteoporosis. In 2011, she underwent a left mastectomy and axillary node dissection in 2011. She received adjuvant chemotherapy with Taxotere and Cytoxan with Neulasta. She had recurrence in January, with an axillary mass. Patient received chest wall radiation for localized disease. She considered surgical resection, but that would require losing her left arm. She initially had some local control her disease post radiation but developed disease progression, brachial plexopathy and loss of function in the left arm. She had a DVT in the left upper extremity and had been on anticoagulation therapy. She developed disease progression in her left neck. She received cisplatin and was involved in a clinical trial. She was then placed on single agent Doxil and again had disease progression. Patient has locally advanced metastatic breast cancer that has progressed despite multiple lines of therapy. She is currently being treated by Dr. Grove and is on Nivolumab. Patient has had severe lymphedema with significant drainage from the left arm. Wound wrapped with surgicel. Palliative Care was consulted to assist with symptom management and to discuss with the family the benefits and burdens of her current illnesses and the options regarding future care. Left arm with lymphedema and draining wound. Patient complains of pain in her left arm which can be severe at times, but states she is satisfied with her current medication regimen. She currently receives methadone 10mg PO 2 times daily, Duragesic patch 25mcg and gabapentin 300 mg qHS. PRN Dilaudid is ordered but has not been utilized. Patient verbalizing ongoing aggressive goals, but states her has been struggling and she does not know what the plan is anymore. 5 wishes booklet was left at the patient's bedside; will need further discussions with the palliative care team to clarify medical treatment goals. Function/Cognitive Trajectory: Patient is a frail, elderly female with metastatic breast cancer. She has had disease progression despite multiple therapies. Patient reports increasing weakness, nonhealing wounds, pain and weight loss. She states her is having more difficulty emotionally as well as helping her physically. Review of Systems Constitutional: Reports weight loss (Reported weight loss of 20 pounds in the past year) Ears, Nose, Mouth, and Throat: Denies mouth lesions, Denies mouth pain Cardiovascular: Reports shortness of breath with activity Respiratory: Reports cough, Denies coughing up blood Gastrointestinal: Reports constipation (Intermittent) Skin/Breast: Reports other Comments: Left arm with lymphedema, draining wound PMFSH - History History Provided By: Patient - Medical History Medical History: Medical History (Last Updated 05/16/18 @ 10:11 by GARETT Knowles) Arthritis History of DVT (deep vein thrombosis) History of nephrolithiasis Lymphedema Osteoporosis Breast cancer Hypertension - Surgical History Surgical History: Surgical History (Last Updated 05/16/18 @ 10:02 by GARETT Knowles) History of hysterectomy (Acute) History of appendectomy History of lumpectomy History of mastectomy Hx of tonsillectomy - Family History Family History: Family History (Last Updated 05/16/18 @ 10:03 by GARETT Knowles) Mother Myocardial infarction Sister Cancer Other CAD (coronary artery disease) Hypertension - Social History I have reviewed the patient's Social History: Yes - Tobacco History Second Hand Smoke Exposure: No Tobacco Use In Past 30 Days: No Smoking Status: Former smoker (Quit 25+ years ago) Tobacco Type: Cigarettes years: 30 - Alcohol History How Often Do You Have a Drink Containing Alcohol: Monthly or less - Substance Use History Substance History: No History of Abuse - Travel History Recent Travel in the [place] Within the Last 8 Weeks: No Recent Travel Out of the Country Within the Last 8 Weeks: No - Immunization History Tetanus Immunization: Never Vaccinated Hx Influenza Vaccine This Season: No Medications and Allergies Active Medications: Active Medications Al Hydroxide/Mg Hydroxide (Milk Of [place]un [place]) 30 ml PO DAILY PRN PRN Reason: CONSTIPATION Last Admin: 05/15/18 20:55 Dose: 30 ml Duloxetine HCl (Cymbalta) 40 mg PO DAILY [facility] Last Admin: 05/16/18 08:50 Dose: 40 mg Fentanyl (Duragesic 25 Mcg Patch.72hr) 1 patch T-DERMAL Q72H [facility] Last Admin: 05/13/18 22:36 Dose: Not Given Gabapentin (Neurontin) 300 mg PO HS [facility] Last Admin: 05/15/18 20:55 Dose: 300 mg Hydromorphone HCl (Dilaudid) 4 mg PO Q6H PRN PRN Reason: pain 3-10 Lorazepam (Ativan) 0.5 mg PO HS PRN PRN Reason: Anxiety Last Admin: 05/15/18 20:56 Dose: 0.5 mg Methadone HCl (Dolophine) 10 mg PO BID [facility] Last Admin: 05/16/18 08:50 Dose: 10 mg Ondansetron HCl (Zofran Odt) 4 mg PO Q4H PRN PRN Reason: n/v Patch Removal (Remove Old Patch) 1 each T-DERMAL Q72H [facility] Sodium Chloride (Ns Flush) 2 ml IV.FLUSH BID [facility] Last Admin: 05/16/18 08:50 Dose: 2 ml Sodium Chloride (Ns Flush) 2 ml IV.FLUSH PRN PRN PRN Reason: FLUSH AFTER USING IV ACCESS Last Admin: 05/14/18 21:06 Dose: 2 ml Allergies Allergy/AdvReac Type Severity Reaction Status Date / Time meperidine Allergy Severe Irritabilit Verified 05/10/18 15:43 y/Anxiety morphine Allergy Severe Irritabilit Verified 05/10/18 15:43 y/Anxiety oxycodone Allergy Severe ANXIETY Verified 05/10/18 15:43 Home Medications Medication Instructions Recorded Confirmed Type fentanyl 25 mcg TRANSDERMAL Q3-4D 02/05/18 05/13/18 History gabapentin 300 mg PO HS 02/25/18 05/13/18 History methadone 10 mg PO BID 02/25/18 05/13/18 History duloxetine 40 mg PO DAILY 05/10/18 05/13/18 History hydromorphone [Dilaudid] 4 mg PO Q6H PRN 05/10/18 05/13/18 History lorazepam 0.5 mg PO HS PRN 05/10/18 05/13/18 History losartan 50 mg PO DAILY 05/10/18 05/13/18 History metronidazole 375 mg PO TID 05/10/18 05/13/18 History ondansetron [Zofran ODT] 8 mg PO TID PRN 05/10/18 05/13/18 History Advance Directives Today's verbally stated goals: Patient verbalizing aggressive goals Ethical and Legal Issues: Per [place] statutes in the absence of written advanced directives healthcare proxy decision making falls to the patient's Physical Exam Vital Signs: Vital Signs - 24 hr 05/15/18 12:00 05/15/18 16:00 05/15/18 20:00 Temperature 97.3 F L 97.8 F 98.2 F Pulse Rate 101 H 98 H 99 H Respiratory Rate 18 18 18 Blood Pressure 134/75 124/61 126/72 Pulse Oximetry 91 L 94 L 95 05/15/18 21:55 05/16/18 00:00 05/16/18 04:00 Temperature 98.3 F 98.5 F Pulse Rate 100 H 97 H Respiratory Rate 20 20 18 Blood Pressure 126/74 119/72 Pulse Oximetry 93 L 93 L 05/16/18 07:57 05/16/18 08:00 Temperature 97.6 F 97.6 F Pulse Rate 125 H 125 H Respiratory Rate 18 18 Blood Pressure 163/88 H 163/88 H Pulse Oximetry 92 L I&O: Intake & Output 05/14/18 05/15/18 05/16/18 05/17/18 06:59 06:59 06:59 06:59 Intake Total 315 / 315 860 / 860 840 / 840 Output Total 300 / 300 Balance 315 / 315 560 / 560 840 / 840 Weight 48.8 kg 52.5 kg 48 kg Physical Exam: CONSTITUTIONAL/GENERAL: This is a frail, elderly female in no acute distress TUBES/LINES/DRAINS: PIV, VAD SKIN: No jaundice, rashes, or lesions. Ecchymoses on upper extremities. . Skin temperature appropriate. Not diaphoretic. HEAD: Atraumatic. Normocephalic. EYES: Pupils equal and round and reactive. Extraocular motions intact. No scleral icterus. No injection or drainage. Fundi not examined. ENT: Hearing grossly normal. Nose without bleeding or purulent drainage. Throat without visible erythema, exudates, masses, or lesions. NECK: Trachea midline. Supple, nontender. No palpable thyroid enlargement or nodularity. CARDIOVASCULAR: Regular rate and rhythm without murmurs, gallops, or rubs. RESPIRATORY/CHEST: Symmetric, unlabored respirations. Clear to auscultation. Breath sounds equal bilaterally. No wheezes, rales, or rhonchi. GASTROINTESTINAL: Abdomen soft, non-tender, nondistended. Bowel sounds present. GENITOURINARY: Without palpable bladder distension. MUSCULOSKELETAL: Extremities without cyanosis or mottling. Left upper extremity with lymphedema, dressing dry and intact LYMPHATICS: No palpable cervical or supraclavicular adenopathy. NEUROLOGICAL: Awake and alert. Motor and sensory grossly within normal limits. Follows commands. Cognitively sharp. Moves all extremities. PSYCHIATRIC: No obvious anxiety/depression. No apparent hallucinations or other psychotic thought process. Diagnostic Tests Laboratory: Laboratory Results - last 72 hr 05/13/18 05/13/18 05/13/18 16:40 16:45 16:45 WBC 11.4 H RBC 2.99 L Hgb 10.0 L Hct 29.7 L MCV 99.6 MCH 33.7 MCHC 33.8 RDW 16.9 Plt Count 375 MPV 7.5 Neut % (Auto) 89.8 H Lymph % (Auto) 1.8 L Ellis % (Auto) 8.3 H Eos % (Auto) 0.0 Baso % (Auto) 0.1 Neut # (Auto) 10.2 H Lymph # (Auto) 0.2 L Ellis # (Auto) 0.9 Eos # (Auto) 0.0 Baso # (Auto) 0.0 WBC Differential . Differential Comment Auto diff final Sodium 127 L Potassium 4.7 Chloride 89 L Carbon Dioxide 29.3 Anion Gap 9 BUN 26 H Creatinine 0.91 Estimated GFR 59 L Random Glucose 107 H Lactic Acid 1.8 Calcium 8.7 Total Bilirubin 0.4 AST 31 ALT 18 Alkaline Phosphatase 97 Total Protein 7.4 D Albumin 2.3 L 05/14/18 05:13 WBC RBC Hgb Hct MCV MCH MCHC RDW Plt Count MPV Neut % (Auto) Lymph % (Auto) Ellis % (Auto) Eos % (Auto) Baso % (Auto) Neut # (Auto) Lymph # (Auto) Ellis # (Auto) Eos # (Auto) Baso # (Auto) WBC Differential Differential Comment Sodium 129 L Potassium 4.9 Chloride 93 L Carbon Dioxide 27.7 Anion Gap 8 BUN 23 H Creatinine 0.82 Estimated GFR 67 L Random Glucose 85 Lactic Acid Calcium 8.1 L Total Bilirubin AST ALT Alkaline Phosphatase Total Protein Albumin Result Diagrams: 05/13/18 16:45 05/14/18 05:13 Microbiology: Microbiology 05/13/18 16:45 Aerobic Blood Culture - Preliminary Blood - Peripheral No growth in 2 days Anaerobic Blood Culture - Preliminary No growth in 2 days 05/13/18 16:40 Aerobic Blood Culture - Preliminary Blood - Peripheral No growth in 2 days Anaerobic Blood Culture - Preliminary No growth in 2 days Imaging: Chest X-Ray 05/13/18 15:54 CONCLUSION: Left pleural effusion left lung base consolidation not significantly changed. Patient/Family Conference Present at Family Conference: Met with patient at bedside. Velvet Donovan palliative care RIDING COACH. was also present Family Conference Location: Bedside Issues Discussed: * Palliative care role, purpose, approach * Additional medical, psychosocial, and spiritual history * Patients general health, functional status, and cognitive changes in the months leading up to the current hospitalization * Patient/family understanding of the current medical problems * Patient/family understanding of prognosis * Patients goals of care as best understood from advance directives and/or conversations and/or values * Current medical treatment options and benefits/burdens of those options * Likely scenarios comparing ongoing aggressive care with a transition to comfort measures only * Questions answered to the best of my ability * Palliative care contact information provided Assessment and Plan Pertinent Non-Medical Issues: Psychosocial: Patient was born in [facility] but has lived in [place] for approximately 15 years. She is and lives with her . They have no children. 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 Per [place] statutes, in the absence of written advanced directives healthcare proxy decision making falls to the patient's . Ethical issues impacting care: No known ethical issues impacting care at this time. Important Contacts: Chi Whaley, : [phone] Prognosis: Patient is an 82-year-old female with extensive metastatic breast cancer. She has had disease progression despite multiple lines of therapy. Admitted with weeping wounds on the left arm. She appears quite frail and cachectic. Given patient's advanced age, progressive cancer and poor functioning status, she is at high risk for ongoing decline. If/when her medical treatment goals become comfort oriented, hospice would be an appropriate option at that time. Code Status: Full Code Plan: * FULL CODE * Patient currently has good insight and judgment toward her medical conditions. Per [place] statutes, in the absence of written advanced directives healthcare proxy decision making falls to the patient's . * Patient verbalizing ongoing AGGRESSIVE GOALS, however states her has been struggling and she does not know what the plan is anymore. * 5 wishes booklet was left at the patient's bedside; will need further discussions with the palliative care team to clarify medical treatment goals. If /when her medical treatment goals become comfort oriented, hospice would be an appropriate option at that time. * Discussed patient with nurse, Nohelia (manager background), Sharifa Maloney (Hemoc/Onc QUALITY CONTROL TECH) Dr. Marcelino and ARTHUR Ma * Dual visit with Palliative Care RIDING COACH, Velvet Donovan. Palliative care contact information was provided to the patient. * Symptom management: Pain: Patient complains of pain in her left arm which can be severe at times, but states she is satisfied with her current medication regimen. She currently receives methadone 10mg PO 2 times daily, Duragesic patch 25mcg and gabapentin 300 mg qHS. PRN Dilaudid is ordered but has not been utilized. She is followed by pain management outpatient. Constipation: Patient reports constipation that she associates with her pain management. Other contributing factors may include inadequate dietary fiber or fluid intake, decreased activity, inadequate privacy, metabolic disorder secondary to cancer. Current orders for milk of magnesia daily PRN. LBM: 06/15/2018. Will monitor; consider starting the patient on scheduled senna-s or adding PRN medications as needed. * Palliative care will continue to follow this patient throughout her hospitalization to establish trust, assist with symptom management and clarification of medical treatment goals. Appreciation Thank you for the opportunity to participate in the care of Jeri Whaley. Attestation Attestation: To help prompt me to consider important information that might be impacting today's encounter and assessment, information from prior notes written by myself or my colleagues may have been "brought forward" into today's note. My signature on this note, however, is an attestation that I personally performed the exam, history, and/or decision-making noted today, and, unless otherwise indicated, the interactions with patient, family, and staff as well as the review of records all occurred today. I also attest that the listed assessment and stated plan reflect my best clinical judgment today based on the combination of historical information, prior notes, and today's exam/ interactions. When time spent is documented, it refers only to time spent today by the signer, or if indicated, combined time spent today by collaborating physician/nurse practitioner.
--- NOTE | 2018-05-16 11:19 | P.PNIM ---
Subjective Interval history: Per pt, left arm pain is controlled. Pt states less pain & drainage utilizing surgicel dressing. Pt is tolerating PO intake without n/v/d. Physical Exam Vital signs: 05/16/18 07:57 05/16/18 08:00 05/16/18 10:00 Temperature 97.6 F 97.6 F 97.8 F Pulse Rate 125 H 136 H 104 H Respiratory Rate 18 18 18 Blood Pressure 163/88 H 163/88 H 123/64 Pulse Oximetry 92 L Narrative: GENERAL: This is a well-nourished, well-developed patient, in no apparent distress. CARDIOVASCULAR: Regular rate and rhythm without murmurs, gallops, or rubs. RESPIRATORY: Clear to auscultation. Breath sounds equal bilaterally. No wheezes , rales, or rhonchi. GASTROINTESTINAL: Abdomen soft, non-tender, nondistended. Normal active bowel sounds MUSCULOSKELETAL: left arm bandaged. NEURO: Alert & Oriented x4 to person, place, time, situation. Moves all ext x4 Results - Labs CBC & Chem 7: 05/17/18 14:00 05/17/18 14:00 05/13/18 16:45 Blood - Peripheral Aerobic Blood Culture - Preliminary No growth in 3 days 05/13/18 16:45 Blood - Peripheral Anaerobic Blood Culture - Preliminary No growth in 3 days 05/13/18 16:40 Blood - Peripheral Aerobic Blood Culture - Preliminary No growth in 3 days 05/13/18 16:40 Blood - Peripheral Anaerobic Blood Culture - Preliminary No growth in 3 days - Imaging Chest X-Ray 05/13/18 15:54 Left pleural effusion left lung base consolidation not significantly changed. 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 Pt follows with Dr. Grove and had been treated with multiple lines of chemotherapy . Pt also with hx of DVT on Xarelto and had in December 2017 a new DVT in left subclavian vein, axillary vein, and possibly jugular vein. Pt has been dealing with severe lymphedema left arm. She has had outpt evaluation with surgical and wound care teams. She has tried compression. She presents her with swelling/oozing of fluid and blood from the left arm. It is a large open wound over the left arm. Discussed with DR Hurst and decided to try wrapping the arm with surgicel. This morning there is still some leakage through but seems to be containing the drainage for the most part - Case d/w Palliative medicine team (05/16/18). Palliative will consult today. - Case d/w Dr. Grove (05/16/18). Pt receiving immunotherapy. Pt has only received initial (one) IV immunotherapy treatment, eventually frequency will decrease to monthly. - Case d/w CP Wound Care. - Continue Surgicel - Pt can have dressing changes with wound care 2-3x/week - Decane's solution along with Surgicel? - Case d/w CP Case Mgmt. - will need to arrange for daily dressing changes via wound care clinic & [facility] - Will need to arrange for coverage for Surgicel, iff possible - continue pain control. - xarelto stopped - SCDs for DVT prophylaxis - supportive care (2) Lymphedema of left arm Code(s): I89.0 - Lymphedema, not elsewhere classified Status: Acute (3) Metastatic breast cancer Code(s): C50.919 - Malignant neoplasm of unspecified site of unspecified female breast Status: Chronic
--- NOTE | 2018-05-16 13:20 | P.PNONC ---
Subjective Interval history: Patient lying in bed, no acute distress. Reports productive cough with clear mucus and intermittent shortness of breath. Left arm dressing change this a.m. and patient feels Surgicel is helping, however stating "it is just expensive and hard to get" Objective Vital Signs/Intake & Output: Vital Signs 05/15/18 16:00 05/15/18 20:00 05/15/18 21:55 Temperature 97.8 F 98.2 F Pulse Rate 98 H 99 H Respiratory Rate 18 18 20 Blood Pressure 124/61 126/72 Pulse Oximetry 94 L 95 05/16/18 00:00 05/16/18 04:00 05/16/18 07:57 Temperature 98.3 F 98.5 F 97.6 F Pulse Rate 100 H 97 H 125 H Respiratory Rate 20 18 18 Blood Pressure 126/74 119/72 163/88 H Pulse Oximetry 93 L 93 L 92 L 05/16/18 08:00 05/16/18 10:00 05/16/18 12:00 Temperature 97.6 F 97.8 F 98.2 F Pulse Rate 136 H 104 H 111 H Respiratory Rate 18 18 17 Blood Pressure 163/88 H 123/64 117/66 Pulse Oximetry 93 L Intake & Output 05/15/18 05/16/18 05/16/18 18:59 06:59 18:59 Intake Total 480 / 480 360 / 360 Balance 480 / 480 360 / 360 Weight 48 kg Intake: Oral 480 / 480 360 / 360 Other: # Voids 4 1 Date of Last Bowel Movement 05/13/18 05/13/18 # Bowel Movements 0 Result Diagrams: 05/13/18 16:45 05/14/18 05:13 Culture Results: Microbiology 05/13/18 16:45 Aerobic Blood Culture - Preliminary Blood - Peripheral No growth in 3 days Anaerobic Blood Culture - Preliminary No growth in 3 days 05/13/18 16:40 Aerobic Blood Culture - Preliminary Blood - Peripheral No growth in 3 days Anaerobic Blood Culture - Preliminary No growth in 3 days Medications: Active Medications Generic Name Dose Route Start Last Admin Trade Name Freq PRN Reason Stop Dose Admin Al Hydroxide/Mg Hydroxide 30 ml 05/15/18 20:04 05/15/18 20:55 Milk Of Magnesia Liq PO 30 ml DAILY PRN Administration CONSTIPATION Duloxetine HCl 40 mg 05/14/18 09:00 05/16/18 08:50 Cymbalta PO 40 mg DAILY ARIELLE Administration Fentanyl 1 patch 05/13/18 18:00 05/13/18 22:36 Duragesic 25 Mcg Patch.72hr T-DERMAL Not Given Q72H ARIELLE Gabapentin 300 mg 05/13/18 21:00 05/15/18 20:55 Neurontin PO 300 mg HS ARIELLE Administration Lorazepam 0.5 mg 05/13/18 17:37 05/15/18 20:56 Ativan PO 0.5 mg HS PRN Administration Anxiety Methadone HCl 10 mg 05/13/18 21:00 05/16/18 08:50 Dolophine PO 10 mg BID ARIELLE Administration Sodium Chloride 2 ml 05/14/18 09:00 05/16/18 08:50 Ns Flush IV.FLUSH 2 ml BID ARIELLE Administration Sodium Chloride 2 ml 05/14/18 06:28 05/14/18 21:06 Ns Flush IV.FLUSH 2 ml PRN PRN Administration FLUSH AFTER USING IV ACCESS Objective Remarks: GENERAL: Chronically ill-appearing elderly female patient, in no acute distress. SKIN: Warm and dry. Chest with multiple surgical scars. HEAD: Normocephalic. EYES: No scleral icterus. No injection or drainage. NECK: Supple, trachea midline. CARDIOVASCULAR: Regular rate and rhythm without murmurs. RESPIRATORY: Breath sounds clear, equal bilaterally. Nonlabored at rest. GASTROINTESTINAL: Abdomen soft, non-tender, nondistended. EXTREMITIES: No cyanosis, or edema. Left arm with dry gauze dressing in place to entire LUE. MUSCULOSKELETAL: Adequate muscle tone. NEUROLOGICAL: No obvious focal deficit. Awake, alert, and oriented x3. PSYCHIATRIC: Appropriate mood and affect; insight and judgment normal. Assessment/Plan - Plan 82-year-old female with metastatic breast cancer who has progressed on multiple lines of therapy, currently on checkpoint inhibitor with nivolumab. Admitted with weeping wounds from left arm. 1. Surgicel to left arm to control drainage. Management per wound care. 2. S/P completion of 5 double radiation treatments last Wednesday. Further treatment will be discussed outpatient 3. Patient with history of DVT, was on Xarelto, however review of her chart, she does not appear to have been on this medication during this hospitalization or on her home medication reconciliation. Attendings note reports this was stopped, presumably secondary to wound/bleeding. Will confirm with patient. 4. Continue supportive care. - Attending Statement The exam, history, and the medical decision-making described in the above note were completed with the assistance of the mid-level provider. I reviewed and agree with the findings presented. I attest that I had a [id number] encounter with the patient on the same day, and personally performed and documented my assessment and findings in the medical record. Discussed with Dr. Marcelino at length the problem of providing wound care via home care daily. Second problem of the availability of Surgicel which seems to be helping with hemostasis to the wound. No signs of infection. We discussed there are change in the wound to poorly related to receiving her first dose of Nivolumab. There is significant decrease in the swelling of the arm. That is when the weeping began that brought her into the emergency room. Noted also is suggestion of response with erythema along the nodules on a chest wall that was not in the radiation field. She denies any fevers chills or night sweats. She is encouraged and wants to continue treatment with Nivolumab. For this to recur she will need support with home care and wound care to change her wound. She is unable to do it herself given she only has one arm that function. Her pain for the most part is controlled. We will continue to hold the Xarelto in light of the bleeding wound.
[2018-05-16] MEDS: LORazepam 0.5 MG Tablet PO PRN (20:28)
[2018-05-16] MEDS: Gabapentin 300 MG Capsule PO SCH (20:28)
[2018-05-17] MEDS: Sodium Chloride 0.9% 2 ML Flush BID IV.FLUSH SCH ×2 (08:48→20:11)
[2018-05-17] MEDS: Methadone 10 MG Tablet PO SCH ×2 (08:48→20:10)
--- NOTE | 2018-05-17 13:19 | P.PNONC ---
Subjective Interval history: Patient lying in bed, with eyes closed on approach. Awakens easily to voice. Patient reports generalized weakness today. She states she is having difficulty ambulating from the bed to the bathroom. She reports the weeping from left arm has decreased. Dressing was changed this a.m. Objective Vital Signs/Intake & Output: Vital Signs 05/16/18 16:00 05/16/18 20:00 05/17/18 00:00 Temperature 97.8 F 97.8 F 98.2 F Pulse Rate 107 H 107 H 107 H Respiratory Rate 17 15 14 Blood Pressure 118/62 126/60 130/66 Pulse Oximetry 93 L 96 95 05/17/18 04:00 05/17/18 08:00 Temperature 97.9 F 98 F Pulse Rate 102 H 107 H Respiratory Rate 18 16 Blood Pressure 128/68 126/66 Pulse Oximetry 98 93 L Intake & Output 05/16/18 05/17/18 05/17/18 18:59 06:59 18:59 Intake Total 360 / 360 240 / 240 Output Total 200 / 200 400 / 400 Balance 160 / 160 -160 / -160 Weight 47.2 kg Intake: Oral 360 / 360 240 / 240 Output: Urine 200 / 200 400 / 400 Other: # Bowel Movements 0 Result Diagrams: 05/13/18 16:45 05/14/18 05:13 Culture Results: Microbiology 05/13/18 16:45 Aerobic Blood Culture - Preliminary Blood - Peripheral No growth in 4 days Anaerobic Blood Culture - Preliminary No growth in 4 days 05/13/18 16:40 Aerobic Blood Culture - Preliminary Blood - Peripheral No growth in 4 days Anaerobic Blood Culture - Preliminary No growth in 4 days Medications: Active Medications Generic Name Dose Route Start Last Admin Trade Name Freq PRN Reason Stop Dose Admin Al Hydroxide/Mg Hydroxide 30 ml 05/15/18 20:04 05/15/18 20:55 Milk Of Magnesia Liq PO 30 ml DAILY PRN Administration CONSTIPATION Duloxetine HCl 40 mg 05/14/18 09:00 05/17/18 08:47 Cymbalta PO 40 mg DAILY ARIELLE Administration Fentanyl 1 patch 05/13/18 18:00 05/16/18 17:51 Duragesic 25 Mcg Patch.72hr T-DERMAL 1 patch Q72H ARIELLE Administration Gabapentin 300 mg 05/13/18 21:00 05/16/18 20:28 Neurontin PO 300 mg HS ARIELLE Administration Lorazepam 0.5 mg 05/13/18 17:37 05/16/18 20:28 Ativan PO 0.5 mg HS PRN Administration Anxiety Methadone HCl 10 mg 05/13/18 21:00 05/17/18 08:48 Dolophine PO 10 mg BID ARIELLE Administration Patch Removal 1 each 05/16/18 18:00 05/16/18 17:53 Remove Old Patch T-DERMAL 1 each Q72H ARIELLE Administration Sodium Chloride 2 ml 05/14/18 09:00 05/17/18 08:48 Ns Flush IV.FLUSH 2 ml BID ARIELLE Administration Sodium Chloride 2 ml 05/14/18 06:28 05/14/18 21:06 Ns Flush IV.FLUSH 2 ml PRN PRN Administration FLUSH AFTER USING IV ACCESS Objective Remarks: GENERAL: Chronically ill-appearing elderly female patient, in no acute distress. SKIN: Warm and dry. Chest with multiple surgical scars and radiation braun. HEAD: Normocephalic. EYES: No scleral icterus. No injection or drainage. NECK: Supple, trachea midline. CARDIOVASCULAR: Regular rate and rhythm without murmurs. RESPIRATORY: Breath sounds clear, equal bilaterally. Nonlabored at rest. GASTROINTESTINAL: Abdomen soft, non-tender, nondistended. EXTREMITIES: No cyanosis, or edema. Gauze dressing in place to entire LUE. MUSCULOSKELETAL: Decreased muscle tone. NEUROLOGICAL: No obvious focal deficit. Awake, alert, and oriented x3. PSYCHIATRIC: Appropriate mood and affect; insight and judgment normal. Assessment/Plan - Plan 82-year-old female with metastatic breast cancer who has progressed on multiple lines of therapy, currently on checkpoint inhibitor with nivolumab. Admitted with weeping wounds from left arm. 1. Surgicel to left arm to control drainage. Management per wound care. 2. S/P completion of 5 double radiation treatments last Wednesday. Further treatment will be discussed outpatient 3. Patient with history of DVT, was on Xarelto, currently on hold due to bleeding left arm wound. 4. Patient reports generalized weakness and difficulty ambulating from bed to bathroom. Consult placed to physical therapy for evaluation. We will check CBC and CMP as it has been a few days since she has had lab work. 5. Continue supportive care.
[2018-05-17 14:44] LABS: Baso % (Auto) 0.1 % (0.0-2.0); Eos % (Auto) 0.4 % (0.0-4.0); Hemoglobin 9.8 gm/dL (11.6-15.3); Lymph # (Auto) 0.1 th/mm3 (1.0-4.8); Lymph % (Auto) 0.8 % (9.0-44.0); Mean Corpuscular HGB Conc 33.8 % (32.0-36.0); Mean Corpuscular Hemoglobin 33.1 pg (27.0-34.0); Mean Corpuscular Volume 97.8 fL (80.0-100.0); Mean Platelet Volume 7.8 fL (7.0-11.0); Mono # (Auto) 1.1 th/mm3 (0.0-0.9); Mono % (Auto) 10.5 % (0.0-8.0); Neut % (Auto) 88.2 % (16.0-70.0); Platelet Count 290 th/mm3 (150-450); Red Blood Count 2.96 mil/mm3 (4.00-5.30); Red Cell Distribution Width 16.8 % (11.6-17.2); White Blood Count 10.2 th/mm3 (4.0-11.0)
[2018-05-17 15:09] LABS: Alanine Aminotransferase 14 U/L (10-53); Albumin 1.9 g/dL (3.4-5.0); Anion Gap 9 meq/L (5-15); Aspartate Aminotransferase 21 U/L (15-37); Blood Urea Nitrogen 25 mg/dL (7-18); Calcium 8.1 mg/dL (8.5-10.1); Carbon Dioxide 26.1 meq/L (21.0-32.0); Chloride 93 meq/L (98-107); Glomerular Filtration Rate 65 mL/min (>89); Glucose,Random 104 mg/dL (74-106); Potassium 5.2 meq/L (3.5-5.1); Sodium 128 meq/L (136-145)
[2018-05-17 15:12] LABS: Alkaline Phosphatase 97 U/L (45-117); Total Protein 6.2 g/dL (6.4-8.2)
--- NOTE | 2018-05-17 15:26 | P.PNIM ---
Subjective Interval history: No new complaints. Physical Exam Vital signs: 05/17/18 04:00 05/17/18 08:00 05/17/18 12:00 Temperature 97.9 F 98 F 98.1 F Pulse Rate 102 H 107 H 113 H Respiratory Rate 18 16 16 Blood Pressure 128/68 126/66 110/66 Pulse Oximetry 98 93 L 95 Narrative: GENERAL: This is a well-nourished, well-developed patient, in no apparent distress. CARDIOVASCULAR: Regular rate and rhythm without murmurs, gallops, or rubs. RESPIRATORY: Clear to auscultation. Breath sounds equal bilaterally. No wheezes , rales, or rhonchi. GASTROINTESTINAL: Abdomen soft, non-tender, nondistended. Normal active bowel sounds MUSCULOSKELETAL: left arm bandaged. NEURO: Alert & Oriented x4 to person, place, time, situation. Moves all ext x4 Results - Labs CBC & Chem 7: 05/17/18 14:00 05/18/18 05:07 05/13/18 16:45 Blood - Peripheral Aerobic Blood Culture - Preliminary No growth in 4 days 05/13/18 16:45 Blood - Peripheral Anaerobic Blood Culture - Preliminary No growth in 4 days 05/13/18 16:40 Blood - Peripheral Aerobic Blood Culture - Preliminary No growth in 4 days 05/13/18 16:40 Blood - Peripheral Anaerobic Blood Culture - Preliminary No growth in 4 days - Imaging Chest X-Ray 05/13/18 15:54 Left pleural effusion left lung base consolidation not significantly changed. 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 Pt follows with Dr. Grove and had been treated with multiple lines of chemotherapy . Pt also with hx of DVT on Xarelto and had in December 2017 a new DVT in left subclavian vein, axillary vein, and possibly jugular vein. Pt has been dealing with severe lymphedema left arm. She has had outpt evaluation with surgical and wound care teams. She has tried compression. She presents her with swelling/oozing of fluid and blood from the left arm. It is a large open wound over the left arm. Discussed with DR Hurst and decided to try wrapping the arm with surgicel. This morning there is still some leakage through but seems to be containing the drainage for the most part - Case d/w Palliative medicine team (05/16/18). Palliative will consult today. - Case d/w Dr. Grove (05/16/18). Pt receiving immunotherapy. Pt has only received initial (one) IV immunotherapy treatment, eventually frequency will decrease to monthly. - Case d/w CP Wound Care. (05/17) - Continue Surgicel - Pt can have dressing changes with wound care daily - Case d/w General Surgery, Dr. Lewis Hurst, (05/16/18). - continue pain control. - xarelto stopped - SCDs for DVT prophylaxis - supportive care - BMP showed NA 129, K 5.2 (05/17) - give kayexalate - repeat BMP 05/18 - await PT evaluation - anticipate d/c to home 05/18 with C daily for dressing changes to the left arm utilizing - surgicel (nu-knit) to bleeding areas - then cover with ABD pads - then cover with kerlex - then place stockinet (2) Lymphedema of left arm Code(s): I89.0 - Lymphedema, not elsewhere classified Status: Acute (3) Metastatic breast cancer Code(s): C50.919 - Malignant neoplasm of unspecified site of unspecified female breast Status: Chronic
--- NOTE | 2018-05-17 15:29 | P.DCO ---
- Diagnosis (1) Open wound of left upper extremity Status: Acute (2) Lymphedema of left arm Status: Acute (3) Metastatic breast cancer Status: Chronic - Physical Therapy Order: Evaluate and treat, Improve ambulation, Strength and gait training - Home Health Nursing Order: Medical education, Signs/symptoms of disease process, Medication education-adverse effect, Wound care and dressing changes, Nursing assessment with vital signs Instructions: Pt will require daily dressing changes to her left arm utilizing - surgicel (nu-knit) to bleeding areas - then cover with ABD pads - then cover with kerlex - then place stockinet - Self Sealing Fuel Tank Builder Order: To evaluate: Living conditions/environment, Support services Order: To provide: Long range planning, Community services - Case Management Consult Yes - Certification I have seen patient Jeri Whaley on 05/17/18. My clinical findings support the need for the requested home health care services because: Limited mobility due to disease progression, Deconditioned with increased weakness, Medication compliance is questionable, Limited ability to care for self, Need for psychosocial assistance I certify that my clinical findings support that this patient is homebound because: Impaired cognitive ability/safety, Unsafe to leave home unassisted, Need for psychosocial assistance, Unable to use public transportation
[2018-05-17] MEDS ORDERED: Sodium Polystyrene Sulfonate/Sorbitol Liq 15 GM/60 ML UDC PO ONE (16:00)
--- NOTE | 2018-05-17 16:21 | P.PNPAL ---
Reason for Visit Reason for visit: a. To assist with evaluation and management of symptoms including: pain, constipation b. To assist medical decision maker(s) with: better understanding of current medical conditions; weighing benefits/burdens of medical treatment options; making medical treatment decisions. Subjective Subjective/Interval History: Mrs. Whaley is an 82 year old female with a history of lymphedema, history of DVT and recurrent breast cancer. Patient presented to [facility] ED on 05/13/2018 for evaluation of weeping wounds in the left upper extremity. She was evaluated by a home health/wound care nurse today who recommended she come to the ED to be evaluated because the wounds were worsening. Follow up visit with Velvet Donovan, Palliative SUPERVISOR SOUND TECHNICIAN, for symptom management. Patient reports less pain in her left arm. Options in managing pain were previously discussed, but the patient stated she is satisfied with her current medication regimen. She is followed by pain management outpatient. She currently receives methadone 10mg PO 2 times daily, Duragesic patch 25mcg and gabapentin 300 mg qHS. PRN Dilaudid is ordered but has not been utilized. The process of cardiopulmonary resuscitation was discussed at length with the patient. Patient understands that she is terminally ill stating, "I am not ready to , but I know I'm getting closer. She verbalizes aggressive goals up to the point of cardiopulmonary resuscitation. She requests in the event that she stops breathing or her heart stops beating, she be allowed to pass peacefully and naturally at that time. Objective Vital Signs: Vital Signs 05/16/18 20:00 05/17/18 00:00 05/17/18 04:00 Temperature 97.8 F 98.2 F 97.9 F Pulse Rate 107 H 107 H 102 H Respiratory Rate 15 14 18 Blood Pressure 126/60 130/66 128/68 Pulse Oximetry 96 95 98 05/17/18 08:00 05/17/18 12:00 05/17/18 16:11 Temperature 98 F 98.1 F 97.9 F Pulse Rate 107 H 113 H 112 H Respiratory Rate 16 16 18 Blood Pressure 126/66 110/66 121/77 Pulse Oximetry 93 L 95 95 Intake & Output 05/16/18 05/17/18 05/17/18 18:59 06:59 18:59 Intake Total 360 / 360 240 / 240 Output Total 200 / 200 400 / 400 Balance 160 / 160 -160 / -160 Weight 47.2 kg Intake: Oral 360 / 360 240 / 240 Output: Urine 200 / 200 400 / 400 Other: # Bowel Movements 0 Physical Exam: CONSTITUTIONAL/GENERAL: This is a frail, elderly female in no acute distress TUBES/LINES/DRAINS: PIV, VAD SKIN: No jaundice, rashes, or lesions. Ecchymoses on upper extremities. . Skin temperature appropriate. Not diaphoretic. HEAD: Atraumatic. Normocephalic. EYES: Pupils equal and round and reactive. Extraocular motions intact. No scleral icterus. No injection or drainage. Fundi not examined. ENT: Hearing grossly normal. Nose without bleeding or purulent drainage. Throat without visible erythema, exudates, masses, or lesions. NECK: Trachea midline. Supple, nontender. No palpable thyroid enlargement or nodularity. CARDIOVASCULAR: Regular rate and rhythm without murmurs, gallops, or rubs. RESPIRATORY/CHEST: Symmetric, unlabored respirations. Clear to auscultation. Breath sounds equal bilaterally. No wheezes, rales, or rhonchi. GASTROINTESTINAL: Abdomen soft, non-tender, nondistended. Bowel sounds present. GENITOURINARY: Without palpable bladder distension. MUSCULOSKELETAL: Extremities without cyanosis or mottling. Left upper extremity with lymphedema, dressing dry and intact LYMPHATICS: No palpable cervical or supraclavicular adenopathy. NEUROLOGICAL: Awake and alert. Motor and sensory grossly within normal limits. Follows commands. Cognitively sharp. Moves all extremities. PSYCHIATRIC: No obvious anxiety/depression. No apparent hallucinations or other psychotic thought process. Diagnostic Tests Laboratory: Laboratory Results - last 72 hr 05/17/18 05/17/18 14:00 14:00 WBC 10.2 RBC 2.96 L Hgb 9.8 L Hct 29.0 L MCV 97.8 MCH 33.1 MCHC 33.8 RDW 16.8 Plt Count 290 MPV 7.8 Neut % (Auto) 88.2 H Lymph % (Auto) 0.8 L [place] % (Auto) 10.5 H Eos % (Auto) 0.4 Baso % (Auto) 0.1 Neut # (Auto) 9.0 H Lymph # (Auto) 0.1 L [place] # (Auto) 1.1 H Eos # (Auto) 0.0 Baso # (Auto) 0.0 WBC Differential . Differential Comment Auto diff final Sodium 128 L Potassium 5.2 H Chloride 93 L Carbon Dioxide 26.1 Anion Gap 9 BUN 25 H Creatinine 0.84 Estimated GFR 65 L Random Glucose 104 Calcium 8.1 L Total Bilirubin 0.3 AST 21 ALT 14 Alkaline Phosphatase 97 Total Protein 6.2 L D Albumin 1.9 L Result Diagrams: 05/17/18 14:00 05/17/18 14:00 Microbiology: Microbiology 05/13/18 16:45 Aerobic Blood Culture - Preliminary Blood - Peripheral No growth in 4 days Anaerobic Blood Culture - Preliminary No growth in 4 days 05/13/18 16:40 Aerobic Blood Culture - Preliminary Blood - Peripheral No growth in 4 days Anaerobic Blood Culture - Preliminary No growth in 4 days Assessment and Plan Pertinent Non-Medical Issues: Psychosocial: Patient was born in [facility] but has lived in [place] for approximately 15 years. She is and lives with her . They have no children. 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 Per [place] statutes, in the absence of written advanced directives healthcare proxy decision making falls to the patient's . Ethical issues impacting care: No known ethical issues impacting care at this time. Important Contacts: Chi Whaley, : [phone] Prognosis: Patient is an 82-year-old female with extensive metastatic breast cancer. She has had disease progression despite multiple lines of therapy. Admitted with weeping wounds on the left arm. She appears quite frail and cachectic. Given patient's advanced age, progressive cancer and poor functioning status, she is at high risk for ongoing decline. If/when her medical treatment goals become comfort oriented, hospice would be an appropriate option at that time. Code Status: Full Code Plan: * FULL CODE * Patient currently has good insight and judgment toward her medical conditions. Per [place] statutes, in the absence of written advanced directives healthcare proxy decision making falls to the patient's . * Patient verbalizing ongoing AGGRESSIVE GOALS, however states her has been struggling and she does not know what the plan is anymore. * 5 wishes booklet was left at the patient's bedside; will need further discussions with the palliative care team to clarify medical treatment goals. If /when her medical treatment goals become comfort oriented, hospice would be an appropriate option at that time. * Discussed patient with nurse, Nohelia (deputy manager), Sharifa Maloney (Hemoc/Onc BIOPHYSICS PROFESSOR) Dr. Marcelino and ARTHUR Ma * Dual visit with Palliative Care SUPERVISOR SOUND TECHNICIAN, Velvet Donovan. Palliative care contact information was provided to the patient. * Symptom management: Pain: Patient complains of pain in her left arm which can be severe at times, but states she is satisfied with her current medication regimen. She currently receives methadone 10mg PO 2 times daily, Duragesic patch 25mcg and gabapentin 300 mg qHS. PRN Dilaudid is ordered but has not been utilized. She is followed by pain management outpatient. Constipation: Patient reports constipation that she associates with her pain management. Other contributing factors may include inadequate dietary fiber or fluid intake, decreased activity, inadequate privacy, metabolic disorder secondary to cancer. Current orders for milk of magnesia daily PRN. LBM: 06/15/2018. Will monitor; consider starting the patient on scheduled senna-s or adding PRN medications as needed. * Palliative care will continue to follow this patient throughout her hospitalization to establish trust, assist with symptom management and clarification of medical treatment goals.
[2018-05-17] MEDS: LORazepam 0.5 MG Tablet PO PRN (20:10)
[2018-05-17] MEDS: Gabapentin 300 MG Capsule PO SCH (20:11)
[2018-05-18 05:39] LABS: Calcium 8.3 mg/dL (8.5-10.1); Carbon Dioxide 26.7 meq/L (21.0-32.0); Potassium 4.2 meq/L (3.5-5.1)
[2018-05-18] MEDS: Methadone 10 MG Tablet PO SCH ×2 (08:51→20:10)
[2018-05-18] MEDS: Sodium Chloride 0.9% 2 ML Flush BID IV.FLUSH SCH ×2 (08:52→20:16)
--- NOTE | 2018-05-18 10:53 | P.DS ---
<Carla Wetzel W - Last Filed: 05/18/18 14:58> Date of admission: 05/13/18 17:34 Primary care physician: Keke Chapa MD Attending physician on discharge: Luis Marcelino Anticipated date of discharge: 05/19/18 Brief History from admission: From Consult by Dr. Castañeda: Ms. Whaley is an 82-year-old lady who follows closely in clinic with my partner, Dr. Grove for breast cancer. She has an extensive breast cancer and it will be detailed below. She was initially seen on 02/25/2016. She presented in 2001 with palpable breast mass, which showed high-grade infiltrating ductal carcinoma. Lumpectomy in 02/2002, pathology showed T1c N0 M0, ER positive, UT positive, HER2 negative breast cancer. She was treated with breast irradiation and tamoxifen, followed by Arimidex in 03/2007, and she was treated with an additional 5 years of AI. She stopped due to toxicity in 09/2008. Her course was complicated by osteopenia and osteoporosis. In 2011, she developed an irregular density in the left upper breast. She had a second primary invasive poorly differentiated carcinoma, ER negative, UT negative, HER2 negative. No evidence of distant metastatic disease. She had a left mastectomy and the pathology showed T2 N1 microscopic M0. This was complicated by left breast cellulitis. Adjuvant chemotherapy with Taxotere and Cytoxan with Neulasta. Recurrence 01/23/2016 with axillary mass. She received chest wall radiation for localized chest disease. Considered a surgical resection; however, she was seen at the by Dr. Salcido and a surgical resection would require losing her left arm. She had some local control of her disease post-radiation, but afterwards she developed progression of her disease, brachial plexopathy and loss of function of the left arm. She also had left upper extremity DVT and has been on chronic anticoagulation therapy. She has chronic hoarseness from progression of disease in her left neck. She was treated with cisplatin and study medication ABT [id number] under clinical trial. She progressed. She was then placed on single agent Doxil and then had progression of disease. She has had wrapping and dressing of the left arm, and topical Flagyl. Unfortunately, she has had no improvement in her symptoms. She is currently being treated with nivolumab under Dr. Grove. She reports that the wound care of her arm became progressively difficult and worsening and that was what prompted her to present to the hospital. 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 Pt follows with Dr. Grove and had been treated with multiple lines of chemotherapy . Pt also with hx of DVT on Xarelto and had in December 2017 a new DVT in left subclavian vein, axillary vein, and possibly jugular vein. Pt has been dealing with severe lymphedema left arm. She has had outpt evaluation with surgical and wound care teams. She has tried compression. She presents her with swelling/oozing of fluid and blood from the left arm. It is a large open wound over the left arm. Discussed with DR Hurst and decided to try wrapping the arm with surgicel. This morning there is still some leakage through but seems to be containing the drainage for the most part - Case d/w Palliative medicine team (05/16/18). Palliative will consult today. - Case d/w Dr. Grove (05/16/18). Pt receiving immunotherapy. Pt has only received initial (one) IV immunotherapy treatment, eventually frequency will decrease to monthly. - Case d/w CP Wound Care. (05/17) - Continue Surgicel - Pt can have dressing changes with wound care daily - Case d/w General Surgery, Dr. Lewis Hurst, (05/16/18). - continue pain control. - Patient with history of DVT, was on Xarelto, currently on hold due to bleeding left arm wound. - SCDs for DVT prophylaxis - supportive care - BMP showed NA 129, K 5.2 (05/17) - give kayexalate - repeat BMP 05/18 Na 130, K 4.2 - PT evaluation showed patient only able to ambulate 15 feet. Patient endorses weakness and feels unable to care for herself at home due to weakness. Agreeable to DC to SNF. Daily dressing changes to the left arm utilizing - surgicel (nu-knit) to bleeding areas - then cover with ABD pads - then cover with kerlex - then place stockinet - Time Spent with Patient Total time spent providing and/or coordinating discharge services: Greater than 30 minutes - Quality: VTE Deep Vein Thrombosis/Pulmonary Embolism Present on Admission: No Exam Vital signs: 05/18/18 00:00 05/18/18 04:00 05/18/18 08:00 Temperature 98.3 F 97.7 F 98 F Pulse Rate 107 H 106 H 114 H Respiratory Rate 16 16 16 Blood Pressure 109/60 128/68 143/82 H Pulse Oximetry 94 L 95 96 Narrative: GENERAL: This is a well-nourished, well-developed patient, in no apparent distress. CARDIOVASCULAR: Regular rate and rhythm RESPIRATORY: Clear to auscultation. Breath sounds equal bilaterally. GASTROINTESTINAL: Abdomen soft, non-tender, nondistended. Normal active bowel sounds MUSCULOSKELETAL: left arm bandaged. NEURO: Alert & Oriented x4 to person, place, time, situation. Moves all ext x4 Results Procedures completed during hospitalization: none Labs on day of discharge: Labs from last 24 hours 05/18/18 05/17/18 05/17/18 05:07 14:00 14:00 WBC 10.2 RBC 2.96 L Hgb 9.8 L Hct 29.0 L MCV 97.8 MCH 33.1 MCHC 33.8 RDW 16.8 Plt Count 290 MPV 7.8 Neut % (Auto) 88.2 H Lymph % (Auto) 0.8 L Karn[place] % (Auto) 10.5 H Eos % (Auto) 0.4 Baso % (Auto) 0.1 Neut # (Auto) 9.0 H Lymph # (Auto) 0.1 L [place] # (Auto) 1.1 H Eos # (Auto) 0.0 Baso # (Auto) 0.0 WBC Differential . Differential Comment Auto diff final Sodium 130 L 128 L Potassium 4.2 D 5.2 H Chloride 93 L 93 L Carbon Dioxide 26.7 26.1 Anion Gap 10 9 BUN 31 H 25 H Creatinine 0.95 0.84 Estimated GFR 57 L 65 L Random Glucose 109 H 104 Calcium 8.3 L 8.1 L Total Bilirubin 0.3 AST 21 ALT 14 Alkaline Phosphatase 97 Total Protein 6.2 L D Albumin 1.9 L Preliminary micro results at discharge 05/13/18 16:45 Aerobic Blood Culture - Preliminary Blood - Peripheral No growth in 4 days Anaerobic Blood Culture - Preliminary No growth in 4 days 05/13/18 16:40 Aerobic Blood Culture - Preliminary Blood - Peripheral No growth in 4 days Anaerobic Blood Culture - Preliminary No growth in 4 days - Impressions ITS Impressions Chest X-Ray 05/13/18 15:54 CONCLUSION: Left pleural effusion left lung base consolidation not significantly changed. <Luis Marcelino B - Last Filed: 05/27/18 09:14> Date of admission: 05/13/18 17:34 Primary care physician: Keke Chapa MD DS: Diagnosis - Discharge Diagnosis (1) Open wound of left upper extremity Status: Acute (2) Lymphedema of left arm Status: Acute (3) Metastatic breast cancer Status: Chronic DS: Summary Hospital Course: The exam, history, and the medical decision-making described in the above note were completed with the assistance of the mid-level provider. I reviewed and agree with the findings presented. I attest that I had a [id number] encounter with the patient on the same day, and personally performed and documented my assessment and findings in the medical record. Patient examined. Assessment and plan formulated with Carla Wetzel PA-C. I agree with the above. - Time Spent with Patient Total time spent providing and/or coordinating discharge services: Greater than 30 minutes Results - Impressions ITS Impressions Chest X-Ray 05/13/18 15:54 CONCLUSION: Left pleural effusion left lung base consolidation not significantly changed. Discharge Plan - Discharge Order Discharge Orders: Discharge Order (Routine); Ordered 05/19/18 Ordered By: Carla Wetzel - Discharge Details Anticipated Discharge Date: 05/19/18 - Physicians Team Primary Care Provider: Keke Chapa Attending Provider: Jaime Gonzalez Other Providers: [facility] ROMAIN, ; Jorge Otero MD ; Mary Grove MD ; [facility],[employer] ; [facility]
--- NOTE | 2018-05-18 12:31 | P.PNONC ---
Subjective Interval history: Patient sitting up in chair, states it is worn her out and she needs to get back in bed. She is assisted back to the bed. She reports left arm drainage is controlled with Surgicel. She has been getting daily wound care with the wound care nurse. She still reports generalized weakness and fatigue. Objective Vital Signs/Intake & Output: Vital Signs 05/17/18 16:11 05/17/18 20:00 05/18/18 00:00 Temperature 97.9 F 98 F 98.3 F Pulse Rate 112 H 125 H 107 H Respiratory Rate 18 16 16 Blood Pressure 121/77 136/94 H 109/60 Pulse Oximetry 95 96 94 L 05/18/18 04:00 05/18/18 08:00 Temperature 97.7 F 98 F Pulse Rate 106 H 114 H Respiratory Rate 16 16 Blood Pressure 128/68 143/82 H Pulse Oximetry 95 96 Intake & Output 05/17/18 05/18/18 05/18/18 18:59 06:59 18:59 Intake Total 360 / 360 60 / 60 Balance 360 / 360 60 / 60 Weight 46.8 kg Intake: Oral 360 / 360 60 / 60 Other: # Voids 2 1 Date of Last Bowel Movement 05/17/18 # Bowel Movements 0 1 Result Diagrams: 05/17/18 14:00 05/18/18 05:07 Laboratory Results: Laboratory Results - last 24 hr 05/17/18 05/17/18 05/18/18 14:00 14:00 05:07 WBC 10.2 RBC 2.96 L Hgb 9.8 L Hct 29.0 L MCV 97.8 MCH 33.1 MCHC 33.8 RDW 16.8 Plt Count 290 MPV 7.8 Neut % (Auto) 88.2 H Lymph % (Auto) 0.8 L [place] % (Auto) 10.5 H Eos % (Auto) 0.4 Baso % (Auto) 0.1 Neut # (Auto) 9.0 H Lymph # (Auto) 0.1 L [place] # (Auto) 1.1 H Eos # (Auto) 0.0 Baso # (Auto) 0.0 WBC Differential . Differential Comment Auto diff final Sodium 128 L 130 L Potassium 5.2 H 4.2 D Chloride 93 L 93 L Carbon Dioxide 26.1 26.7 Anion Gap 9 10 BUN 25 H 31 H Creatinine 0.84 0.95 Estimated GFR 65 L 57 L Random Glucose 104 109 H Calcium 8.1 L 8.3 L Total Bilirubin 0.3 AST 21 ALT 14 Alkaline Phosphatase 97 Total Protein 6.2 L D Albumin 1.9 L Culture Results: Microbiology 05/13/18 16:45 Aerobic Blood Culture - Final Blood - Peripheral No growth in 5 days Anaerobic Blood Culture - Final No growth in 5 days 05/13/18 16:40 Aerobic Blood Culture - Final Blood - Peripheral No growth in 5 days Anaerobic Blood Culture - Final No growth in 5 days Medications: Active Medications Generic Name Dose Route Start Last Admin Trade Name Freq PRN Reason Stop Dose Admin Al Hydroxide/Mg Hydroxide 30 ml 05/15/18 20:04 05/15/18 20:55 Milk Of Magnesia Liq PO 30 ml DAILY PRN Administration CONSTIPATION Duloxetine HCl 40 mg 05/14/18 09:00 05/18/18 08:50 Cymbalta PO 40 mg DAILY ARIELLE Administration Fentanyl 1 patch 05/13/18 18:00 05/16/18 17:51 Duragesic 25 Mcg Patch.72hr T-DERMAL 1 patch Q72H ARIELLE Administration Gabapentin 300 mg 05/13/18 21:00 05/17/18 20:11 Neurontin PO 300 mg HS ARIELLE Administration Lorazepam 0.5 mg 05/13/18 17:37 05/17/18 20:10 Ativan PO 0.5 mg HS PRN Administration Anxiety Methadone HCl 10 mg 05/13/18 21:00 05/18/18 08:51 Dolophine PO 10 mg BID ARIELLE Administration Patch Removal 1 each 05/16/18 18:00 05/16/18 17:53 Remove Old Patch T-DERMAL 1 each Q72H ARIELLE Administration Sodium Chloride 2 ml 05/14/18 09:00 05/18/18 08:52 Ns Flush IV.FLUSH 2 ml BID ARIELLE Administration Sodium Chloride 2 ml 05/14/18 06:28 05/14/18 21:06 Ns Flush IV.FLUSH 2 ml PRN PRN Administration FLUSH AFTER USING IV ACCESS Objective Remarks: GENERAL: Chronically ill-appearing elderly female patient, in no acute distress. SKIN: Warm and dry. Chest with multiple surgical scars and radiation braun. HEAD: Normocephalic. EYES: No scleral icterus. No injection or drainage. NECK: Supple, trachea midline. CARDIOVASCULAR: Regular rate and rhythm without murmurs. RESPIRATORY: Breath sounds clear, equal bilaterally. Nonlabored at rest. GASTROINTESTINAL: Abdomen soft, non-tender, nondistended. EXTREMITIES: No cyanosis, or edema. Gauze dressing in place to entire LUE. MUSCULOSKELETAL: Decreased muscle tone. NEUROLOGICAL: No obvious focal deficit. Awake, alert, and oriented x3. PSYCHIATRIC: Appropriate mood and affect; insight and judgment normal. Assessment/Plan - Plan 82-year-old female with metastatic breast cancer who has progressed on multiple lines of therapy, currently on checkpoint inhibitor with nivolumab. Admitted with weeping wounds from left arm. 1. Surgicel to left arm to control drainage. Management per wound care. 2. S/P completion of 5 double radiation treatments last Wednesday. 3. Patient with history of DVT, was on Xarelto, currently on hold due to bleeding left arm wound. 4. Generalized weakness, continues. Patient was evaluated by physical therapy. 5. Patient with possible discharge to SNF today. She should follow-up with outpatient oncology in 1-2 weeks. - Attending Statement The exam, history, and the medical decision-making described in the above note were completed with the assistance of the mid-level provider. I reviewed and agree with the findings presented. I attest that I had a [id number] encounter with the patient on the same day, and personally performed and documented my assessment and findings in the medical record. Patient seen and examined. She was agreeable to go to a alf facility tomorrow, [facility]. Noted is increased swelling in the left upper arm and the left hand. We discussed adjusting the dressing to include the fingers to minimize the swelling in the hand. We discussed keeping her hand elevated. She is due for her next dose of Opdivo on Wednesday. We discussed possibly administering her Opdivo a day early tomorrow prior to her transfer to [facility] in order to save her the trip. This will be coordinated with her primary team and her nurse. Oncology clinic will be ready to receive her. We discussed promising data on the checkpoint inhibitor for triple negative breast cancers. For this reason she is eager to proceed with the immunotherapy. She seems to be tolerating it well without significant toxicity.
--- NOTE | 2018-05-18 15:01 | P.PNIM ---
Subjective Interval history: patient offers no new concerns/complaints Physical Exam Vital signs: Vital Signs 05/17/18 16:11 05/17/18 20:00 05/18/18 00:00 Temperature 97.9 F 98 F 98.3 F Pulse Rate 112 H 125 H 107 H Respiratory Rate 18 16 16 Blood Pressure 121/77 136/94 H 109/60 Pulse Oximetry 95 96 94 L 05/18/18 04:00 05/18/18 08:00 05/18/18 12:00 Temperature 97.7 F 98 F 98 F Pulse Rate 106 H 114 H 114 H Respiratory Rate 16 16 16 Blood Pressure 128/68 143/82 H 143/82 H Pulse Oximetry 95 96 96 Intake & Output 05/17/18 05/18/18 05/18/18 18:59 06:59 18:59 Intake Total 360 / 360 60 / 60 Balance 360 / 360 60 / 60 Weight 46.8 kg Intake: Oral 360 / 360 60 / 60 Other: # Voids 2 1 Date of Last Bowel Movement 05/17/18 # Bowel Movements 0 1 Narrative: GENERAL: This is a well-nourished, well-developed patient, in no apparent distress. CARDIOVASCULAR: Regular rate and rhythm RESPIRATORY: Clear to auscultation. Breath sounds equal bilaterally. GASTROINTESTINAL: Abdomen soft, non-tender, nondistended. Normal active bowel sounds MUSCULOSKELETAL: left arm bandaged. NEURO: Alert & Oriented x4 to person, place, time, situation. Moves all ext x4 Results - Labs CBC & Chem 7: 05/17/18 14:00 05/18/18 05:07 Laboratory Results - last 24 hr 05/17/18 05/18/18 14:00 05:07 Sodium 128 L 130 L Potassium 5.2 H 4.2 D Chloride 93 L 93 L Carbon Dioxide 26.1 26.7 Anion Gap 9 10 BUN 25 H 31 H Creatinine 0.84 0.95 Estimated GFR 65 L 57 L Random Glucose 104 109 H Calcium 8.1 L 8.3 L Total Bilirubin 0.3 AST 21 ALT 14 Alkaline Phosphatase 97 Total Protein 6.2 L D Albumin 1.9 L Microbiology 05/13/18 16:45 Blood - Peripheral Aerobic Blood Culture - Final No growth in 5 days 05/13/18 16:45 Blood - Peripheral Anaerobic Blood Culture - Final No growth in 5 days 05/13/18 16:40 Blood - Peripheral Aerobic Blood Culture - Final No growth in 5 days 05/13/18 16:40 Blood - Peripheral Anaerobic Blood Culture - Final No growth in 5 days - Procedures none Assessment and Plan - Assessment (1) Multiple open wounds of left upper extremity Code(s): S41.102A - Unspecified open wound of left upper arm, initial encounter Status: Acute Plan: Open wound of left upper extremity Locally advance Breast CA - Pt is an 82 y/o WF with 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 Pt follows with Dr. Grove and had been treated with multiple lines of chemotherapy . Pt also with hx of DVT on Xarelto and had in December 2017 a new DVT in left subclavian vein, axillary vein, and possibly jugular vein. Pt has been dealing with severe lymphedema left arm. She has had outpt evaluation with surgical and wound care teams. She has tried compression. She presents her with swelling/oozing of fluid and blood from the left arm. It is a large open wound over the left arm. Discussed with DR Hurst and decided to try wrapping the arm with surgicel. This morning there is still some leakage through but seems to be containing the drainage for the most part - Case d/w Palliative medicine team (05/16/18). Palliative will consult today. - Case d/w Dr. Grove (05/16/18). Pt receiving immunotherapy. Pt has only received initial (one) IV immunotherapy treatment, eventually frequency will decrease to monthly. - Case d/w CP Wound Care. (05/17) - Continue Surgicel - Pt can have dressing changes with wound care daily - Case d/w General Surgery, Dr. Lewis Hurst, (05/16/18). - continue pain control. - Patient with history of DVT, was on Xarelto, currently on hold due to bleeding left arm wound. - SCDs for DVT prophylaxis - supportive care - BMP showed NA 129, K 5.2 (05/17) - give kayexalate - repeat BMP 05/18 Na 130, K 4.2 - PT evaluation showed patient only able to ambulate 15 feet. Patient endorses weakness and feels unable to care for herself at home due to weakness. Agreeable to DC to SNF, tomorrow. Daily dressing changes to the left arm utilizing - surgicel (nu-knit) to bleeding areas - then cover with ABD pads - then cover with kerlex - then place stockinet Plan to DC to SNF in AM (2) Metastatic breast cancer Code(s): C50.919 - Malignant neoplasm of unspecified site of unspecified female breast Status: Chronic - Attending Attestation The exam, history, and the medical decision-making described in the above note were completed with the assistance of the mid-level provider. I reviewed and agree with the findings presented. I attest that I had a [id number] encounter with the patient on the same day, and personally performed and documented my assessment and findings in the medical record. Patient examined. Assessment and plan formulated with Carla Wetzel PA-C. I agree with the above.
--- NOTE | 2018-05-18 16:57 | P.PNPAL ---
Reason for Visit Reason for visit: a. To assist with evaluation and management of symptoms including: pain, constipation. debility b. To assist medical decision maker(s) with: better understanding of current medical conditions; weighing benefits/burdens of medical treatment options; making medical treatment decisions. Subjective Subjective/Interval History: Mrs. Whaley is an 82 year old female with a history of lymphedema, history of DVT and recurrent breast cancer. Patient presented to [facility] on 05/13/2018 for evaluation of weeping wounds in the left upper extremity. She had been evaluated by a home health/wound care nurse who advised she come to the ED to be evaluated because the wounds were worsening. Follow up visit with Velvet Donovan, Palliative [employer] WORKER [employer]TER, for symptom management. Patient denies pain on exam; previously c/o left arm pain. Options in managing pain were previously discussed, but the patient stated she is satisfied with her current medication regimen. She is followed by pain management outpatient. She currently receives methadone 10mg PO 2 times daily, Duragesic patch 25mcg and gabapentin 300 mg qHS. PRN Dilaudid is ordered but has not been utilized. Patient endorses progressively increased weakness. She was only able to ambulate approximately 15 feet per PT evaluation. Requiring daily drsg changes to left arm. Patient is now agreeable to SNF placement for rehabilitation at discharge with the goal of returning home. Discussed with case management. Tentative plans for patient to be discharged to [facility] in the upcoming days. The process of cardiopulmonary resuscitation was discussed at length with the patient. Patient understands that she is terminally ill stating, "I am not ready to , but I know I'm getting closer. She verbalizes aggressive goals up to the point of cardiopulmonary resuscitation. She requests in the event that she stops breathing or her heart stops beating, she be allowed to pass peacefully and naturally at that time. Code status changed to NO CODE per patient's request. Community DNR completed today 05/18/2018; yellow copy needs to be sent with the patient at discharge. Objective Vital Signs: Vital Signs 05/17/18 20:00 05/18/18 00:00 05/18/18 04:00 Temperature 98 F 98.3 F 97.7 F Pulse Rate 125 H 107 H 106 H Respiratory Rate 16 16 16 Blood Pressure 136/94 H 109/60 128/68 Pulse Oximetry 96 94 L 95 05/18/18 08:00 05/18/18 12:00 05/18/18 15:54 Temperature 98 F 98 F 97.8 F Pulse Rate 114 H 114 H 108 H Respiratory Rate 16 16 18 Blood Pressure 143/82 H 143/82 H 123/70 Pulse Oximetry 96 96 93 L Intake & Output 05/17/18 05/18/18 05/18/18 18:59 06:59 18:59 Intake Total 360 / 360 60 / 60 Balance 360 / 360 60 / 60 Weight 46.8 kg Intake: Oral 360 / 360 60 / 60 Other: # Voids 2 1 Date of Last Bowel Movement 05/17/18 # Bowel Movements 0 1 Physical Exam: CONSTITUTIONAL/GENERAL: This is a frail, elderly female in no acute distress TUBES/LINES/DRAINS: PIV, VAD SKIN: No jaundice, rashes, or lesions. Ecchymoses on upper extremities. . Skin temperature appropriate. Not diaphoretic. HEAD: Atraumatic. Normocephalic. EYES: Pupils equal and round and reactive. Extraocular motions intact. No scleral icterus. No injection or drainage. Fundi not examined. ENT: Hearing grossly normal. Nose without bleeding or purulent drainage. Throat without visible erythema, exudates, masses, or lesions. NECK: Trachea midline. Supple, nontender. No palpable thyroid enlargement or nodularity. CARDIOVASCULAR: Regular rate and rhythm without murmurs, gallops, or rubs. RESPIRATORY/CHEST: Symmetric, unlabored respirations. Clear to auscultation. Breath sounds equal bilaterally. No wheezes, rales, or rhonchi. GASTROINTESTINAL: Abdomen soft, non-tender, nondistended. Bowel sounds present. GENITOURINARY: Without palpable bladder distension. MUSCULOSKELETAL: Extremities without cyanosis or mottling. Left upper extremity with lymphedema, dressing slightly with foul smelling drainage. LYMPHATICS: No palpable cervical or supraclavicular adenopathy. NEUROLOGICAL: Lethargic. Arouses to verbal stimuli. Follows commands. Cognitively sharp. Moves all extremities. PSYCHIATRIC: No obvious anxiety/depression. No apparent hallucinations or other psychotic thought process. Diagnostic Tests Laboratory: Laboratory Results - last 72 hr 05/17/18 05/17/18 05/18/18 14:00 14:00 05:07 WBC 10.2 RBC 2.96 L Hgb 9.8 L Hct 29.0 L MCV 97.8 MCH 33.1 MCHC 33.8 RDW 16.8 Plt Count 290 MPV 7.8 Neut % (Auto) 88.2 H Lymph % (Auto) 0.8 L Henry % (Auto) 10.5 H Eos % (Auto) 0.4 Baso % (Auto) 0.1 Neut # (Auto) 9.0 H Lymph # (Auto) 0.1 L Henry # (Auto) 1.1 H Eos # (Auto) 0.0 Baso # (Auto) 0.0 WBC Differential . Differential Comment Auto diff final Sodium 128 L 130 L Potassium 5.2 H 4.2 D Chloride 93 L 93 L Carbon Dioxide 26.1 26.7 Anion Gap 9 10 BUN 25 H 31 H Creatinine 0.84 0.95 Estimated GFR 65 L 57 L Random Glucose 104 109 H Calcium 8.1 L 8.3 L Total Bilirubin 0.3 AST 21 ALT 14 Alkaline Phosphatase 97 Total Protein 6.2 L D Albumin 1.9 L Result Diagrams: 05/17/18 14:00 05/18/18 05:07 Microbiology: Microbiology 05/13/18 16:45 Aerobic Blood Culture - Final Blood - Peripheral No growth in 5 days Anaerobic Blood Culture - Final No growth in 5 days 05/13/18 16:40 Aerobic Blood Culture - Final Blood - Peripheral No growth in 5 days Anaerobic Blood Culture - Final No growth in 5 days Imaging: Chest X-Ray 05/13/18 15:54 CONCLUSION: Left pleural effusion left lung base consolidation not significantly changed. Assessment and Plan - Disease Oriented Problem List (1) Metastatic breast cancer (2) Pancytopenia (3) DVT (deep venous thrombosis) (4) HTN (hypertension) (5) Multiple open wounds of left upper extremity (6) Lymphedema Pertinent Non-Medical Issues: Psychosocial: Patient was born in [facility] but has lived in [place] for approximately 15 years. She is and lives with her . They have no children. 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 Per [place] statutes, in the absence of written advanced directives healthcare proxy decision making falls to the patient's . Ethical issues impacting care: No known ethical issues impacting care at this time. Important Contacts: Chi Whaley, : [phone] Prognosis: Patient is an 82-year-old female with extensive metastatic breast cancer. She has had disease progression despite multiple lines of therapy. Admitted with weeping wounds on the left arm. She appears quite frail and cachectic. Given patient's advanced age, progressive cancer and poor functioning status, she is at high risk for ongoing decline. If/when her medical treatment goals become comfort oriented, hospice would be an appropriate option at that time. Code Status: No Code DNR Plan: * FULL CODE * Patient currently has good insight and judgment toward her medical conditions. Per [place] statutes, in the absence of written advanced directives healthcare proxy decision making falls to the patient's . * Patient verbalizing ongoing AGGRESSIVE GOALS * Discussed patient with nurse and community case manager * Dual visit with Palliative Care [employer] WORKER [employer]TER, Velvet Donovan. Community DMR completed. Yellow copy should be sent with patient at discharge. * Symptom management: Pain: Patient denies pain on exam. She reports intermittent pain in her left arm which can be severe at times, but states she is satisfied with her current medication regimen. She currently receives methadone 10mg PO 2 times daily, Duragesic patch 25mcg and gabapentin 300 mg qHS. PRN Dilaudid is ordered but has not been utilized. She is followed by pain management outpatient. Constipation: Patient reports constipation that she associates with her pain management. Other contributing factors may include inadequate dietary fiber or fluid intake, decreased activity, inadequate privacy, metabolic disorder secondary to cancer. Current orders for milk of magnesia daily PRN. LBM: 06/17/2018. Will monitor; consider starting the patient on scheduled senna-s or adding PRN medications as needed. Debility: Patient endorses progressively increased weakness. She was only able to ambulate approximately 15 feet per PT evaluation. Requiring daily dressing changes to left arm. Patient is now agreeable to SNF placement for rehabilitation at discharge with the goal of returning home. Tentative plans for patient to be discharged to [facility] in the upcoming days. * Palliative care will continue to follow this patient throughout her hospitalization to establish trust, assist with symptom management and clarification of medical treatment goals.
[2018-05-18] MEDS: Enoxaparin Inj 30 MG/0.3 ML Syringe SQ SCH (18:58)
[2018-05-18] MEDS: Gabapentin 300 MG Capsule PO SCH (20:10)
[2018-05-19] MEDS: Enoxaparin Inj 30 MG/0.3 ML Syringe SQ SCH (09:12)
[2018-05-19] MEDS: Methadone 10 MG Tablet PO SCH (09:12)
[2018-05-19] MEDS: Sodium Chloride 0.9% 2 ML Flush BID IV.FLUSH SCH (09:13)
[2018-05-19 10:08] VITALS: RESP 18
[2018-05-19 15:54] VITALS: BP 115/64; PULSE 109; TEMP 97.4; O2SAT 94
[2018-05-19] MEDS ORDERED: Senna/Docusate Sodium 8.6/50 MG Tablet PO SCH (21:00)
== END 2018-05-19 15:48 ==
LOC: NEDA 13:47 → NEPD 13:47 → N04 19:05
PROVIDERS: ADMIT Hospitalist; ATTEND Hospitalist